=== PATIENT | female | born 2000 | race Hispanic/Latino ===

== ENCOUNTER 2022-12-12 10:17 | Inpatient (IN) | payer BC, OTHER ==
[2022-12-12] VITALS (19 sets, daily range): BP systolic 91–114; BP diastolic 43–68; PULSE 87–123; RESP 16–23; O2SAT 97–100
[~2022-12-12] VITALS: Ht 160 cm; Wt 62.1 kg
[2022-12-12 10:41] LABS: BASOPHILS # (AUTO) 0.12 K/uL (0.00-0.20); BASOPHILS % (AUTO) 0.9 % (0.0-5.0); EOSINOPHILS # (AUTO) 0.02 K/uL (0.00-0.70); EOSINOPHILS % (AUTO) 0.2 % (0.0-8.0); HEMATOCRIT 42.8 % (36-48); IMMATURE GRANULOCYTE ABSOLUTE 0.16 K/uL (0-1); LYMPHOCYTES # (AUTO) 2.2 K/uL (1.0-4.8); LYMPHOCYTES % (AUTO) 16.7 % (21.0-51.0); MEAN CORPUSCULAR HEMOGLOBIN 32.1 pg (27.0-33.0); MEAN CORPUSCULAR HGB CONC 32.2 g/dL (32.0-36.0); MEAN CORPUSCULAR VOLUME 99.5 fL (79-99); MONOCYTES # (AUTO) 0.9 K/uL (0.1-1.0); MONOCYTES % (AUTO) 6.7 % (3.0-13.0); NEUTROPHILS # (AUTO) 9.6 K/uL (1.8-7.7); NEUTROPHILS % (AUTO) 74.3 % (40.0-77.0); PLATELET COUNT (AUTO) 322 K/uL (130-400); RED CELL DISTRIBUTION WIDTH 12.7 % (11.0-15.5)
[2022-12-12] MEDS ORDERED: ONDANSETRON 4MG INJ ONE (10:59)
[2022-12-12] MEDS ORDERED: 0.9%NACL 1000ML 1,000 ML IV ONE ×2 (11:00→12:39)
[2022-12-12 11:01] LABS: ALBUMIN 3.1 g/dL (3.5-5.0); BILIRUBIN,TOTAL 0.5 mg/dL (0.2-1.0); CREATININE 1.3 mg/dL (0.5-1.5); POTASSIUM 4.5 mmol/L (3.5-5.1); TOTAL PROTEIN, SERUM 7.4 g/dL (6.0-8.3)
[2022-12-12] MEDS ORDERED: METOCLOPRAMIDE 10 MG/2 ML VIAL ONE ×2 (12:39→22:40)
[2022-12-12] MEDS ORDERED: INSULIN REGULAR, HUMAN 3ML 100 UNIT in 0.9%NACL 100ML 99 ML IV SCH ×2 (13:00)
[2022-12-12] MEDS ORDERED: METOCLOPRAMIDE 10 MG/2 ML VIAL IVP ONE (13:00)
[2022-12-12 13:07] LABS: ABG BASE EXCESS -25.5 mmol/L (-2.0-3.0); ABG OXYGEN SATURATION 97.4 % (95.0-99.0); ABG PCO2 < 15 mmHg (32-45); ABG PH 7.038 (7.350-7.450); PO2, ARTERIAL BG 133.4 mmHg (83.0-108.0); VENT MODE, BG RA (ROOM AIR)
[2022-12-12] MEDS ORDERED: 0.9%NACL 1000ML 1,000 ML IV SCH (13:30)
[2022-12-12] MEDS ORDERED: MAGNESIUM 2GM PREMIX 50ML 50 ML IV SCH (13:30)
[2022-12-12 13:46] LABS: APPEARANCE,URINE CLEAR (CLEAR); BILIRUBIN,URINE NEGATIVE (NEGATIVE); COLOR,URINE COLORLESS (YELLOW); GLUCOSE, URINE (UA) >=1000 mg/dL (NEGATIVE); KETONES,URINE 150 mg/dL (NEGATIVE); LEUKOCYTE ESTERASE ,URINE NEGATIVE Leu/uL (NEGATIVE); NITRATE,URINE NEGATIVE (NEGATIVE); OCCULT BLOOD,URINE NEGATIVE (NEGATIVE); PH,URINE 5.5 (5.0-8.0); PROTEIN,URINE 30 mg/dL (NEGATIVE); UROBILINOGEN,URINE 0.2 mg/dL (0.2-1.0)
[2022-12-12 13:47] LABS: ADD UA MICROSCOPIC YES
[2022-12-12 13:51] LABS: MUCUS,URINE RARE LPF (None Seen); RBC,URINE 0-1 /HPF (0-1); SQUAMOUS EPITHELIAL CELL,UR RARE /HPF (0-2); WBC,URINE 0-1 /HPF (0-1)
[2022-12-12] MEDS ORDERED: INSULIN GLARGINE 100 UNITS/ML 10 ML VIAL SQ ONE (13:59)
[2022-12-12] MEDS ORDERED: POTASSIUM CHLORIDE 10% ELIXIR 20 MEQ/15 ML UDCUP PO PRN (14:00)
[2022-12-12] MEDS ORDERED: LACTATED RINGERS 1000ML 1,047 ML IV ONE (14:00)
[2022-12-12] MEDS ORDERED: POTASSIUM CHLORIDE 20MEQ/100ML 100 ML IV PRN ×2 (14:00)
[2022-12-12 14:42] LABS: CHLORIDE 106 mmol/L (101-111); CREATININE 1.2 mg/dL (0.5-1.5); GLOMERULAR FILTR. RATE CALC 65 mL/min (>90); POTASSIUM 5.2 mmol/L (3.5-5.1); SODIUM SERUM 141 mmol/L (136-145); UREA NITROGEN, BLOOD 19 mg/dL (7-18)
[2022-12-12 14:49] LABS: CARBON DIOXIDE < 5 mmol/L (21-32); GLUCOSE,RANDOM 544 mg/dL (70-105)
[2022-12-12] MEDS ORDERED: SODIUM BICARB 50MEQ 50ML VIAL 150 ML ONE (15:05)
[2022-12-12 17:47] LABS: CREATININE 1.2 mg/dL (0.5-1.5); POTASSIUM 3.6 mmol/L (3.5-5.1)
[2022-12-12] MEDS: D5W-1/2 NS/20MEQ KCL 1,000 ML IV SCH (18:05)
[2022-12-12] MEDS ORDERED: INSU200I SQ (18:12)
[2022-12-12] MEDS ORDERED: PANTOPRAZOLE 40 MG/VIAL ONE (20:09)
[2022-12-12] MEDS: ONDANSETRON 4MG INJ IVP PRN (20:15)
[2022-12-12] MEDS: POTASSIUM CHLORIDE 10MEQ/100ML 100 ML IV PRN ×2 (20:15→21:41)
[2022-12-12] MEDS: INSULIN GLARGINE 100 UNITS/ML 10 ML VIAL SQ SCH (20:25)
[2022-12-12] MEDS: PANTOPRAZOLE 40 MG/VIAL IVP SCH (21:00)
[2022-12-12 21:28] LABS: CREATININE 1.1 mg/dL (0.5-1.5); POTASSIUM 3.2 mmol/L (3.5-5.1)
[2022-12-12] MEDS ORDERED: PHARMACY COMMUNICATION MISC SCH (22:30)
[2022-12-12] MEDS ORDERED: MAG/ALUM/SIMETH 30 ML UDCUP ONE (22:30)
[2022-12-12] MEDS: METOCLOPRAMIDE 10 MG/2 ML VIAL IVP SCH (22:30)
[2022-12-12] MEDS ORDERED: LIDOCAINE HCL 2% VISCOUS 15 ML UDCUP ONE (22:32)
[2022-12-13] VITALS (29 sets, daily range): BP systolic 93–115; BP diastolic 43–71; PULSE 88–115; RESP 9–22; O2SAT 97–99
[2022-12-13] MEDS: POTASSIUM CHLORIDE 10MEQ/100ML 100 ML IV PRN ×5 (00:02→08:09)
[2022-12-13 00:23] LABS: SARS-CoV-2, RNA, NAAT NEGATIVE SARS CoV-2 (NEGATIVE)
[2022-12-13 00:26] LABS: INFLUENZA TYPE A Negative For Type A (NEGATIVE); INFLUENZA TYPE B Negative For Type B (NEGATIVE)
[2022-12-13] MEDS ORDERED: COMPOUND PO MISCELLANEOUS 1 EACH MISC MISC PRN (00:30)
[2022-12-13] MEDS ORDERED: MAG/AL/SIMETH 30 ML+LIDO2% VISC+DIPHEN 75MG 30ML PO PRN ×3 (00:30)
[2022-12-13 01:26] LABS: CREATININE 1.1 mg/dL (0.5-1.5); POTASSIUM 3.5 mmol/L (3.5-5.1)
[2022-12-13] MEDS: D5W-1/2 NS/20MEQ KCL 1,000 ML IV SCH ×2 (01:30→06:44)
[2022-12-13] MEDS: ONDANSETRON 4MG INJ IVP PRN (04:06)
[2022-12-13 04:10] LABS: BASOPHILS # (AUTO) 0.04 K/uL (0.00-0.20); BASOPHILS % (AUTO) 0.3 % (0.0-5.0); HEMATOCRIT 36.6 % (36-48); IMMATURE GRANULOCYTE ABSOLUTE 0.09 K/uL (0-1); LYMPHOCYTES # (AUTO) 2.3 K/uL (1.0-4.8); LYMPHOCYTES % (AUTO) 19.2 % (21.0-51.0); MEAN CORPUSCULAR HEMOGLOBIN 32.4 pg (27.0-33.0); MEAN CORPUSCULAR HGB CONC 33.6 g/dL (32.0-36.0); MEAN CORPUSCULAR VOLUME 96.3 fL (79-99); MONOCYTES # (AUTO) 1.4 K/uL (0.1-1.0); MONOCYTES % (AUTO) 12.1 % (3.0-13.0); NEUTROPHILS # (AUTO) 8.1 K/uL (1.8-7.7); NEUTROPHILS % (AUTO) 67.6 % (40.0-77.0); PLATELET COUNT (AUTO) 301 K/uL (130-400); RED CELL DISTRIBUTION WIDTH 13.1 % (11.0-15.5)
[2022-12-13 04:21] LABS: MAGNESIUM 1.5 mg/dL (1.80-2.40); POTASSIUM 3.6 mmol/L (3.5-5.1)
[2022-12-13] MEDS: METOCLOPRAMIDE 10 MG/2 ML VIAL IVP SCH ×3 (06:30→17:37)
[2022-12-13] MEDS: INSULIN GLARGINE 100 UNITS/ML 10 ML VIAL SQ SCH ×2 (06:43→21:00)
[2022-12-13] MEDS: INSULIN HUMULIN R 100 UNIT/ML 3ML SQ SCH ×4 (07:30→21:00)
[2022-12-13] MEDS ORDERED: MAGNESIUM 2GM PREMIX 50ML 50 ML IV SCH (07:30)
[2022-12-13] MEDS: PANTOPRAZOLE 40 MG/VIAL IVP SCH ×2 (08:10→21:00)
[2022-12-13] MEDS: 0.9%NACL 1000ML 1,000 ML IV SCH ×2 (09:34→17:41)
[2022-12-13 09:45] LABS: CREATININE 0.8 mg/dL (0.5-1.5); POTASSIUM 3.6 mmol/L (3.5-5.1)
[2022-12-13] MEDS ORDERED: INSULIN GLARGINE 100 UNITS/ML 10 ML VIAL SQ ONE (12:00)
[2022-12-13 13:34] LABS: POTASSIUM 2.9 mmol/L (3.5-5.1)
[2022-12-13] MEDS: KCL 20 MEQ ERTAB PO PRN ×3 (13:48→17:37)
[2022-12-13 18:07] LABS: CREATININE 0.7 mg/dL (0.5-1.5); POTASSIUM 3.1 mmol/L (3.5-5.1)
[2022-12-13 21:40] LABS: CREATININE 0.6 mg/dL (0.5-1.5); POTASSIUM 3.3 mmol/L (3.5-5.1)
[2022-12-14 05:00] VITALS: BP 107/68; PULSE 93; RESP 16
[2022-12-14 05:03] LABS: HEMATOCRIT 33.9 % (36-48); MEAN CORPUSCULAR HEMOGLOBIN 31.8 pg (27.0-33.0); MEAN CORPUSCULAR HGB CONC 33.6 g/dL (32.0-36.0); MEAN CORPUSCULAR VOLUME 94.4 fL (79-99); RED BLOOD CELL COUNT(AUTO) 3.59 MIL/uL (4.00-5.50); RED CELL DISTRIBUTION WIDTH 12.9 % (11.0-15.5); WHITE BLOOD COUNT (AUTO) 10.1 K/uL (4.8-10.8)
[2022-12-14 05:31] LABS: ALBUMIN 2.2 g/dL (3.5-5.0); BILIRUBIN,DIRECT 0.1 mg/dL (0.0-0.3); BILIRUBIN,TOTAL 0.2 mg/dL (0.2-1.0); CREATININE 0.6 mg/dL (0.5-1.5); MAGNESIUM 2.4 mg/dL (1.80-2.40); POTASSIUM 3.4 mmol/L (3.5-5.1); TOTAL PROTEIN, SERUM 5.5 g/dL (6.0-8.3)
[2022-12-14] MEDS: METOCLOPRAMIDE 10 MG/2 ML VIAL IVP SCH ×2 (06:26→11:48)
[2022-12-14] MEDS: INSULIN HUMULIN R 100 UNIT/ML 3ML SQ SCH ×3 (06:28→11:55)
[2022-12-14] MEDS: INSULIN GLARGINE 100 UNITS/ML 10 ML VIAL SQ SCH (06:29)
[2022-12-14 08:00] VITALS: BP 119/77; PULSE 99; RESP 17; O2SAT 100
[2022-12-14] MEDS: PANTOPRAZOLE 40 MG/VIAL IVP SCH (08:18)
[2022-12-14] MEDS ORDERED: KCL 20 MEQ ERTAB PO ONE (10:30)
[2022-12-14 11:28] VITALS: BP 108/77; PULSE 103; RESP 17
[2022-12-14 11:29] VITALS: BP 161/64; PULSE 71; RESP 19
[2022-12-14] MEDS ORDERED: INSULIN HUMULIN R 100 UNIT/ML 3ML SQ SCH (11:30)
== END 2022-12-14 15:30 | disposition home or self-care (01) | DRG 637 ==
LOC: EDH 10:17 → EDHIP 10:18 → 2BH 15:43 → 4CH 12-13 12:00
PROVIDERS: ADMIT Internal Medicine; ATTEND Internal Medicine
DX: E10.10 Type 1 diabetes mellitus with ketoacidosis without coma (principal); R57.1 Hypovolemic shock; N17.9 Acute kidney failure, unspecified; E46 Unspecified protein-calorie malnutrition; E86.9 Volume depletion, unspecified; Z20.822 Contact with and (suspected) exposure to COVID-19; R00.0 Tachycardia, unspecified; E86.0 Dehydration; Z59.7 Insufficient social insurance and welfare support; Z79.4 Long term (current) use of insulin; Z91.148 Patient's other noncompliance with medication regimen for other reason; Z79.899 Other long term (current) drug therapy; Z68.24 Body mass index [BMI] 24.0-24.9, adult
CPT/HCPCS: 36415; 36600; 71045; 74176; 80048; 80053; 80061; 80076; 81001; 81025; 82010; 82803; 82948; 83036; 83605; 83690; 83735; 84145; 85025; 85027; 87635; 87804; C9113; G0378; J1815; J2405; J2765; J3475; J3480; J3490; J7030; J7120

== ENCOUNTER 2023-12-10 21:14 | Inpatient (IN) | payer BC, OTHER ==
[~2023-12-10] VITALS: Ht 160 cm; Wt 65.3 kg
[~2023-12-10 21:14] MED LIST: INSLAN SQ; INSU100V3 SQ
[2023-12-10 22:05] LABS: SARS-CoV-2, RNA, NAAT NEGATIVE SARS CoV-2 (NEGATIVE)
[2023-12-10 22:17] LABS: INFLUENZA TYPE A Negative For Type A (NEGATIVE); INFLUENZA TYPE B Negative For Type B (NEGATIVE)
[2023-12-10 22:20] LABS: RAPID GROUP A STREP positive (NEGATIVE)
[2023-12-10 22:32] LABS: BASOPHILS # (AUTO) 0.08 K/uL (0.00-0.20); BASOPHILS % (AUTO) 0.4 % (0.0-5.0); EOSINOPHILS # (AUTO) 2.13 K/uL (0.00-0.70); EOSINOPHILS % (AUTO) 10.4 % (0.0-8.0); HEMATOCRIT 40.6 % (36-48); IMMATURE GRANULOCYTE ABSOLUTE 0.16 K/uL (0-1); LYMPHOCYTES # (AUTO) 1.9 K/uL (1.0-4.8); LYMPHOCYTES % (AUTO) 9.1 % (21.0-51.0); MEAN CORPUSCULAR HGB CONC 34.7 g/dL (32.0-36.0); MEAN CORPUSCULAR VOLUME 89.2 fL (79-99); MONOCYTES % (AUTO) 4.8 % (3.0-13.0); NEUTROPHILS # (AUTO) 15.3 K/uL (1.8-7.7); NEUTROPHILS % (AUTO) 74.5 % (40.0-77.0); PLATELET COUNT (AUTO) 299 K/uL (130-400); RED BLOOD CELL COUNT(AUTO) 4.55 MIL/uL (4.00-5.50); RED CELL DISTRIBUTION WIDTH 11.6 % (11.0-15.5); WHITE BLOOD COUNT (AUTO) 20.6 K/uL (4.8-10.8)
[2023-12-10 22:44] LABS: CREATININE 1.4 mg/dL (0.5-1.0); POTASSIUM 4.5 mmol/L (3.5-5.1)
[2023-12-10] MEDS ORDERED: 0.9%NACL 1000ML 1,000 ML IV SCH (23:00)
[2023-12-10 23:56] LABS: WBC MORPHOLOGY CONSISTENT W/DIFF
[2023-12-11 00:02] LABS: ABG OXYGEN SATURATION 64.5 % (95.0-99.0); BASE EXCESS,VENOUS BLOOD GAS 0.8 (-2.0-3.0); DEVICE COMMENT VBG JOHNNY RN; HCO3,VENOUS BLOOD GAS 24.8 (21.0-28.0); PCO2,VENOUS BLOOD GAS 38 (32-45); PH,VENOUS BLOOD GAS 7.431 (7.350-7.450); PO2,VENOUS BLOOD GAS 29.5 mmHg (35.0-45.0); VENT MODE, BG RA (ROOM AIR)
[2023-12-11] MEDS: 0.9%NACL 1000ML 1,572 ML IV SCH (00:44)
[2023-12-11] MEDS: CEFTRIAXONE 1G VIAL IVPB SCH (00:57)
[2023-12-11] MEDS: ONDANSETRON 4MG INJ IVP SCH (00:57)
[2023-12-11] MEDS: INSULIN HUMULIN R 100 UNIT/ML 3ML IV ONE (02:10)
[2023-12-11] MEDS ORDERED: ACETAMINOPHEN 325 MG TAB PO PRN ×3 (03:00)
[2023-12-11] MEDS ORDERED: HYDRALAZINE 20MG/ML VIAL IV PRN (03:00)
[2023-12-11] MEDS ORDERED: VANCOMYCIN PROTOCOL PER PHARMACY IV PRN (03:00)
[2023-12-11] MEDS ORDERED: NITROGLYCERIN 0.4 MG SL TAB SL PRN (03:00)
[2023-12-11] MEDS ORDERED: OXYCODONE/ACETAMIN 5/325MG TAB PO PRN (03:00)
[2023-12-11] MEDS ORDERED: DEXTROSE 50%-WATER 50 ML DISP.SYRIN IV PRN (03:00)
[2023-12-11] MEDS ORDERED: MAG/ALUM/SIMETH 30 ML UDCUP PO PRN (03:00)
[2023-12-11] MEDS ORDERED: LACTULOSE 20 GM/30 ML UDCUP PO PRN (03:00)
[2023-12-11] MEDS ORDERED: DiphenhydrAMINE HCL 50 MG/ML VIAL IV PRN (03:00)
[2023-12-11] MEDS ORDERED: ZOLPIDEM TARTRATE 5 MG TAB PO PRN (03:00)
[2023-12-11] MEDS ORDERED: FAMOTIDINE 20MG VIAL IV PRN (03:00)
[2023-12-11] MEDS ORDERED: GLUCAGON 1MG KIT 1 MG ML IM PRN (03:00)
[2023-12-11] MEDS: METRONIDAZOLE 500MG/100ML BAG 100 ML IV SCH (04:15)
[2023-12-11] MEDS: 0.9%NACL 1000ML 1,000 ML IV SCH (04:15)
[2023-12-11] MEDS: ONDANSETRON 4MG INJ IV PRN (06:36)
[2023-12-11] MEDS: VANCOMYCIN 1.5 GM/250 ML BAG 250 ML IV ONE (06:47)
[2023-12-11 07:02] LABS: ALANINE AMINOTRANSFERASE 23 U/L (12-78); ALBUMIN 2.6 g/dL (3.5-5.0); AMMONIA 22 umol/L (11-32); ASPARTATE AMINOTRANSFERASE 14 U/L (10-37); BILIRUBIN,DIRECT < 0.1 mg/dL (0.0-0.3); BILIRUBIN,TOTAL 0.2 mg/dL (0.2-1.0); CARBON DIOXIDE 28 mmol/L (21-32); CHLORIDE 107 mmol/L (101-111); CREATININE 0.9 mg/dL (0.5-1.0); GLOMERULAR FILTR. RATE CALC 92 mL/min (>90); GLUCOSE,RANDOM 84 mg/dL (70-105); POTASSIUM 3.5 mmol/L (3.5-5.1); SODIUM SERUM 143 mmol/L (136-145); TOTAL PROTEIN, SERUM 6.6 g/dL (6.0-8.3); UREA NITROGEN, BLOOD 13 mg/dL (7-18)
[2023-12-11] MEDS: INSULIN HUMULIN R 100 UNIT/ML 3ML SQ SCH (07:30)
[2023-12-11 07:46] LABS: APPEARANCE,URINE CLOUDY (CLEAR); BILIRUBIN,URINE NEGATIVE (NEGATIVE); COLOR,URINE LIGHT-YELLOW (YELLOW); GLUCOSE, URINE (UA) >=1000 mg/dL (NEGATIVE); KETONES,URINE 20 mg/dL (NEGATIVE); LEUKOCYTE ESTERASE ,URINE NEGATIVE Leu/uL (NEGATIVE); NITRATE,URINE NEGATIVE (NEGATIVE); OCCULT BLOOD,URINE NEGATIVE (NEGATIVE); PROTEIN,URINE 10 mg/dL (NEGATIVE); UROBILINOGEN,URINE 0.2 mg/dL (0.2-1.0)
[2023-12-11 07:47] LABS: ADD UA MICROSCOPIC YES
[2023-12-11 07:53] LABS: MUCUS,URINE RARE LPF (None Seen); SQUAMOUS EPITHELIAL CELL,UR MANY /HPF (0-2)
[2023-12-11 08:52] LABS: BASOPHILS # (AUTO) 0.05 K/uL (0.00-0.20); BASOPHILS % (AUTO) 0.3 % (0.0-5.0); EOSINOPHILS # (AUTO) 0.09 K/uL (0.00-0.70); EOSINOPHILS % (AUTO) 0.5 % (0.0-8.0); HEMATOCRIT 37.9 % (36-48); IMMATURE GRANULOCYTE ABSOLUTE 0.07 K/uL (0-1); LYMPHOCYTES # (AUTO) 2.4 K/uL (1.0-4.8); LYMPHOCYTES % (AUTO) 14.1 % (21.0-51.0); MEAN CORPUSCULAR HEMOGLOBIN 31.3 pg (27.0-33.0); MONOCYTES # (AUTO) 1.8 K/uL (0.1-1.0); MONOCYTES % (AUTO) 10.6 % (3.0-13.0); NEUTROPHILS # (AUTO) 12.7 K/uL (1.8-7.7); NEUTROPHILS % (AUTO) 74.1 % (40.0-77.0); PLATELET COUNT (AUTO) 228 K/uL (130-400); RED BLOOD CELL COUNT(AUTO) 4.12 MIL/uL (4.00-5.50); RED CELL DISTRIBUTION WIDTH 11.6 % (11.0-15.5); WHITE BLOOD COUNT (AUTO) 17.1 K/uL (4.8-10.8)
[2023-12-11] MEDS ORDERED: KCL 20 MEQ ERTAB PO ONE (09:00)
[2023-12-11] MEDS ORDERED: MAGNESIUM 2GM PREMIX 50ML 50 ML IV SCH ×2 (09:00)
[2023-12-11 09:40] LABS: B-TYPE NATRIURETIC PEPTIDE 68 pg/mL (0-100)
[2023-12-11] MEDS: APAP/CODEINE 120/12MG 5ML PO PRN (09:41)
[2023-12-11] MEDS: GUAIFENESIN-DM 200/20 MG 10 ML PO PRN (09:41)
[2023-12-11] MEDS: KETOROLAC 15MG/ML VIAL (15MG/ML) IV PRN (09:42)
[2023-12-11] MEDS: POTASSIUM CHLORIDE 10% ELIXIR 20 MEQ/15 ML UDCUP PO ONE (09:42)
[2023-12-11] MEDS: FAMOTIDINE 20MG VIAL IV SCH (10:03)
[2023-12-11] MEDS ORDERED: INSLAN SQ ×2 (18:02→18:40)
[2023-12-11 18:24] VITALS: O2SAT 99
[2023-12-11] MEDS ORDERED: ESCI5TAB16 PO (18:48)
[2023-12-11] MEDS ORDERED: ESCI5TAB PO (18:50)
[2023-12-11] MEDS ORDERED: INSU500V SQ (19:14)
[2023-12-11] MEDS: VANCOMYCIN 750MG VIAL IVPB SCH (19:29)
[2023-12-11 20:00] VITALS: O2SAT 97
[2023-12-11 20:30] VITALS: BP 123/84; PULSE 64; RESP 18
[2023-12-12] VITALS (9 sets, daily range): BP systolic 127–145; BP diastolic 56–80; PULSE 85–100; RESP 18–20; TEMP 99.2; O2SAT 99–100
[2023-12-12] MEDS: ACETAMINOPHEN 650 MG/20.3 ML UDCUP PO PRN (02:58)
[2023-12-12 05:13] LABS: BASOPHILS # (AUTO) 0.03 K/uL (0.00-0.20); BASOPHILS % (AUTO) 0.2 % (0.0-5.0); EOSINOPHILS # (AUTO) 0.33 K/uL (0.00-0.70); EOSINOPHILS % (AUTO) 2.7 % (0.0-8.0); HEMATOCRIT 32.5 % (36-48); IMMATURE GRANULOCYTE ABSOLUTE 0.05 K/uL (0-1); LYMPHOCYTES # (AUTO) 1.4 K/uL (1.0-4.8); LYMPHOCYTES % (AUTO) 11.6 % (21.0-51.0); MEAN CORPUSCULAR HEMOGLOBIN 30.5 pg (27.0-33.0); MEAN CORPUSCULAR HGB CONC 33.2 g/dL (32.0-36.0); MEAN CORPUSCULAR VOLUME 91.8 fL (79-99); MONOCYTES # (AUTO) 1.1 K/uL (0.1-1.0); MONOCYTES % (AUTO) 9.2 % (3.0-13.0); NEUTROPHILS # (AUTO) 9.1 K/uL (1.8-7.7); NEUTROPHILS % (AUTO) 75.9 % (40.0-77.0); PLATELET COUNT (AUTO) 224 K/uL (130-400); RED BLOOD CELL COUNT(AUTO) 3.54 MIL/uL (4.00-5.50); RED CELL DISTRIBUTION WIDTH 11.7 % (11.0-15.5)
[2023-12-12 05:36] LABS: ALBUMIN 2.1 g/dL (3.5-5.0); BILIRUBIN,TOTAL 0.1 mg/dL (0.2-1.0); CREATININE 0.8 mg/dL (0.5-1.0); MAGNESIUM 1.7 mg/dL (1.80-2.40); POTASSIUM 3.8 mmol/L (3.5-5.1); TOTAL PROTEIN, SERUM 5.7 g/dL (6.0-8.3)
[2023-12-12] MEDS: MAGNESIUM 2GM PREMIX 50ML 50 ML IV PRN (05:52)
[2023-12-12] MEDS ORDERED: MAGNESIUM 2GM PREMIX 50ML 50 ML IV SCH (09:00)
[2023-12-12] MEDS: CEFTRIAXONE 1G VIAL IVPB SCH (15:20)
[2023-12-12] MEDS: PROMETHAZINE HCL 25 MG/ML 1ML AMPULE IM ONE (21:18)
[2023-12-13] VITALS (8 sets, daily range): BP systolic 113–138; BP diastolic 61–86; PULSE 60–75; RESP 14–19; O2SAT 100
[2023-12-13 05:28] LABS: ALBUMIN 2.2 g/dL (3.5-5.0); BILIRUBIN,TOTAL 0.2 mg/dL (0.2-1.0); CREATININE 0.7 mg/dL (0.5-1.0); MAGNESIUM 2.1 mg/dL (1.80-2.40); POTASSIUM 3.6 mmol/L (3.5-5.1); TOTAL PROTEIN, SERUM 6.2 g/dL (6.0-8.3)
[2023-12-13 05:29] LABS: BASOPHILS # (AUTO) 0.03 K/uL (0.00-0.20); BASOPHILS % (AUTO) 0.3 % (0.0-5.0); EOSINOPHILS # (AUTO) 0.23 K/uL (0.00-0.70); EOSINOPHILS % (AUTO) 2.7 % (0.0-8.0); HEMATOCRIT 35.5 % (36-48); IMMATURE GRANULOCYTE ABSOLUTE 0.03 K/uL (0-1); LYMPHOCYTES # (AUTO) 2.4 K/uL (1.0-4.8); LYMPHOCYTES % (AUTO) 28.1 % (21.0-51.0); MEAN CORPUSCULAR HEMOGLOBIN 31.4 pg (27.0-33.0); MEAN CORPUSCULAR HGB CONC 33.5 g/dL (32.0-36.0); MEAN CORPUSCULAR VOLUME 93.7 fL (79-99); MONOCYTES # (AUTO) 0.7 K/uL (0.1-1.0); MONOCYTES % (AUTO) 8.3 % (3.0-13.0); NEUTROPHILS # (AUTO) 5.2 K/uL (1.8-7.7); NEUTROPHILS % (AUTO) 60.3 % (40.0-77.0); PLATELET COUNT (AUTO) 251 K/uL (130-400); RED BLOOD CELL COUNT(AUTO) 3.79 MIL/uL (4.00-5.50); RED CELL DISTRIBUTION WIDTH 11.7 % (11.0-15.5); WHITE BLOOD COUNT (AUTO) 8.7 K/uL (4.8-10.8)
[2023-12-14 03:55] VITALS: BP 130/72; PULSE 66; RESP 18
[2023-12-14 05:30] LABS: BASOPHILS # (AUTO) 0.02 K/uL (0.00-0.20); BASOPHILS % (AUTO) 0.3 % (0.0-5.0); EOSINOPHILS # (AUTO) 0.34 K/uL (0.00-0.70); EOSINOPHILS % (AUTO) 4.8 % (0.0-8.0); HEMATOCRIT 35.5 % (36-48); IMMATURE GRANULOCYTE ABSOLUTE 0.03 K/uL (0-1); LYMPHOCYTES % (AUTO) 28.7 % (21.0-51.0); MEAN CORPUSCULAR HEMOGLOBIN 30.1 pg (27.0-33.0); MEAN CORPUSCULAR HGB CONC 32.7 g/dL (32.0-36.0); MONOCYTES # (AUTO) 0.7 K/uL (0.1-1.0); MONOCYTES % (AUTO) 10.4 % (3.0-13.0); NEUTROPHILS # (AUTO) 3.9 K/uL (1.8-7.7); NEUTROPHILS % (AUTO) 55.4 % (40.0-77.0); PLATELET COUNT (AUTO) 299 K/uL (130-400); RED BLOOD CELL COUNT(AUTO) 3.86 MIL/uL (4.00-5.50); RED CELL DISTRIBUTION WIDTH 11.7 % (11.0-15.5); WHITE BLOOD COUNT (AUTO) 7.1 K/uL (4.8-10.8)
[2023-12-14 06:01] LABS: CREATININE 0.7 mg/dL (0.5-1.0); POTASSIUM 3.2 mmol/L (3.5-5.1)
[2023-12-14 08:00] VITALS: BP 152/88; PULSE 77; RESP 16
[2023-12-14 09:00] VITALS: O2SAT 97
[2023-12-14 11:50] VITALS: BP 136/89; PULSE 71; RESP 14
== END 2023-12-14 16:30 | disposition home or self-care (01) | DRG 872 ==
LOC: EDH 21:14 → EDHIP 12-11 02:35 → 3CH 12-11 17:30
PROVIDERS: ADMIT Internal Medicine; ATTEND Internal Medicine
DX: A41.9 Sepsis, unspecified organism (principal); E87.20 Acidosis, unspecified; E10.65 Type 1 diabetes mellitus with hyperglycemia; E86.0 Dehydration; D64.9 Anemia, unspecified; J02.0 Streptococcal pharyngitis; E87.8 Other disorders of electrolyte and fluid balance, not elsewhere classified; Z22.330 Carrier of Group B streptococcus; Z83.3 Family history of diabetes mellitus; Z86.16 Personal history of COVID-19; Z79.4 Long term (current) use of insulin; Z79.899 Other long term (current) drug therapy
CPT/HCPCS: 36415; 36600; 71045; 80048; 80053; 80076; 80202; 81001; 82010; 82140; 82248; 82435; 82803; 82947; 82948; 83605; 83735; 83880; 84132; 84145; 84295; 84703; 85025; 87040; 87086; 87635; 87804; 87880; G0378; J0696; J1815; J1885; J2405; J2550; J3475; J3490; J3370

== ENCOUNTER 2024-04-10 18:58 | Emergency (ER) | payer OTHER ==
[~2024-04-10] VITALS: Ht 160 cm; Wt 61.2 kg
[~2024-04-10 18:58] MED LIST changes: +CEFD300C3 PO; +ESCI5TAB PO; -INSU100V3 SQ; +INSU200I SQ
--- NOTE | 2024-04-10 19:04 | NUR ---
UA CUP PROVIDED
--- NOTE | 2024-04-10 19:26 | ERN ---
General Chief Complaint: Nausea,Vomiting,Diarrhea Stated Complaint: N/V Time Seen by MD: 19:07 Source: patient History of Present Illness Initial Comments This is a 23-year-old female coming in to be evaluated for nausea and vomiting. Per patient these symptoms began earlier today shortly after eating pork. Patient also states that she has been having epigastric discomfort. Allergies: Coded Allergies: levofloxacin (Unverified Allergy, Unknown, 12/19/23) Home Meds Active Scripts Cefdinir (Cefdinir) 300 Mg Capsule, 300 MG PO BID for 3 Days, #6 CAP 0 Refills Prov:MONICA FIERRO MD 01/06/24 Insulin Lispro (Humalog Kwikpen) 200 Unit/Ml (3 Ml) Insuln.pen, 12 UNIT SQ TIDAC, #6 SYRINGE Prov:YELENA RUVALCABA MD 12/20/23 Reported Medications Escitalopram Oxalate (Lexapro) 5 Mg Tablet, 5 MG PO DAILY, TAB 12/11/23 Insulin Glargine,Hum.rec.anlog (Lantus) 100 Unit/Ml Inj, 30 UNITS SQ HS, ML 12/11/23 Past Medical History Past Medical History: Diabetes-Type I, Diabetes-Type II Medical History Other: DKA Past Surgical History: None Social History Social History: Negative, Lives with family Female( History) LMP: Mar 29, 2024 ROS Dictation CONSTITUTIONAL: No chills, no fever, no weakness, no diaphoresis, no malaise. HEAD/FACE: No signs of trauma. EENT: No eye pain, no blurred vision, no tearing, no double vision, no ear pain, no ear discharge, no nose pain, no nasal congestion, no throat pain, no throat swelling, no mouth pain. RESPIRATORY: No cough, no orthopnea, no SOB, no stridor, no wheezing. CARDIOVASCULAR: No chest pain, no edema, no palpitations, no syncope. GASTROINTESTINAL/ABDOMINAL: abdominal pain, no constipation, no diarrhea, nausea, vomiting. GENITOURINARY: No abnormal discharge, no dysuria, no frequent urination, no hematuria. No complaints of pain in the genitals. MUSCULOSKELETAL: No back pain, no gout, no joint pain, no joint swelling, no muscle pain, no muscle stiffness, no neck pain. INTEGUMENTARY: No change in color, no change in hair/nails, no dryness, no lesion, no lumps, no rash. NEUROLOGICAL/PSYCH: No anxiety, not depressed, no emotional problem, no headache, no numbness, no pre-existing deficit, no history of seizures, no tremors, no weakness. HEMATOLOGIC/LYMPHATIC: Not anemic, no history of blood clots, no apparent bleeding, no bruising, glands not swollen. All Systems Negative, Except as Noted. Physical Exam Physical Exam Dictation VITAL SIGNS: Reviewed. GENERAL APPEARANCE: Alert, oriented x3, no acute distress, obese. HEAD AND FACE: Non-traumatic. EYES: PERRL, pink conjunctivas, eyelid no trauma, anterior chamber clear. EARS: Pinnas intact and no signs of trauma or erythema. Ear canals clear and no discharge. TMs no erythema. NOSE: No discharge, no bleeding. OROPHARYNX: Mouth normal, teeth no caries, tongue pink. Pharynx clear, no erythema. Tonsils no exudates, no abscesses noted. Mucous membrane moist. NECK: Supple, non-tender, no thyromegaly, no masses, no JVD, no bruits. BREAST: Deferred. CHEST: No tenderness, no crepitus, no paradoxical movement, no retractions. LUNGS: Clear, well-ventilated, symmetric, no rales, no wheezing, no rhonchi, no stridor, good breath sounds bilaterally. HEART: Regular rate, regular rhythm, no murmur, no gallops. VASCULAR: No peripheral edema. ABDOMEN: Soft, positive bowel sounds, nondistended, no guarding, tender, no rebound, no masses no hepatomegaly, no splenomegaly, no Hsu's sign, no hernias. RECTAL: Deferred. GENITAL: Deferred. NEUROLOGICAL: Normal speech, gross motor function intact, gross sensory function intact. MUSCULOSKELETAL: Neck nontender, full range of motion, back nontender, full range of motion. EXTREMITIES: Nontender, full range of motion. SKIN: Color pink, dry, no turgor, no rash, no lacerations, no abrasions, no contusions. LYMPHATICS: Deferred. Results Laboratory and Microbiology Lab and Micro Result Laboratory Tests Test 04/10/24 19:24 White Blood Count 12.7 K/uL (4.8-10.8) H Red Blood Count 4.70 MIL/uL (4.00-5.50) Hemoglobin 13.7 g/dL (12.0-16.0) Hematocrit 41.2 % (36-48) Mean Corpuscular Volume 87.7 fL (79-99) Mean Corpuscular Hemoglobin 29.1 pg (27.0-33.0) Mean Corpuscular Hemoglobin Concent 33.3 g/dL (32.0-36.0) Red Cell Distribution Width 14.3 % (11.0-15.5) Platelet Count 404 K/uL (130-400) H Mean Platelet Volume 9.9 fL (7.5-10.5) Immature Granulocyte % (Auto) 0.2 % (0-1) Neutrophils (%) (Auto) 53.4 % (40.0-77.0) Lymphocytes (%) (Auto) 34.7 % (21.0-51.0) Monocytes (%) (Auto) 9.7 % (3.0-13.0) Eosinophils (%) (Auto) 1.3 % (0.0-8.0) Basophils (%) (Auto) 0.7 % (0.0-5.0) Neutrophils # (Auto) 6.8 K/uL (1.8-7.7) Lymphocytes # (Auto) 4.4 K/uL (1.0-4.8) Monocytes # (Auto) 1.2 K/uL (0.1-1.0) H Eosinophils # (Auto) 0.16 K/uL (0.00-0.70) Basophils # (Auto) 0.09 K/uL (0.00-0.20) Absolute Immature Granulocyte (auto 0.03 K/uL (0-1) Nucleated Red Blood Cells 0.0 % (0.0-0.19) Urine Color LIGHT-YELLOW (YELLOW) Urine Appearance CLOUDY (CLEAR) H Urine pH 6.5 (5.0-8.0) Urine Specific [place] 1.018 (1.001-1.031) Urine Protein 20 mg/dL (NEGATIVE) H Urine Glucose (UA) >=1000 mg/dL (NEGATIVE) H Urine Ketones 10 mg/dL (NEGATIVE) H Urine Occult Blood NEGATIVE (NEGATIVE) Urine Nitrate NEGATIVE (NEGATIVE) Urine Bilirubin NEGATIVE mg/dL (NEGATIVE) Urine Urobilinogen 0.2 mg/dL (0.2-1.0) Urine Leukocyte Esterase NEGATIVE Otf/uL Urine RBC 0-1 /HPF (0-1) Urine WBC 6-10 /HPF (0-1) H Urine Squamous Epithelial Cells FEW /HPF (0-2) Urine Bacteria RARE /HPF (None Seen) Urine Other Casts 3 /LPF (None Seen) Urine Yeast FEW /HPF (None Seen) Urine HCG, Qualitative NEGATIVE (NEGATIVE) Sodium Level 137 mmol/L (136-145) Potassium Level 3.0 mmol/L (3.5-5.1) *L Chloride Level 95 mmol/L (101-111) L Carbon Dioxide Level 37 mmol/L (21-32) H Blood Urea Nitrogen 20 mg/dL (7-18) H Creatinine 0.9 mg/dL (0.5-1.0) Glomerular Filtration Rate Calc 92 mL/min (>90) Random Glucose 159 mg/dL (70-105) H Total Calcium 9.9 mg/dL (8.5-10.1) Magnesium Level 2.20 mg/dL (1.80-2.40) Total Bilirubin 0.3 mg/dL (0.2-1.0) Aspartate Amino Transf (AST/SGOT) 13 U/L (10-37) Alanine Aminotransferase (ALT/SGPT) 29 U/L (12-78) Alkaline Phosphatase 106 U/L (50-136) Total Creatine Kinase 61 U/L (21-232) # Troponin I High Sensitivity < 4 ng/L (4-50) L Total Protein 8.6 g/dL (6.0-8.3) H Albumin 3.8 g/dL (3.5-5.0) Lipase 50 U/L (16-77) Labs Reviewed?: Yes MDM MDM: Differential diagnosis: Viral gastroenteritis, food poisoning, nausea and vomiting, Patient is a 23-year-old female coming in to be evaluated for nausea and vomiting. Laboratory workup positive for hypokalemia. Patient's potassium was replaced and patient was hydrated. Patient will be discharged with a diagnosis of viral gastroenteritis. ED Course Orders Procedure Category Date Status Time Cbc With Differential LAB 04/10/24 Complete 19:16 Comprehensive LAB 04/10/24 Complete Metabolic Panel 19:16 Troponin I High LAB 04/10/24 Complete Sensitivity 19:16 ,Urine Test LAB 04/10/24 Complete 19:16 Urinalysis Profile LAB 04/10/24 Complete 19:16 Lactated Ringers PHA 04/10/24 Complete 1000ml (Lactated 19:30 Ondansetron 4mg Inj PHA 04/10/24 Complete (Zofran 4mg Inj) 19:30 Pantoprazole 40mg Inj PHA 04/10/24 Complete (Protonix 40mg Inj 19:30 Creatine Kinase, Total LAB 04/10/24 Complete 19:16 Lipase LAB 04/10/24 Complete 19:16 Culture Urine LINDA 04/10/24 In Process 19:42 Magnesium LAB 04/10/24 Complete 20:06 Potassium Bicarb/Cit PHA 04/10/24 Complete Ac 25meq (K-Lyte Ta 20:30 0.9%Nacl 1000ml (Ns PHA 04/10/24 Complete 1000ml) 20:30 Current Medications Medications (Trade) Dose Ordered Sig/José Route PRN Reason Start Time Stop Time Status Last Admin Dose Admin Lactated Ringer's 1,000 ml @ 0 mls/hr ONCE ONCE IV 04/10/24 19:30 04/10/24 19:31 DC 04/10/24 20:50 Ondansetron HCl (zoFRAN 4MG INJ) 4 mg ONCE ONCE IVP 04/10/24 19:30 04/10/24 19:31 DC 04/10/24 20:50 Pantoprazole Sodium (PROTonix 40MG INJ) 40 mg ONCE ONCE IVP 04/10/24 19:30 04/10/24 19:31 DC 04/10/24 20:50 Potassium Bicarbonate (K-Lyte Tablet Eff 25 Meq Tablet.eff) 50 meq ONCE ONCE PO 04/10/24 20:30 04/10/24 20:31 DC 04/10/24 20:50 Sodium Chloride 1,000 ml @ 0 mls/hr ONCE ONCE IV 04/10/24 20:30 04/10/24 20:31 DC 04/10/24 20:50 Vital Signs Date Time Temp Pulse Resp B/P (MAP) Pulse Ox O2 Delivery O2 Flow Rate FiO2 04/10/24 19:36 98.8 105 20 121/85 98 Room Air* 0 21 04/10/24 19:00 95.9 115 20 124/74 98 Room Air DX & DISP Disposition: Discharge Departure Impression: Primary Impression: Dehydration Additional Impression: Viral gastroenteritis Condition: Stable Additional Instructions: FOLLOW-UP WITH PRIMARY CARE PROVIDER IN 1 TO 2 DAYS. TAKE MEDICATIONS DIRECTED HERE IN THE EMERGENCY ROOM. OKAY TO CONTINUE HOME MEDICATIONS UNLESS OTHERWISE DISCUSSED DURING YOUR VISIT IN THE EMERGENCY ROOM TODAY. RETURN TO YOUR NEAREST EMERGENCY ROOM IF SYMPTOMS WORSEN OR IF THERE IS NO IMPROVEMENT. CALL 911 IF YOU NEED IMMEDIATE ASSISTANCE. TAKE TYLENOL OPNY-LWQ-DCECCXO NEEDED AND IF NO CONTRAINDICATIONS ARE PRESENT. INCREASE ORAL HYDRATION. A WOUND CULTURE OR URINE CULTURE WAS ORDERED HERE IN THE EMERGENCY ROOM DEPARTMENT PLEASE FOLLOW-UP WITH PRIMARY CARE PROVIDER AND ADVISE THEM TO GET REPEAT PORTS FROM OUR FACILITY. IF YOU HAD ANY JENNIFER WRAP/SPLINTS THAT WERE APPLIED HERE, PLEASE DO NOT REMOVE THEM UNTIL YOU SEE YOUR PRIMARY CARE OR SPECIALTY. Referrals: Referrals: JULIET KENNEDY MD (PCP) Time of Disposition: 21:13 BRIGHT MAI MD Apr 10, 2024 19:25
[2024-04-10 19:35] LABS: BASOPHILS # (AUTO) 0.09 K/uL (0.00-0.20); BASOPHILS % (AUTO) 0.7 % (0.0-5.0); EOSINOPHILS # (AUTO) 0.16 K/uL (0.00-0.70); EOSINOPHILS % (AUTO) 1.3 % (0.0-8.0); HEMATOCRIT 41.2 % (36-48); IMMATURE GRANULOCYTE ABSOLUTE 0.03 K/uL (0-1); LYMPHOCYTES # (AUTO) 4.4 K/uL (1.0-4.8); LYMPHOCYTES % (AUTO) 34.7 % (21.0-51.0); MEAN CORPUSCULAR HEMOGLOBIN 29.1 pg (27.0-33.0); MEAN CORPUSCULAR HGB CONC 33.3 g/dL (32.0-36.0); MEAN CORPUSCULAR VOLUME 87.7 fL (79-99); MONOCYTES # (AUTO) 1.2 K/uL (0.1-1.0); MONOCYTES % (AUTO) 9.7 % (3.0-13.0); NEUTROPHILS # (AUTO) 6.8 K/uL (1.8-7.7); NEUTROPHILS % (AUTO) 53.4 % (40.0-77.0); PLATELET COUNT (AUTO) 404 K/uL (130-400); RED CELL DISTRIBUTION WIDTH 14.3 % (11.0-15.5); WHITE BLOOD COUNT (AUTO) 12.7 K/uL (4.8-10.8)
[2024-04-10 19:38] LABS: HCG,QUALITATIVE URINE NEGATIVE (NEGATIVE)
[2024-04-10 19:40] LABS: ADD UA MICROSCOPIC YES; APPEARANCE,URINE CLOUDY (CLEAR); BILIRUBIN,URINE NEGATIVE (NEGATIVE); COLOR,URINE LIGHT-YELLOW (YELLOW); GLUCOSE, URINE (UA) >=1000 mg/dL (NEGATIVE); KETONES,URINE 10 mg/dL (NEGATIVE); LEUKOCYTE ESTERASE ,URINE NEGATIVE Leu/uL (NEGATIVE); NITRATE,URINE NEGATIVE (NEGATIVE); OCCULT BLOOD,URINE NEGATIVE (NEGATIVE); PH,URINE 6.5 (5.0-8.0); PROTEIN,URINE 20 mg/dL (NEGATIVE); UROBILINOGEN,URINE 0.2 mg/dL (0.2-1.0)
[2024-04-10 19:42] LABS: BACTERIA,URINE RARE /HPF (None Seen); MUCUS,URINE RARE LPF (None Seen); OTHER CASTS, URINE 3 /LPF (None Seen); RBC,URINE 0-1 /HPF (0-1); SQUAMOUS EPITHELIAL CELL,UR FEW /HPF (0-2); YEAST,URINE BUDDING FEW /HPF (None Seen)
[2024-04-10 20:01] LABS: ALBUMIN 3.8 g/dL (3.5-5.0); BILIRUBIN,TOTAL 0.3 mg/dL (0.2-1.0); CREATININE 0.9 mg/dL (0.5-1.0); TOTAL PROTEIN, SERUM 8.6 g/dL (6.0-8.3)
[2024-04-10] MEDS: ondanSETRON 4MG INJ IVP ONE (20:50)
[2024-04-10] MEDS: PoTASSium BIcarbonate/CIT AC 25 MEQ TABLET.EFF PO ONE (20:50)
[2024-04-10] MEDS: PANTOPrazole 40 MG/VIAL IVP ONE (20:50)
[2024-04-10] MEDS: LACTATED RINGERS 1000ML 1,000 ML IV ONE (20:50)
[2024-04-10] MEDS: 0.9%NACL 1000ML 1,000 ML IV ONE (20:50)
[2024-04-10] MEDS ORDERED: FAMO20TA8 PO (21:15)
[2024-04-10] MEDS ORDERED: LACT1CAP90 PO (21:15)
[2024-04-10 21:56] VITALS: BP 120/84; PULSE 100; RESP 20; TEMP 98.7; O2SAT 98
== END 2024-04-10 22:06 | disposition home or self-care (01) ==
LOC: EDH 18:58
DX: E86.0 Dehydration (principal); A08.4 Viral intestinal infection, unspecified; E11.9 Type 2 diabetes mellitus without complications; Z79.4 Long term (current) use of insulin; Z79.899 Other long term (current) drug therapy; Z88.1 Allergy status to other antibiotic agents
CPT/HCPCS: 99284; 96374; 96361; 96375; 82550; 83735; 84484; 80053; 83690; 85025; 87086; 82948; 81001; 81025; 36415; J7120; J7030; J2405; J2470

== ENCOUNTER 2024-10-29 10:05 | Inpatient (IN) | payer OTHER ==
[~2024-10-29] VITALS: Ht 160 cm; Wt 64.0 kg
[~2024-10-29 10:05] MED LIST changes: -ESCI5TAB PO; +INSU100I29 SQ; -INSU200I SQ
[2024-10-29 11:17] LABS: BASOPHILS # (AUTO) 0.06 K/uL (0.00-0.20); BASOPHILS % (AUTO) 0.6 % (0.0-5.0); EOSINOPHILS # (AUTO) 0.08 K/uL (0.00-0.70); EOSINOPHILS % (AUTO) 0.8 % (0.0-8.0); IMMATURE GRANULOCYTE ABSOLUTE 0.04 K/uL (0-1); LYMPHOCYTES # (AUTO) 3.1 K/uL (1.0-4.8); LYMPHOCYTES % (AUTO) 30.8 % (21.0-51.0); MEAN CORPUSCULAR HEMOGLOBIN 30.6 pg (27.0-33.0); MEAN CORPUSCULAR HGB CONC 34.1 g/dL (32.0-36.0); MEAN CORPUSCULAR VOLUME 89.7 fL (79-99); MONOCYTES # (AUTO) 0.7 K/uL (0.1-1.0); MONOCYTES % (AUTO) 7.3 % (3.0-13.0); NEUTROPHILS # (AUTO) 6.1 K/uL (1.8-7.7); NEUTROPHILS % (AUTO) 60.1 % (40.0-77.0); PLATELET COUNT (AUTO) 533 K/uL (130-400); RED BLOOD CELL COUNT(AUTO) 4.57 MIL/uL (4.00-5.50); RED CELL DISTRIBUTION WIDTH 13.8 % (11.0-15.5); WHITE BLOOD COUNT (AUTO) 10.1 K/uL (4.8-10.8)
--- NOTE | 2024-10-29 11:20 | ERN ---
ED Note History of Present Illness Stated Complaint: NAUSEA/LIGHT HEADED Chief Complaint: Nausea,Vomiting,Diarrhea Time Seen by MD: 10:29 Time Seen by Midlevel: 10:33 Dictation: 24-year-old female with a history of diabetes coming in complaining of nausea. Patient was recently admitted to the hospital for DKA, was discharged on Friday with an antibiotic, cefdinir. Patient states she is having also decreased appetite, and had three episodes so emesis this morning. Patient states she did take her Lantus and Humalog. Allergies: Coded Allergies: levofloxacin (Unverified Allergy, Unknown, 12/19/23) Home Meds Active Scripts Cefdinir (Cefdinir) 300 Mg Capsule, 1 CAP PO BID for 5 Days, #10 CAP 0 Refills Prov:MONICA FIERRO MD 10/24/24 Reported Medications Insulin Glargine,Hum.rec.anlog (Lantus) 100 Unit/Ml Inj, 15 UNITS SQ DAILY, ML 10/20/24 Insulin Lispro (Humalog Brett Kwikpen) 100 Unit/Ml Ins.pen.hf, 8 UNIT SQ TIDAC 10/20/24 Past Medical History Past Medical History: Diabetes-Type I Additional Past Medical Hx: DKA Surgical History: None Social History: Negative, Lives with family LMP: Oct 22, 2024 Review of System Dictation Constitutional: Negative for fever,chills, and weight loss Eyes: Negative for injury, pain,redness, and discharge ENT: Negative for injury,pain or swelling Cardiovascular: Negative for chest pain, palpitations, and edema Respiratory: Negative for shortness of breath, cough, and wheezing, Abdomen/GI: Complaining of nausea, vomiting Back: Negative for injury and pain : Negative for injury, bleeding and discharge MS/Extremity: Negative for injury and deformity Skin: Negative for rash, and discoloration Neuro: Negative for headache, weakness, numbness, tingling, and seizure Psych: Negative for suicide ideation, homicidal ideation, and hallucinations Review of Systems: was completed Initial Vital Sign VS Vital Signs Date Time Temp Pulse Resp B/P (MAP) Pulse Ox O2 Delivery O2 Flow Rate FiO2 10/29/24 10:08 98.1 120 20 87/54 99 Room Air 0 10/29/24 11:55 21 Physical Exam Dictation General: awake, alert, NAD Head/Face: Normocephalic, atraumatic Eyes: PERRL, EOMI, vision at baseline ENT: oral cavity clear, TMs clear, no signs of infection Neck: Trachea midline, supple, no nuchal rigidity Cardiovascular: RRR, normal S1/S2, No MRGs, no JVD Respiratory: CTAB, no respiratory distress, No rales or wheezes Abdomen: Soft, non-tender, non-distended, normal bowel sounds, no guarding or rebound. Skin: Warm, dry, normal turgor, no rash MS/Extremity: Pulses equal, no cyanosis, neurovascular intact, FROM Neuro: COAx4, GCS 15, strength 5/5, CN 2-12 intact, normal cerebellar exam, normal gait, Psych: Normal behavior, mood, and affect normal Results (Laboratory/Radiology) Laboratory/Radiology Laboratory Tests Test 10/29/24 10:11 10/29/24 11:05 10/29/24 11:40 10/29/24 13:22 Whole Blood Glucose 79 MG/DL (70-110) 47 MG/DL (70-110) *L White Blood Count 10.1 K/uL (4.8-10.8) Red Blood Count 4.57 MIL/uL (4.00-5.50) Hemoglobin 14.0 g/dL (12.0-16.0) Hematocrit 41.0 % (36-48) Mean Corpuscular Volume 89.7 fL (79-99) Mean Corpuscular Hemoglobin 30.6 pg (27.0-33.0) Mean Corpuscular Hemoglobin Concent 34.1 g/dL (32.0-36.0) Red Cell Distribution Width 13.8 % (11.0-15.5) Platelet Count 533 K/uL (130-400) H Mean Platelet Volume 9.1 fL (7.5-10.5) Immature Granulocyte % (Auto) 0.4 % (0-1) Neutrophils (%) (Auto) 60.1 % (40.0-77.0) Lymphocytes (%) (Auto) 30.8 % (21.0-51.0) Monocytes (%) (Auto) 7.3 % (3.0-13.0) Eosinophils (%) (Auto) 0.8 % (0.0-8.0) Basophils (%) (Auto) 0.6 % (0.0-5.0) Neutrophils # (Auto) 6.1 K/uL (1.8-7.7) Lymphocytes # (Auto) 3.1 K/uL (1.0-4.8) Monocytes # (Auto) 0.7 K/uL (0.1-1.0) Eosinophils # (Auto) 0.08 K/uL (0.00-0.70) Basophils # (Auto) 0.06 K/uL (0.00-0.20) Absolute Immature Granulocyte (auto 0.04 K/uL (0-1) Nucleated Red Blood Cells 0.0 % (0.0-0.19) Sodium Level 143 mmol/L (136-145) Potassium Level 4.0 mmol/L (3.5-5.1) Chloride Level 102 mmol/L (101-111) Carbon Dioxide Level 29 mmol/L (21-32) Blood Urea Nitrogen 32 mg/dL (7-18) H Creatinine 1.2 mg/dL (0.5-1.0) H Glomerular Filtration Rate Calc 64 mL/min (>90) Random Glucose 63 mg/dL (70-105) L Total Calcium 10.4 mg/dL (8.5-10.1) H Urine Color LIGHT-YELLOW (YELLOW) Urine Appearance CLEAR (CLEAR) Urine pH 5.0 (5.0-8.0) Urine Specific [place] 1.021 (1.001-1.031) Urine Protein 10 mg/dL (NEGATIVE) H Urine Glucose (UA) >=1000 mg/dL (NEGATIVE) H Urine Ketones >=80 mg/dL (NEGATIVE) Urine Occult Blood NEGATIVE (NEGATIVE) Urine Nitrate NEGATIVE (NEGATIVE) Urine Bilirubin 0.5 mg/dL (NEGATIVE) H Urine Urobilinogen 2.0 mg/dL (0.2-1.0) H Urine Leukocyte Esterase NEGATIVE Otf/uL Urine RBC 0-1 /HPF (0-1) Urine WBC 6-10 /HPF (0-1) H Urine Squamous Epithelial Cells FEW /HPF (0-2) Urine Bacteria None /HPF (None Seen) Urine Hyaline Casts 11-25 /LPF (0-1 /LPF) H Urine HCG, Qualitative NEGATIVE (NEGATIVE) Test 10/29/24 13:39 10/29/24 14:55 10/29/24 15:36 10/29/24 17:19 Whole Blood Glucose 121 MG/DL (70-110) #H 107 MG/DL (70-110) 253 MG/DL (70-110) #H Hemoglobin A1c 11.8 % (4.0-6.0) H Estimated Average Glucose (eAG) 292 mg/dL (70-126) H Whole Blood Ketones Quantitative 0.7 mmol/L (0.0-0.6) H Total Bilirubin 0.2 mg/dL (0.2-1.0) Direct Bilirubin 0.1 mg/dL (0.0-0.3) Aspartate Amino Transf (AST/SGOT) 16 U/L (10-37) Alanine Aminotransferase (ALT/SGPT) 32 U/L (12-78) Alkaline Phosphatase 99 U/L (50-136) C-Reactive Protein, Quantitative 15.60 mg/L (0.5-3.0) H Total Protein 7.6 g/dL (6.0-8.3) Albumin 3.1 g/dL (3.5-5.0) L Triglycerides Level 339 mg/dL (30-200) H Lipase 59 U/L (16-77) Procalcitonin 0.07 ng/mL (0.05-0.5) Thyroid Stimulating Hormone (TSH) 1.62 uIU/mL (0.36-3.74) Serum Test, Qualitative NEGATIVE (NEGATIVE) Test 10/29/24 20:33 10/29/24 21:16 10/29/24 23:06 10/30/24 01:00 Sodium Level 135 mmol/L (136-145) L Potassium Level 4.2 mmol/L (3.5-5.1) Chloride Level 99 mmol/L (101-111) L Carbon Dioxide Level 26 mmol/L (21-32) Blood Urea Nitrogen 27 mg/dL (7-18) H Creatinine 1.1 mg/dL (0.5-1.0) H Glomerular Filtration Rate Calc 72 mL/min (>90) Random Glucose 348 mg/dL (70-105) #H Total Calcium 8.6 mg/dL (8.5-10.1) Whole Blood Glucose 344 MG/DL (70-110) H 465 MG/DL (70-110) *H 213 MG/DL (70-110) #H Bedside Glucose Comment Notified Nurse Notified Nurse Test 10/30/24 03:06 10/30/24 05:08 10/30/24 05:30 10/30/24 06:18 Whole Blood Glucose 87 MG/DL (70-110) # 59 MG/DL (70-110) L 99 MG/DL (70-110) # Bedside Glucose Comment Notified Nurse White Blood Count 7.9 K/uL (4.8-10.8) Red Blood Count 3.96 MIL/uL (4.00-5.50) L Hemoglobin 12.0 g/dL (12.0-16.0) Hematocrit 36.8 % (36-48) Mean Corpuscular Volume 92.9 fL (79-99) Mean Corpuscular Hemoglobin 30.3 pg (27.0-33.0) Mean Corpuscular Hemoglobin Concent 32.6 g/dL (32.0-36.0) Red Cell Distribution Width 13.6 % (11.0-15.5) Platelet Count 408 K/uL (130-400) H Mean Platelet Volume 9.2 fL (7.5-10.5) Immature Granulocyte % (Auto) 0.3 % (0-1) Neutrophils (%) (Auto) 36.9 % (40.0-77.0) L Lymphocytes (%) (Auto) 46.4 % (21.0-51.0) Monocytes (%) (Auto) 11.6 % (3.0-13.0) Eosinophils (%) (Auto) 4.0 % (0.0-8.0) Basophils (%) (Auto) 0.8 % (0.0-5.0) Neutrophils # (Auto) 2.9 K/uL (1.8-7.7) Lymphocytes # (Auto) 3.7 K/uL (1.0-4.8) Monocytes # (Auto) 0.9 K/uL (0.1-1.0) Eosinophils # (Auto) 0.32 K/uL (0.00-0.70) Basophils # (Auto) 0.06 K/uL (0.00-0.20) Absolute Immature Granulocyte (auto 0.02 K/uL (0-1) Nucleated Red Blood Cells 0.0 % (0.0-0.19) Sodium Level 141 mmol/L (136-145) Potassium Level 3.4 mmol/L (3.5-5.1) L Chloride Level 106 mmol/L (101-111) Carbon Dioxide Level 26 mmol/L (21-32) Blood Urea Nitrogen 20 mg/dL (7-18) H Creatinine 0.7 mg/dL (0.5-1.0) Glomerular Filtration Rate Calc 123 mL/min (>90) Random Glucose 67 mg/dL (70-105) #L Total Calcium 8.8 mg/dL (8.5-10.1) Test 10/30/24 08:02 Whole Blood Glucose 167 MG/DL (70-110) #H Labs Reviewed?: Yes ED Course ED Course Orders Procedure Category Date Status Time Cbc With Differential LAB 10/29/24 Complete 10:52 Basic Metabolic Panel LAB 10/29/24 Complete 10:52 Urinalysis Profile LAB 10/29/24 Complete 10:52 ,Urine Test LAB 10/29/24 Complete 10:52 0.9%Nacl 1000ml (Ns PHA 10/29/24 Complete 1000ml) 10:52 Ondansetron 4mg Inj PHA 10/29/24 Complete (Zofran 4mg Inj) 10:52 Famotidine 20mg Vial PHA 10/29/24 Complete (Pepcid 20mg Vial) 10:52 Dicyclomine Hcl PHA 10/29/24 Complete (Bentyl 20mg Inj) 10:52 Dextrose 50%-Water PHA 10/29/24 Complete (D50w) 11:41 Bedside Glucose CPOE 10/29/24 Transmitted Fingerstick 13:30 Regular DIET 10/29/24 Complete Lunch Culture Urine LINDA 10/29/24 In Process 14:09 Dextrose 5 %-0.45 % PHA 10/29/24 In Process Nacl (D5 1/2ns) 15:30 Admit Orders ADM 10/29/24 Transmitted 15:09 Lipase LAB 10/29/24 Complete 15:11 Hepatic Function Panel LAB 10/29/24 Complete 15:11 Ketone Blood LAB 10/29/24 Complete Quantitative 15:15 Testing, LAB 10/29/24 Complete Serum Hcg 15:17 Vital Signs(Adult CPOE 10/29/24 Transmitted Hospitalist) 15:26 Nurse To Enter Home CPOE 10/29/24 Transmitted Medication 15:26 Admit Orders ADM 10/29/24 Transmitted 15:26 Telemetry Monitoring CPOE 10/29/24 Transmitted 15:26 Consistent Carb DIET 10/29/24 Transmitted Dinner Famotidine 20mg Vial PHA 10/29/24 In Process (Pepcid 20mg Vial) 21:00 Procalcitonin LAB 10/29/24 Complete 15:26 Hemoglobin A1c LAB 10/29/24 Complete 15:26 Initiate TALYA 10/29/24 In Process Hyperglycemia Protoco 15:26 Insulin Regular, PHA 10/29/24 In Process Human 3ml (Humulin R 18:00 *Nursing CPOE 10/29/24 Transmitted Communication: 15:26 Ceftriaxone 1g Vial PHA 10/29/24 In Process (Rocephine 1g Inj) 15:30 Glucometer Checks CPOE 10/29/24 Transmitted Q__Hr: 15:26 Crp Quantitative LAB 10/29/24 Complete 15:36 Triglycerides LAB 10/29/24 Complete 15:36 Thyroid Stimulating LAB 10/29/24 Complete Hormone 15:36 Critcal Care Consult CONPHYSVC 10/29/24 Transmitted 15:49 Ct Abdomen/Pelvis W/O CT 10/29/24 Resulted Contrast 16:03 Initiate Po TALYA 10/29/24 In Process Hypokalemia Protoc 16:30 Potassium Chloride PHA 10/29/24 In Process 20meq/100ml ([place] 16:30 Potassium Chl 10% PHA 10/29/24 In Process Elixir 20meq (Kcl 10% 16:30 Potassium Chloride PHA 10/29/24 In Process 20meq Er (K-Dur/Klor- 16:30 Notify Physician If CPOE 10/29/24 Transmitted There Is 16:30 Notify Md On The Next CPOE 10/29/24 Transmitted 16:30 Notify Md On The CPOE 10/29/24 Transmitted Next(Cont.) 16:30 Eval Request For DIETOTHR 10/29/24 Transmitted Dietitian 16:42 Initiate Hypoglycemia TALYA 10/29/24 In Process Protocol 20:08 Dextrose 50%-Water PHA 10/29/24 In Process (D50w) 20:30 Glucagon 1mg Kit PHA 10/29/24 In Process (Glucagon 1mg Kit) 20:30 Basic Metabolic Panel LAB 10/29/24 Complete 20:08 0.9%Nacl 1000ml (Ns PHA 10/29/24 In Process 1000ml) 20:30 Cbc With Differential LAB 10/30/24 Complete 05:15 Basic Metabolic Panel LAB 10/30/24 Complete 05:15 Metoclopramide 5 Mg PHA 10/30/24 In Process Tablet (Reglan 5 Mg 07:30 Current Medications Medications (Trade) Dose Ordered Sig/José Route PRN Reason Start Time Stop Time Status Last Admin Dose Admin Dextrose (D50w) 50 ml ONCE STAT IV 10/29/24 11:41 10/29/24 11:42 DC 10/29/24 12:04 Dicyclomine HCl (Bentyl 20mg Inj) 20 mg ONCE STAT IM 10/29/24 10:52 10/29/24 11:01 DC 10/29/24 12:04 Famotidine (Pepcid 20mg Vial) 20 mg ONCE STAT IV 10/29/24 10:52 10/29/24 11:01 DC 10/29/24 12:04 Ondansetron HCl (zoFRAN 4MG INJ) 4 mg ONCE STAT IVP 10/29/24 10:52 10/29/24 11:01 DC 10/29/24 12:05 Sodium Chloride 1,000 ml @ 1,000 mls/hr Q1H STAT IV 10/29/24 10:52 10/29/24 11:51 DC 10/29/24 12:04 Vital Signs Date Time Temp Pulse Resp B/P (MAP) Pulse Ox O2 Delivery O2 Flow Rate FiO2 10/30/24 03:02 97.5 85 16 111/72 96 Room Air 10/29/24 23:09 98.2 96 16 125/77 97 Room Air 10/29/24 20:10 98.1 107 16 117/68 94 Room Air 10/29/24 17:55 97.2 88 18 110/62 99 Room Air* 0 21 10/29/24 15:54 97.2 94 18 109/74 99 Room Air* 0 21 10/29/24 11:55 97.2 95 18 102/67 98 Room Air* 0 21 10/29/24 10:08 98.1 120 20 87/54 99 Room Air 0 Medical Decision Making MDM MDM: 24-year-old female coming in with complaints of feeling nauseated, decreased appetite and bloating for the last three days. Patient states she was recently here admitted for DKA and was discharged on cefdinir.CBC shows no leukocytosis, no anemia, thrombocythemia he is could be related to dehydration. Chemistry shows mild elevation of BUN and creatinine also couple related dehydration. Neurologically abnormality. Initial blood sugar was 79, shortly after was reassessed and it was 47, an amp of D50 was administered. Later blood sugar was 121, then reassessed after amp of D50 in regular diet in his 107. Patient will be admitted to continue monitoring of blood sugar. Spoke to Dr. Ta mchugh to admit. Differential diagnosis: DKA, hypoglycemia, gastroenteritis, medication side effects Rationale: Tests considered and ordered secondary to shared decision making include: labs, ECG and radiology Previous outside records reviewed: Old ER visits. Risk of complication and/or morbidity or mortality of patient management: None Medications-Per medication reconciliation Need for hospitalization: Patient does meet criteria for hospitalization. Need for emergency major/minor surgery: No There are no social concerns with this patient. Prescription drug management Prescriptions will include symptomatic care Patient's prior external medical records from other ER visits were reviewed by me as indicated. Prior testing and results from previous visits were reviewed. Prior tests were taken into account with medical decision making and resource utilization, independent historian/historians were used to obtain complete medical history. I independently interpreted the test that were performed, results were reviewed by me and considered findings on radiology if ordered. Medical management and examination interpretation discussions were had by me with other qualified healthcare professionals as indicated for the patient's care. DX & DISP Disposition: Inpatient Decision to Admit Date: Oct 29, 2024 Decision to Admit Time: 15:10 Departure Impression: Primary Impression: Hypoglycemia Condition: Stable Referrals: ESTELLE BLAKE M.D. (PCP) I have reviewed the case, and I agree with, Diagnosis and Plan ASHLIE WALDRON NP Oct 29, 2024 11:20 TUNG JIANG DO Oct 30, 2024 08:07
[2024-10-29 11:26] LABS: CREATININE 1.2 mg/dL (0.5-1.0)
[2024-10-29] MEDS: DICYCLOMINE 20MG (10MG/ML) AMP IM STA (12:04)
[2024-10-29] MEDS: 0.9%NACL 1000ML 1,000 ML IV STA (12:04)
[2024-10-29] MEDS: FAMOTIDINE 20MG VIAL IV STA (12:04)
[2024-10-29] MEDS: DEXTROSE 50%-WATER 50 ML DISP.SYRIN IV STA (12:04)
[2024-10-29] MEDS: ondanSETRON 4MG INJ IVP STA (12:05)
[2024-10-29 13:46] LABS: APPEARANCE,URINE CLEAR (CLEAR); BILIRUBIN,URINE 0.5 mg/dL (NEGATIVE); COLOR,URINE LIGHT-YELLOW (YELLOW); GLUCOSE, URINE (UA) >=1000 mg/dL (NEGATIVE); KETONES,URINE >=80 mg/dL (NEGATIVE); LEUKOCYTE ESTERASE ,URINE NEGATIVE Leu/uL (NEGATIVE); NITRATE,URINE NEGATIVE (NEGATIVE); OCCULT BLOOD,URINE NEGATIVE (NEGATIVE); PROTEIN,URINE 10 mg/dL (NEGATIVE)
[2024-10-29 13:48] LABS: ADD UA MICROSCOPIC YES
[2024-10-29 13:53] LABS: HCG,QUALITATIVE URINE NEGATIVE (NEGATIVE)
[2024-10-29 14:05] LABS: MUCUS,URINE RARE LPF (None Seen); RBC,URINE 0-1 /HPF (0-1); SQUAMOUS EPITHELIAL CELL,UR FEW /HPF (0-2)
[2024-10-29] MEDS: DEXTROSE 5 %-0.45 % NACL 1,000 ML IV SCH (15:33)
--- NOTE | 2024-10-29 15:37 | HP ---
[facility] HISTORY [facility] PHYSICAL Date of Service: Oct 29, 2024 Time of Service: 15:37 HISTORY OF PRESENT ILLNESS: 24-year-old female with past medical history of diabetes mellitus type one who presented to the hospital secondary to nausea, vomiting, epigastric. Patient states since yesterday she has noted episodes of nausea, vomiting and pain in the epigastric area. Pain does not radiate. She describes the pain as sharp in nature. She has had associated vomiting. She feels after she eats she gets bloated. She states her food stays in her stomach for longer duration. She was recently hospitalized in [facility] [place] and was discharged on October 24. She is currently on Nxxfbv12 units daily and Humalog which she takes with meals. She did take her Lantus in the morning today. She did not eat very well in the morning. She denied any changes in her bowel movements. Denied any constipation diarrhea, melena, hematochezia, hematemesis. Denied any changes in her urination. Denied any dysuria. Denied any chest pain, shortness of breath, falls, syncopal episode. She sees Dr. Lamb as outpatient who has been adjusting her insulin. He is going to be approved for insulin pump. Labs were notable for white count of 10.1, hemoglobin was 14.0, platelet count was 533 K, sodium was 133, potassium was 4.0, creatinine was 1.2, BUN was 32, calcium was 10.4 Patient's blood glucose on presentation was 79 which dropped to 47. She was given D50 once. Which increased her blood glucose to 121 and thereafter it was 107. She was started on D5 NS due to concern for hypoglycemia. Imaging was done in the ED. UA was negative for REVIEW OF SYSTEMS CONSTITUTIONAL: Denies fevers, chills, or night sweats. No unintentional weight loss reported. NEUROLOGICAL: Denies headache, amaurosis fugax, motor weakness, sensory deficit, vertigo/spinning sensation, gait abnormalities, or tremors. ENT: No hearing loss, otalgia, otorrhea, rhinitis, rhinorrhea, hoarseness, or sore throat. CARDIOVASCULAR: Denies any exertional angina, dyspnea on exertion, orthopnea, paroxysmal nocturnal dyspnea, palpitations, life-threatening arrhythmias, claudication. PULMONARY: Denies any shortness of breath, cough, phlegm/sputum, hemoptysis, pleuritic chest pain. SLEEP: Denies morning headaches, daytime somnolence or napping. Denies difficulty falling asleep, staying asleep, waking from sleep. Denies knowledge of snoring. GASTROINTESTINAL: Positive for abdominal pain, nausea, vomiting. Denied any diarrhea, constipation, melena, GENITOURINARY: Denies frequency, urgency, nocturia, hematuria or incontinence (Storage/Irritative symptoms.) Low urinary stream, straining to void, urinary intermittency or hesitancy, splitting of the voiding stream, terminal dribbling. ENDOCRINOLOGIC: Denies polyuria, polydipsia, polyphagia or heat/cold intolerances. HEMATOLOGIC: Denies thrombophilia/previous clots, or coagulopathy/bleeding disorders. ONCOLOGIC: Denies personal history of malignancy. DERMATOLOGIC: Denies rashes or pruritus. PSYCHIATRIC: Denies any suicidal or homicidal ideation. Denies hallucinations. PAST MEDICAL HISTORY: Diabetes mellitus type 1, history of DKA PAST SURGICAL HISTORY: Denied any previous surgical history PAST SOCIAL HISTORY: Denied any smoking, alcohol, drug use FAMILY HISTORY: Denied any pertinent family history Coded Allergies: levofloxacin (Unverified Allergy, Unknown, 12/19/23) PHYSICAL EXAM GENERAL APPEARANCE: The patient is awake, alert, and oriented, in no acute cardiopulmonary distress. NEUROLOGICAL: Cranial nerves II-XII grossly intact. Motor is 5/5 in bilateral upper and lower extremities proximal to distal. No sensory deficits. HEENT: Face is symmetric. Pupils are equal and reactive. Extraocular movements are intact. NECK: Supple. No JVD. No thyromegaly. No submental, submandibular, pre- /postauricular, occipital or supraclavicular lymphadenopathy. CHEST: Normal chest expansion. No Telemetry. LUNGS: Absence of any rales, rhonchi or any wheezing. CARDIOVASCULAR: Regular. S1 and S2 normal. No appreciable rubs, murmurs or gallops. ABDOMEN: Soft, nontender, and nondistended. There is no rebound, voluntary guarding, or rigidity. : Deferred. No Chinchilla. EXTREMITIES: Non-edematous and not cyanotic. No clubbing. Good capillary refill. SKIN: No skin breakdown. Vital Sign (Last 24 Hours) 10/29/24 11:55 Temp 97.2 Pulse 95 Resp 18 B/P (MAP) 102/67 Pulse Ox 98 O2 Delivery Room Air* O2 Flow Rate 0 FiO2 21 LABS: Laboratory: Test 10/29/24 14:55 10/29/24 13:22 10/29/24 11:05 Range/Units Whole Blood Glucose 107 70-110 MG/DL Urine Color LIGHT-YELLOW YELLOW Urine Appearance CLEAR CLEAR Urine pH 5.0 5.0-8.0 Urine Specific [place] 1.021 1.001-1.031 Urine Protein 10 H NEGATIVE mg/dL Urine Glucose (UA) >=1000 H NEGATIVE mg/dL Urine Ketones >=80 NEGATIVE mg/dL Urine Occult Blood NEGATIVE NEGATIVE Urine Nitrate NEGATIVE NEGATIVE Urine Bilirubin 0.5 H NEGATIVE mg/dL Urine Urobilinogen 2.0 H 0.2-1.0 mg/dL Urine Leukocyte Esterase NEGATIVE NEGATIVE Otf/uL Urine RBC 0-1 0-1 /HPF Urine WBC 6-10 H 0-1 /HPF Urine Squamous Epithelial Cells FEW 0-2 /HPF Urine Bacteria None None Seen /HPF Urine Hyaline Casts 11-25 H 0-1 /LPF /LPF Urine HCG, Qualitative NEGATIVE NEGATIVE White Blood Count 10.1 4.8-10.8 K/uL Red Blood Count 4.57 4.00-5.50 MIL/uL Hemoglobin 14.0 12.0-16.0 g/dL Hematocrit 41.0 36-48 % Mean Corpuscular Volume 89.7 79-99 fL Mean Corpuscular Hemoglobin 30.6 27.0-33.0 pg Mean Corpuscular Hemoglobin Concent 34.1 32.0-36.0 g/dL Red Cell Distribution Width 13.8 11.0-15.5 % Platelet Count 533 H 130-400 K/uL Mean Platelet Volume 9.1 7.5-10.5 fL Immature Granulocyte % (Auto) 0.4 0-1 % Neutrophils (%) (Auto) 60.1 40.0-77.0 % Lymphocytes (%) (Auto) 30.8 21.0-51.0 % Monocytes (%) (Auto) 7.3 3.0-13.0 % Eosinophils (%) (Auto) 0.8 0.0-8.0 % Basophils (%) (Auto) 0.6 0.0-5.0 % Neutrophils # (Auto) 6.1 1.8-7.7 K/uL Lymphocytes # (Auto) 3.1 1.0-4.8 K/uL Monocytes # (Auto) 0.7 0.1-1.0 K/uL Eosinophils # (Auto) 0.08 0.00-0.70 K/uL Basophils # (Auto) 0.06 0.00-0.20 K/uL Absolute Immature Granulocyte (auto 0.04 0-1 K/uL Nucleated Red Blood Cells 0.0 0.0-0.19 % Sodium Level 143 136-145 mmol/L Potassium Level 4.0 3.5-5.1 mmol/L Chloride Level 102 101-111 mmol/L Carbon Dioxide Level 29 21-32 mmol/L Blood Urea Nitrogen 32 H 7-18 mg/dL Creatinine 1.2 H 0.5-1.0 mg/dL Glomerular Filtration Rate Calc 64 >90 mL/min Random Glucose 63 L 70-105 mg/dL Total Calcium 10.4 H 8.5-10.1 mg/dL Current Medications Medications (Trade) Dose Ordered Sig/José Route PRN Reason Start Time Stop Time Status Last Admin Dose Admin Ceftriaxone Sodium (ROCEphine 1G INJ) 1 gm Q24H IVPB 10/29/24 15:30 11/08/24 15:29 Dextrose (D50w) 50 ml ONCE STAT IV 10/29/24 11:41 10/29/24 11:42 DC 10/29/24 12:04 50 ML Dextrose/Sodium Chloride 1,000 ml @ 125 mls/hr Q8H IV 10/29/24 15:30 11/28/24 15:29 10/29/24 15:33 125 MLS/HR Dicyclomine HCl (Bentyl 20mg Inj) 20 mg ONCE STAT IM 10/29/24 10:52 10/29/24 11:01 DC 10/29/24 12:04 20 MG Famotidine (Pepcid 20mg Vial) 20 mg BID IV 10/29/24 21:00 11/28/24 20:59 Famotidine (Pepcid 20mg Vial) 20 mg ONCE STAT IV 10/29/24 10:52 10/29/24 11:01 DC 10/29/24 12:04 20 MG Insulin Human Regular (humuLIN R 100 UNIT/ML 3ML) INSULIN SLIDING SCAL... Q6H6 SQ 10/29/24 18:00 11/28/24 17:59 Ondansetron HCl (zoFRAN 4MG INJ) 4 mg ONCE STAT IVP 10/29/24 10:52 10/29/24 11:01 DC 10/29/24 12:05 4 MG Sodium Chloride 1,000 ml @ 1,000 mls/hr Q1H STAT IV 10/29/24 10:52 10/29/24 11:51 DC 10/29/24 12:04 1,000 MLS/HR DIAGNOSTICS / RADIOLOGY: [ ] ASSESSMENT: Hypoglycemia POA Diabetes mellitus type 1 History of recurrent DKA Suspected diabetic gastroparesis PLAN: - patient to be admitted to PCCU -in reference to hypoglycemia. We will continue on D5 NS. Once patient is able to tolerate p.o. and sugars remained stable we will discontinue D5 NS. The patient to be started on sliding scale insulin. Obtain a glucometer check Q 1-2 hours. -obtain a CT abdomen pelvis to rule out other GI etiology -we will consider starting Reglan with meals due to concern for diabetic gastroparesis -further orders per hospitalization course -obtain nutrition consult Advanced Care Planning Which of the following were discussed: Hospice care: Yes __ No _x_ Therapeutic options: Yes __ No __ Advance directives: Yes __ No __ Other discussions: Pt is full code Discussed with who?: patient (Patient, family or surrogates) Voluntary nature of this service was explained to the patient? Yes _x_ No __ Amount of time spent: 25 minutes ANA Paz MD Oct 29, 2024 15:37
[2024-10-29] MEDS: cefTRIAXone 1G VIAL IVPB SCH (15:51)
[2024-10-29 15:55] LABS: HEMOGLOBIN A1C 11.8 % (4.0-6.0)
--- NOTE | 2024-10-29 16:02 | NUR ---
NURSE WESLEY NOT READY FOR REPORT
[2024-10-29 16:22] LABS: ALBUMIN 3.1 g/dL (3.5-5.0); BILIRUBIN,DIRECT 0.1 mg/dL (0.0-0.3); BILIRUBIN,TOTAL 0.2 mg/dL (0.2-1.0); THYROID STIMULATING HORMONE 1.62 uIU/mL (0.36-3.74); TOTAL PROTEIN, SERUM 7.6 g/dL (6.0-8.3)
[2024-10-29] MEDS ORDERED: PoTASSium chloRIDE 20MEQ/100ML 100 ML IV PRN (16:30)
[2024-10-29] MEDS ORDERED: PoTASSium chl 10% ELIXIR 20MEQ 20 MEQ/15 ML UDCUP PO PRN (16:30)
--- NOTE | 2024-10-29 17:07 | HMCIMG ---
CT ABDOMEN/PELVIS W/O CONTRAST HISTORY: Epigastric pain COMPARISON: 12/18/2023 TECHNIQUE: Multiple sequential axial images of the abdomen and pelvis were obtained from the dome of the diaphragm through symphysis pubis. Patient was not given contrast through intravenous route. Oral contrast was not given. FINDINGS: No pleural effusion is seen bilaterally. There is no evidence of parenchymal disease or pulmonary nodule of the visualized lower lungs. Degenerative changes of the thoracolumbar spine are present. The heart is not enlarged. Liver measured 21 cm. The liver, spleen, adrenal glands and pancreas are unremarkable. There is no evidence of hydronephrosis bilaterally. No evidence of renal stone is seen. Fecal material is seen in the colon. There are normal size retroperitoneal and mesenteric lymph nodes. No ascites is seen. Appendix is not well-seen limiting evaluation. No definite CT evidence of acute appendicitis is seen. Pelvic sidewalls are symmetric bilaterally. Bladder is well distended without wall thickening. IMPRESSION: 1. Fecal material is seen in the colon. CT was performed with one or more following dose reduction techniques: automated exposure control, adjustment of the mA and kv according to patient's size, or use of a iterative reconstruction technique.
[2024-10-29] MEDS: INSULIN humuLIN R 100 UNIT/ML 3ML SQ SCH (17:50)
--- NOTE | 2024-10-29 18:18 | NUR ---
PER DR ZELAYA GIVE ONLY 3 OF 5 UNITS OF INSULIN
--- NOTE | 2024-10-29 18:35 | NUR ---
REPORT GIVEN TO CHARGE NURSE GA HENRY TO BE TAKEN UP AT 1900
--- NOTE | 2024-10-29 19:50 | NUR ---
PT ARRIVED TO 228 VIA STRETCHER FROM ER. PT AMBULATED TO BED, TOLERATED WELL. EDUCATED PT IN USE OF CALL LIGHT AND TO NOT GET OUT OF BED BY SELF, VERBALIZED UNDERSTANDING. LEFT BED LOW, LOCKED, RAILS UPX2, AND WITH CALL LIGHT IN REACH.
[2024-10-29 20:00] VITALS: O2SAT 96
[2024-10-29 20:10] VITALS: BP 117/68; PULSE 107; RESP 16; TEMP 98.1
[2024-10-29] MEDS ORDERED: DEXTROSE 50%-WATER 50 ML DISP.SYRIN IV PRN (20:30)
[2024-10-29] MEDS ORDERED: GLUCAGON 1MG KIT 1 MG ML IM PRN (20:30)
[2024-10-29] MEDS: FAMOTIDINE 20MG VIAL IV SCH (20:44)
[2024-10-29 20:52] LABS: CREATININE 1.1 mg/dL (0.5-1.0); POTASSIUM 4.2 mmol/L (3.5-5.1)
[2024-10-29] MEDS: 0.9%NACL 1000ML 1,000 ML IV SCH (20:53)
[2024-10-29 23:09] VITALS: BP 125/77; PULSE 96; RESP 16; TEMP 98.2
[2024-10-30] VITALS (8 sets, daily range): BP systolic 111–130; BP diastolic 72–82; PULSE 85–106; RESP 16–18; TEMP 97.5–98.3; O2SAT 97–98
[2024-10-30 05:39] LABS: BASOPHILS # (AUTO) 0.06 K/uL (0.00-0.20); BASOPHILS % (AUTO) 0.8 % (0.0-5.0); EOSINOPHILS # (AUTO) 0.32 K/uL (0.00-0.70); HEMATOCRIT 36.8 % (36-48); IMMATURE GRANULOCYTE ABSOLUTE 0.02 K/uL (0-1); LYMPHOCYTES # (AUTO) 3.7 K/uL (1.0-4.8); LYMPHOCYTES % (AUTO) 46.4 % (21.0-51.0); MEAN CORPUSCULAR HEMOGLOBIN 30.3 pg (27.0-33.0); MEAN CORPUSCULAR HGB CONC 32.6 g/dL (32.0-36.0); MEAN CORPUSCULAR VOLUME 92.9 fL (79-99); MONOCYTES # (AUTO) 0.9 K/uL (0.1-1.0); MONOCYTES % (AUTO) 11.6 % (3.0-13.0); NEUTROPHILS # (AUTO) 2.9 K/uL (1.8-7.7); NEUTROPHILS % (AUTO) 36.9 % (40.0-77.0); PLATELET COUNT (AUTO) 408 K/uL (130-400); RED BLOOD CELL COUNT(AUTO) 3.96 MIL/uL (4.00-5.50); RED CELL DISTRIBUTION WIDTH 13.6 % (11.0-15.5); WHITE BLOOD COUNT (AUTO) 7.9 K/uL (4.8-10.8)
[2024-10-30 05:56] LABS: CREATININE 0.7 mg/dL (0.5-1.0); POTASSIUM 3.4 mmol/L (3.5-5.1)
[2024-10-30] MEDS: metoCLOPRAmide 5 MG TABLET PO SCH (06:29)
--- NOTE | 2024-10-30 09:18 | CONS ---
[facility] CONSULTATION NOTE Date Patient Seen: Oct 30, 2024 Time of Visit: 09:18 Supervising Physician: [ ] Dr. Lane AARON Reason for Consultation: [ ] PROBLEM LIST: Hypoglycemia POA Diabetes mellitus type 1 History of recurrent DKA Suspected diabetic gastroparesis HPI: Patient is a 24-year-old female with a past medical history significant for diabetes with a past episodes of DKA who was admitted by primary team following an episode of hypoglycemia at home as well as an episode of epigastric pain associated with nausea and vomiting. Patient's diabetic medications has been adjusted by outpatient PCP, she does endorse that she did not eat breakfast yesterday in his currently being evaluated for insulin pump per chart review. Critical care team was asked to keep the patient under observation at primaries request. Patient's white count today is 7.9, hemoglobin is 12.0. Patient's glucose as this morning has trended up from 99 at approximately 6:00 a.m. to 398 at 9:00 a.m.. Patient has spiked to 512 at approximately 11:30 a.m. this morning and at the time of charting most recent blood glucose level is 329 after administration of 8 units regular insulin. Patient has been restarted on her Lantus and regular insulin sliding scale. Gastric emptying study has been ordered on the patient to evaluate for possible gastroparesis. PAST MEDICAL HX: see above PAST SURGICAL HX: noncontributory SOCIAL HISTORY: No tobacco, ETOH, or illicit drug use Coded Allergies: levofloxacin (Unverified Allergy, Unknown, 12/19/23) REVIEW OF SYSTEMS: 12 point ROS reviewed with patient. Pertinent positives mentioned above. Otherwise negative. PHYSICAL EXAM: GENERAL: alert, weak, awake oriented x 3 HEENT: EOMI, Sclera non icteric, moist mucosa NECK: Supple, no JVD, trachea midline LUNGS: Clear breath sounds bilaterally. No wheezes HEART: Regular rate and rhythm. Normal S1 and S2, without murmurs ABD: Abdomen soft, nontender. Bowel sounds present EXT: No clubbing cyanosis or edema NEURO: Alert and oriented to person, follows commands Vital Signs (last 8hr) Date Time Temp Pulse Resp B/P (MAP) Pulse Ox O2 Delivery O2 Flow Rate FiO2 10/30/24 07:00 98.2 103 17 112/72 100 Room Air 10/30/24 03:02 97.5 85 16 111/72 96 Room Air LABS: Hematology Labs: Test 10/30/24 05:30 Range/Units White Blood Count 7.9 4.8-10.8 K/uL Red Blood Count 3.96 L 4.00-5.50 MIL/uL Hemoglobin 12.0 12.0-16.0 g/dL Hematocrit 36.8 36-48 % Mean Corpuscular Volume 92.9 79-99 fL Mean Corpuscular Hemoglobin 30.3 27.0-33.0 pg Mean Corpuscular Hemoglobin Concent 32.6 32.0-36.0 g/dL Red Cell Distribution Width 13.6 11.0-15.5 % Platelet Count 408 H 130-400 K/uL Mean Platelet Volume 9.2 7.5-10.5 fL Immature Granulocyte % (Auto) 0.3 0-1 % Neutrophils (%) (Auto) 36.9 L 40.0-77.0 % Lymphocytes (%) (Auto) 46.4 21.0-51.0 % Monocytes (%) (Auto) 11.6 3.0-13.0 % Eosinophils (%) (Auto) 4.0 0.0-8.0 % Basophils (%) (Auto) 0.8 0.0-5.0 % Neutrophils # (Auto) 2.9 1.8-7.7 K/uL Lymphocytes # (Auto) 3.7 1.0-4.8 K/uL Monocytes # (Auto) 0.9 0.1-1.0 K/uL Eosinophils # (Auto) 0.32 0.00-0.70 K/uL Basophils # (Auto) 0.06 0.00-0.20 K/uL Absolute Immature Granulocyte (auto 0.02 0-1 K/uL Nucleated Red Blood Cells 0.0 0.0-0.19 % Chemistry Labs: Test 10/30/24 09:10 10/30/24 05:30 10/30/24 05:08 10/29/24 15:36 Range/Units Whole Blood Glucose 398 #H 70-110 MG/DL Sodium Level 141 136-145 mmol/L Potassium Level 3.4 L 3.5-5.1 mmol/L Chloride Level 106 101-111 mmol/L Carbon Dioxide Level 26 21-32 mmol/L Blood Urea Nitrogen 20 H 7-18 mg/dL Creatinine 0.7 0.5-1.0 mg/dL Glomerular Filtration Rate Calc 123 >90 mL/min Random Glucose 67 #L 70-105 mg/dL Total Calcium 8.8 8.5-10.1 mg/dL Bedside Glucose Comment Notified Nurse Hemoglobin A1c 11.8 H 4.0-6.0 % Estimated Average Glucose (eAG) 292 H 70-126 mg/dL Whole Blood Ketones Quantitative 0.7 H 0.0-0.6 mmol/L Total Bilirubin 0.2 0.2-1.0 mg/dL Direct Bilirubin 0.1 0.0-0.3 mg/dL Aspartate Amino Transf (AST/SGOT) 16 10-37 U/L Alanine Aminotransferase (ALT/SGPT) 32 12-78 U/L Alkaline Phosphatase 99 50-136 U/L C-Reactive Protein, Quantitative 15.60 H 0.5-3.0 mg/L Total Protein 7.6 6.0-8.3 g/dL Albumin 3.1 L 3.5-5.0 g/dL Triglycerides Level 339 H 30-200 mg/dL Lipase 59 16-77 U/L Procalcitonin 0.07 0.05-0.5 ng/mL Thyroid Stimulating Hormone (TSH) 1.62 0.36-3.74 uIU/mL Serum Test, Qualitative NEGATIVE NEGATIVE DIAGNOSTICS / RADIOLOGY RESULTS: [ ] PLAN NEURO: Minimize central acting medications as possible. Maintain fall precautions, adequate lighting during the day PULMONARY: Supplemental 02 as needed. Maintain aspiration precautions at all times CARDIOVASCULAR: Follow hemodynamics. Vital signs per facility protocol GI & NUTRITION: Continue with nutritional support. Continue stool softeners and laxatives as needed. KIDNEYS & ELECTROLYTES: Strict monitoring of intake, output and overall fluid balance. Avoid nephrotoxic medications to the extent possible. Medications to be dosed according to renal function. Monitor electrolytes and replace as needed ENDOCRINE: Maintain blood glucose between 100-180 at all times. Hypoglycemia protocol in place INFECTIOUS DISEASE: Trend temperature, WBC and procalcitonin level Follow cultures, deescalate antibiotics as soon as possible. Panculture if new onset fever ONCOLOGY/HEMATOLOGY/COAGULATION: Monitor for s/s of bleeding Monitor hemoglobin, coagulation studies as needed SKIN: Pressure ulcer prevention per facility protocol Specialty mattress ORTHO/REHAB: Continue PT/OT Prophylaxis: Continue GI and DVT prophylaxis Code Status: Full Resuscitation Disposition: TBD Other: Total patient care time exceeds 35 minutes excluding all procedures. IVETH CHURCHILL Oct 30, 2024 09:18
[2024-10-30] MEDS: PoTASSium chloRIDE 20MEQ ER 20 MEQ ERTAB PO PRN (11:47)
--- NOTE | 2024-10-30 14:17 | PN ---
[facility] PROGRESS NOTE Date of Service: Oct 30, 2024 Time of Service: 14:11 SUBJECTIVE: 10/30 No acute events overnight. Blood sugars improving, nausea/vomiting resolved. Patient was given reglan, which will be held. Gastric emptying study has been ordered to be done on Friday 48 hours after last dose of reglan to assess for gastroparesis. REVIEW OF SYSTEMS 12 point ROS negative unless noted in HPI PHYSICAL EXAM GENERAL APPEARANCE: The patient is awake, alert, and oriented, in no acute cardiopulmonary distress. NEUROLOGICAL: Cranial nerves II-XII grossly intact. Motor is 5/5 in bilateral upper and lower extremities proximal to distal. No sensory deficits. HEENT: Face is symmetric. Pupils are equal and reactive. Extraocular movements are intact. NECK: Supple. No JVD. No thyromegaly. No submental, submandibular, pre- /postauricular, occipital or supraclavicular lymphadenopathy. CHEST: Normal chest expansion. No Telemetry. LUNGS: Absence of any rales, rhonchi or any wheezing. CARDIOVASCULAR: Regular. S1 and S2 normal. No appreciable rubs, murmurs or gallops. ABDOMEN: Soft, nontender, and nondistended. There is no rebound, voluntary guarding, or rigidity. : Deferred. No Chinchilla. EXTREMITIES: Non-edematous and not cyanotic. No clubbing. Good capillary refill. SKIN: No skin breakdown. Vital Signs (last 8hr) Date Time Temp Pulse Resp B/P (MAP) Pulse Ox O2 Delivery O2 Flow Rate FiO2 10/30/24 11:00 98.2 96 18 123/79 97 Room Air 10/30/24 08:00 98 Room Air* 0 21 10/30/24 07:00 98.2 103 17 112/72 100 Room Air LABS: Laboratory: Test 10/30/24 13:19 10/30/24 11:38 10/30/24 05:30 10/29/24 15:36 Range/Units Whole Blood Glucose 329 H 70-110 MG/DL Bedside Glucose Comment Notified Nurse White Blood Count 7.9 4.8-10.8 K/uL Red Blood Count 3.96 L 4.00-5.50 MIL/uL Hemoglobin 12.0 12.0-16.0 g/dL Hematocrit 36.8 36-48 % Mean Corpuscular Volume 92.9 79-99 fL Mean Corpuscular Hemoglobin 30.3 27.0-33.0 pg Mean Corpuscular Hemoglobin Concent 32.6 32.0-36.0 g/dL Red Cell Distribution Width 13.6 11.0-15.5 % Platelet Count 408 H 130-400 K/uL Mean Platelet Volume 9.2 7.5-10.5 fL Immature Granulocyte % (Auto) 0.3 0-1 % Neutrophils (%) (Auto) 36.9 L 40.0-77.0 % Lymphocytes (%) (Auto) 46.4 21.0-51.0 % Monocytes (%) (Auto) 11.6 3.0-13.0 % Eosinophils (%) (Auto) 4.0 0.0-8.0 % Basophils (%) (Auto) 0.8 0.0-5.0 % Neutrophils # (Auto) 2.9 1.8-7.7 K/uL Lymphocytes # (Auto) 3.7 1.0-4.8 K/uL Monocytes # (Auto) 0.9 0.1-1.0 K/uL Eosinophils # (Auto) 0.32 0.00-0.70 K/uL Basophils # (Auto) 0.06 0.00-0.20 K/uL Absolute Immature Granulocyte (auto 0.02 0-1 K/uL Nucleated Red Blood Cells 0.0 0.0-0.19 % Sodium Level 141 136-145 mmol/L Potassium Level 3.4 L 3.5-5.1 mmol/L Chloride Level 106 101-111 mmol/L Carbon Dioxide Level 26 21-32 mmol/L Blood Urea Nitrogen 20 H 7-18 mg/dL Creatinine 0.7 0.5-1.0 mg/dL Glomerular Filtration Rate Calc 123 >90 mL/min Random Glucose 67 #L 70-105 mg/dL Total Calcium 8.8 8.5-10.1 mg/dL Hemoglobin A1c 11.8 H 4.0-6.0 % Estimated Average Glucose (eAG) 292 H 70-126 mg/dL Whole Blood Ketones Quantitative 0.7 H 0.0-0.6 mmol/L Total Bilirubin 0.2 0.2-1.0 mg/dL Direct Bilirubin 0.1 0.0-0.3 mg/dL Aspartate Amino Transf (AST/SGOT) 16 10-37 U/L Alanine Aminotransferase (ALT/SGPT) 32 12-78 U/L Alkaline Phosphatase 99 50-136 U/L C-Reactive Protein, Quantitative 15.60 H 0.5-3.0 mg/L Total Protein 7.6 6.0-8.3 g/dL Albumin 3.1 L 3.5-5.0 g/dL Triglycerides Level 339 H 30-200 mg/dL Lipase 59 16-77 U/L Procalcitonin 0.07 0.05-0.5 ng/mL Thyroid Stimulating Hormone (TSH) 1.62 0.36-3.74 uIU/mL Serum Test, Qualitative NEGATIVE NEGATIVE Test 10/29/24 13:22 Range/Units Urine Color LIGHT-YELLOW YELLOW Urine Appearance CLEAR CLEAR Urine pH 5.0 5.0-8.0 Urine Specific [place] 1.021 1.001-1.031 Urine Protein 10 H NEGATIVE mg/dL Urine Glucose (UA) >=1000 H NEGATIVE mg/dL Urine Ketones >=80 NEGATIVE mg/dL Urine Occult Blood NEGATIVE NEGATIVE Urine Nitrate NEGATIVE NEGATIVE Urine Bilirubin 0.5 H NEGATIVE mg/dL Urine Urobilinogen 2.0 H 0.2-1.0 mg/dL Urine Leukocyte Esterase NEGATIVE NEGATIVE Otf/uL Urine RBC 0-1 0-1 /HPF Urine WBC 6-10 H 0-1 /HPF Urine Squamous Epithelial Cells FEW 0-2 /HPF Urine Bacteria None None Seen /HPF Urine Hyaline Casts 11-25 H 0-1 /LPF /LPF Urine HCG, Qualitative NEGATIVE NEGATIVE Current Medications Medications (Trade) Dose Ordered Sig/José Route PRN Reason Start Time Stop Time Status Last Admin Dose Admin Ceftriaxone Sodium (ROCEphine 1G INJ) 1 gm Q24H IVPB 10/29/24 15:30 11/08/24 15:29 10/29/24 15:51 1 GM Dextrose (D50w) 50 ml AD PRN IV HYPOGLYCEMIA PROTOCOL 10/29/24 20:30 11/28/24 20:29 Dextrose (D50w) 50 ml ONCE STAT IV 10/29/24 11:41 10/29/24 11:42 DC 10/29/24 12:04 50 ML Dextrose/Sodium Chloride 1,000 ml @ 75 mls/hr [id number] IV 10/29/24 15:30 11/28/24 15:29 Hold 10/29/24 15:33 125 MLS/HR Dicyclomine HCl (Bentyl 20mg Inj) 20 mg ONCE STAT IM 10/29/24 10:52 10/29/24 11:01 DC 10/29/24 12:04 20 MG Famotidine (Pepcid 20mg Vial) 20 mg BID IV 10/29/24 21:00 11/28/24 20:59 10/30/24 09:06 20 MG Famotidine (Pepcid 20mg Vial) 20 mg ONCE STAT IV 10/29/24 10:52 10/29/24 11:01 DC 10/29/24 12:04 20 MG Glucagon (Glucagon 1mg Kit) 1 mg AD PRN IM HYPOGLYCEMIA PROTOCOL 10/29/24 20:30 11/28/24 20:29 Insulin Glargine (LANtus 100 UNITS/ML 10 ML VIAL) 15 units HS SQ 10/30/24 21:00 11/29/24 20:59 Insulin Human Regular (humuLIN R 100 UNIT/ML 3ML) INSULIN SLIDING SCAL... ACHS SQ 10/30/24 16:30 11/29/24 16:29 Insulin Human Regular (humuLIN R 100 UNIT/ML 3ML) INSULIN SLIDING SCAL... Q6H6 SQ 10/29/24 18:00 10/30/24 12:05 DC 10/30/24 11:46 8 UNIT Metoclopramide HCl (regLAN 5 MG TAB) 5 mg ACHS PO 10/30/24 07:30 10/30/24 09:19 DC 10/30/24 06:29 5 MG Ondansetron HCl (zoFRAN 4MG INJ) 4 mg ONCE STAT IVP 10/29/24 10:52 10/29/24 11:01 DC 10/29/24 12:05 4 MG Potassium Chloride 100 ml @ 100 mls/hr AD PRN IV POTASSIUM PROTOCOL 10/29/24 16:30 11/28/24 16:29 Potassium Chloride (K-Dur/Klor-Con 20meq) 20 meq AD PRN PO POTASSIUM PROTOCOL 10/29/24 16:30 11/28/24 16:29 10/30/24 11:47 20 MEQ Potassium Chloride (KCl 10% Elixir 20meq/15ml) 20 meq AD PRN PO POTASSIUM PROTOCOL 10/29/24 16:30 11/28/24 16:29 Sodium Chloride 1,000 ml @ 100 mls/hr Q10H IV 10/29/24 20:30 11/28/24 20:29 10/30/24 06:28 100 MLS/HR Sodium Chloride 1,000 ml @ 1,000 mls/hr Q1H STAT IV 10/29/24 10:52 10/29/24 11:51 DC 10/29/24 12:04 1,000 MLS/HR DIAGNOSTICS / RADIOLOGY: [ ] ASSESSMENT: Hypoglycemia POA Diabetes mellitus type 1 last A1C 11.8 History of recurrent DKA Suspected diabetic gastroparesis PLAN: - patient to be admitted to PCCU - resume sliding scale insulin - Start glargine 15U HS - Continue hypoglycemia protocol - Hold reglan - Gastric emptying study ordered for Friday Disposition: Pending gastric emptying study YELENA RUVALCABA MD Oct 30, 2024 14:17
--- NOTE | 2024-10-30 16:51 | NUR ---
Nutrition consult per education Reviewed labs, notes, and medications. Pt with T1DM, last admin 10/20/24, N/V POA, pending gastric emptying study 11/01/24, on 75 gm cho, IV fluids, BG 329 (H), A1C 11.8, K 3.4(L), elevated BUN 20, Cr WNL, elevated CRP per chart review. Wt via standing scale, 100%PO intake, last BM 10/29/24, no edema, well nourished, no ulcers per nursing. Per research low vitamin D may contribute to insulin resistance . Recommendations: -Provide 60 gm cho -Monitor PO intake -Encourage PO intake as able -Monitor BM -If no BM >3 days consider stool softener -Monitor electrolytes -Replenish electrolytes per protocol -Monitor wts -Reweigh as able -Order Vit D, vit b-12 labs to rule out deficiencies -Provide MVI QD -Recommend Pt to follow up with PCP -Monitor goals of care RD to follow + available for consult per protocol Addendum: 10/30/24 at [address] Amended: Links added.
--- NOTE | 2024-10-30 17:00 | NUR ---
INITIAL/DCP HOME Met w pt this afternoon to discuss dcp. EC mother Padmini Philip [phone]. Demographics confirmed. Pt lives w her mother. She is independent w ambulation and ADLs. 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 Her preferred pharmacy is [facility]. Pt does not report any insecurities with food, long term, and/or utilities. Pt does not have DME, home health, or provider services. Discharge goal is to return home. Addendum: 10/31/24 at 0852 by JEN VICTOR CM Amended: Links added.
[2024-10-30] MEDS: INSULIN humuLIN R 100 UNIT/ML 3ML SQ SCH (17:28)
[2024-10-30] MEDS: INSULIN GLARgine 100 UNITS/ML 10 ML VIAL SQ SCH (20:37)
[2024-10-31] VITALS (8 sets, daily range): BP systolic 124–133; BP diastolic 79–89; PULSE 84–96; RESP 16–18; TEMP 97.8–98; O2SAT 97–99
[2024-10-31 05:00] LABS: BASOPHILS # (AUTO) 0.05 K/uL (0.00-0.20); BASOPHILS % (AUTO) 0.7 % (0.0-5.0); EOSINOPHILS # (AUTO) 0.29 K/uL (0.00-0.70); EOSINOPHILS % (AUTO) 4.3 % (0.0-8.0); HEMATOCRIT 34.2 % (36-48); IMMATURE GRANULOCYTE ABSOLUTE 0.01 K/uL (0-1); LYMPHOCYTES # (AUTO) 3.3 K/uL (1.0-4.8); LYMPHOCYTES % (AUTO) 48.5 % (21.0-51.0); MEAN CORPUSCULAR HEMOGLOBIN 30.6 pg (27.0-33.0); MEAN CORPUSCULAR VOLUME 92.7 fL (79-99); MONOCYTES # (AUTO) 0.7 K/uL (0.1-1.0); MONOCYTES % (AUTO) 10.4 % (3.0-13.0); NEUTROPHILS # (AUTO) 2.5 K/uL (1.8-7.7); PLATELET COUNT (AUTO) 364 K/uL (130-400); RED BLOOD CELL COUNT(AUTO) 3.69 MIL/uL (4.00-5.50); RED CELL DISTRIBUTION WIDTH 13.7 % (11.0-15.5); WHITE BLOOD COUNT (AUTO) 6.8 K/uL (4.8-10.8)
[2024-10-31 05:17] LABS: CREATININE 0.6 mg/dL (0.5-1.0); MAGNESIUM 1.6 mg/dL (1.80-2.40); PHOSPHORUS 3.4 mg/dL (2.5-4.9); POTASSIUM 4.2 mmol/L (3.5-5.1)
[2024-10-31] MEDS: MAGNESIUM 2GM PREMIX 50ML 50 ML IV PRN (06:53)
--- NOTE | 2024-10-31 15:28 | PN ---
[facility] PROGRESS NOTE Date of Service: Oct 31, 2024 Time of Service: 15:17 SUBJECTIVE: 10/30 No acute events overnight. Blood sugars improving, nausea/vomiting resolved. Patient was given reglan, which will be held. Gastric emptying study has been ordered to be done on Friday 48 hours after last dose of reglan to assess for gastroparesis. 10/31 blood sugars now elevated, will adjust sliding scale and glargine. Pt believes she was hyoglycemic because she could not tolerate food and continued vomiting. Gastric emptying study scheduled for tomorrow. REVIEW OF SYSTEMS 12 point ROS negative unless noted in HPI PHYSICAL EXAM GENERAL APPEARANCE: The patient is awake, alert, and oriented, in no acute cardiopulmonary distress. NEUROLOGICAL: Cranial nerves II-XII grossly intact. Motor is 5/5 in bilateral upper and lower extremities proximal to distal. No sensory deficits. HEENT: Face is symmetric. Pupils are equal and reactive. Extraocular movements are intact. NECK: Supple. No JVD. No thyromegaly. No submental, submandibular, pre- /postauricular, occipital or supraclavicular lymphadenopathy. CHEST: Normal chest expansion. No Telemetry. LUNGS: Absence of any rales, rhonchi or any wheezing. CARDIOVASCULAR: Regular. S1 and S2 normal. No appreciable rubs, murmurs or gallops. ABDOMEN: Soft, nontender, and nondistended. There is no rebound, voluntary guarding, or rigidity. : Deferred. No Chinchilla. EXTREMITIES: Non-edematous and not cyanotic. No clubbing. Good capillary refill. SKIN: No skin breakdown. Vital Signs (last 8hr) Date Time Temp Pulse Resp B/P (MAP) Pulse Ox O2 Delivery O2 Flow Rate FiO2 10/31/24 12:23 97.9 91 16 127/79 97 Room Air 10/31/24 08:14 98.1 87 16 125/82 100 Room Air 10/31/24 08:00 99 Room Air* 0 21 LABS: Laboratory: Test 10/31/24 11:16 10/31/24 05:11 10/31/24 04:34 10/30/24 05:30 Range/Units Whole Blood Glucose 90 # 70-110 MG/DL Bedside Glucose Comment Notified Nurse White Blood Count 6.8 4.8-10.8 K/uL Red Blood Count 3.69 L 4.00-5.50 MIL/uL Hemoglobin 11.3 L 12.0-16.0 g/dL Hematocrit 34.2 L 36-48 % Mean Corpuscular Volume 92.7 79-99 fL Mean Corpuscular Hemoglobin 30.6 27.0-33.0 pg Mean Corpuscular Hemoglobin Concent 33.0 32.0-36.0 g/dL Red Cell Distribution Width 13.7 11.0-15.5 % Platelet Count 364 130-400 K/uL Mean Platelet Volume 9.0 7.5-10.5 fL Immature Granulocyte % (Auto) 0.1 0-1 % Neutrophils (%) (Auto) 36.0 L 40.0-77.0 % Lymphocytes (%) (Auto) 48.5 21.0-51.0 % Monocytes (%) (Auto) 10.4 3.0-13.0 % Eosinophils (%) (Auto) 4.3 0.0-8.0 % Basophils (%) (Auto) 0.7 0.0-5.0 % Neutrophils # (Auto) 2.5 1.8-7.7 K/uL Lymphocytes # (Auto) 3.3 1.0-4.8 K/uL Monocytes # (Auto) 0.7 0.1-1.0 K/uL Eosinophils # (Auto) 0.29 0.00-0.70 K/uL Basophils # (Auto) 0.05 0.00-0.20 K/uL Absolute Immature Granulocyte (auto 0.01 0-1 K/uL Nucleated Red Blood Cells 0.0 0.0-0.19 % Sodium Level 138 136-145 mmol/L Potassium Level 4.2 3.5-5.1 mmol/L Chloride Level 103 101-111 mmol/L Carbon Dioxide Level 26 21-32 mmol/L Blood Urea Nitrogen 14 7-18 mg/dL Creatinine 0.6 0.5-1.0 mg/dL Glomerular Filtration Rate Calc 128 >90 mL/min Random Glucose 323 #H 70-105 mg/dL Total Calcium 8.6 8.5-10.1 mg/dL Phosphorus Level 3.4 2.5-4.9 mg/dL Magnesium Level 1.60 L 1.80-2.40 mg/dL Vitamin B12 Level 444 193-986 pg/mL Vitamin D 25-Hydroxy 20.0 30.0-100.0 ng/mL Test 10/29/24 15:36 Range/Units Hemoglobin A1c 11.8 H 4.0-6.0 % Estimated Average Glucose (eAG) 292 H 70-126 mg/dL Whole Blood Ketones Quantitative 0.7 H 0.0-0.6 mmol/L Total Bilirubin 0.2 0.2-1.0 mg/dL Direct Bilirubin 0.1 0.0-0.3 mg/dL Aspartate Amino Transf (AST/SGOT) 16 10-37 U/L Alanine Aminotransferase (ALT/SGPT) 32 12-78 U/L Alkaline Phosphatase 99 50-136 U/L C-Reactive Protein, Quantitative 15.60 H 0.5-3.0 mg/L Total Protein 7.6 6.0-8.3 g/dL Albumin 3.1 L 3.5-5.0 g/dL Triglycerides Level 339 H 30-200 mg/dL Lipase 59 16-77 U/L Procalcitonin 0.07 0.05-0.5 ng/mL Thyroid Stimulating Hormone (TSH) 1.62 0.36-3.74 uIU/mL Serum Test, Qualitative NEGATIVE NEGATIVE Current Medications Medications (Trade) Dose Ordered Sig/José Route PRN Reason Start Time Stop Time Status Last Admin Dose Admin Ceftriaxone Sodium (ROCEphine 1G INJ) 1 gm Q24H IVPB 10/29/24 15:30 11/08/24 15:29 10/31/24 13:04 1 GM Dextrose (D50w) 50 ml AD PRN IV HYPOGLYCEMIA PROTOCOL 10/29/24 20:30 11/28/24 20:29 Dextrose (D50w) 50 ml ONCE STAT IV 10/29/24 11:41 10/29/24 11:42 DC 10/29/24 12:04 50 ML Dextrose/Sodium Chloride 1,000 ml @ 75 mls/hr [id number] IV 10/29/24 15:30 11/28/24 15:29 Hold 10/29/24 15:33 125 MLS/HR Dicyclomine HCl (Bentyl 20mg Inj) 20 mg ONCE STAT IM 10/29/24 10:52 10/29/24 11:01 DC 10/29/24 12:04 20 MG Famotidine (Pepcid 20mg Vial) 20 mg BID IV 10/29/24 21:00 7/20/25 20:59 10/31/24 08:38 20 MG Famotidine (Pepcid 20mg Vial) 20 mg ONCE STAT IV 10/29/24 10:52 10/29/24 11:01 DC 10/29/24 12:04 20 MG Glucagon (Glucagon 1mg Kit) 1 mg AD PRN IM HYPOGLYCEMIA PROTOCOL 10/29/24 20:30 11/28/24 20:29 Insulin Glargine (LANtus 100 UNITS/ML 10 ML VIAL) 15 units HS SQ 10/30/24 21:00 11/29/24 20:59 10/30/24 20:37 15 UNITS Insulin Human Regular (humuLIN R 100 UNIT/ML 3ML) INSULIN SLIDING SCAL... ACHS SQ 10/30/24 16:30 11/29/24 16:29 10/31/24 06:27 14 UNIT Insulin Human Regular (humuLIN R 100 UNIT/ML 3ML) INSULIN SLIDING SCAL... Q6H6 SQ 10/29/24 18:00 10/30/24 12:05 DC 10/30/24 11:46 8 UNIT Magnesium Sulfate 50 ml @ 0 mls/hr PROTOCOL PRN IV MAGNESIUM PROTOCOL 10/31/24 07:00 11/30/24 06:59 10/31/24 06:53 25 MLS/HR Metoclopramide HCl (regLAN 5 MG TAB) 5 mg ACHS PO 10/30/24 07:30 10/30/24 09:19 DC 10/30/24 06:29 5 MG Ondansetron HCl (zoFRAN 4MG INJ) 4 mg ONCE STAT IVP 10/29/24 10:52 10/29/24 11:01 DC 10/29/24 12:05 4 MG Potassium Chloride 100 ml @ 100 mls/hr AD PRN IV POTASSIUM PROTOCOL 10/29/24 16:30 11/28/24 16:29 Potassium Chloride (K-Dur/Klor-Con 20meq) 20 meq AD PRN PO POTASSIUM PROTOCOL 10/29/24 16:30 11/28/24 16:29 10/30/24 11:47 20 MEQ Potassium Chloride (KCl 10% Elixir 20meq/15ml) 20 meq AD PRN PO POTASSIUM PROTOCOL 10/29/24 16:30 11/28/24 16:29 Sodium Chloride 1,000 ml @ 100 mls/hr Q10H IV 10/29/24 20:30 11/28/24 20:29 10/31/24 13:01 100 MLS/HR Sodium Chloride 1,000 ml @ 1,000 mls/hr Q1H STAT IV 10/29/24 10:52 10/29/24 11:51 DC 10/29/24 12:04 1,000 MLS/HR DIAGNOSTICS / RADIOLOGY: [ ] ASSESSMENT: Hypoglycemia POA Diabetes mellitus type 1 last A1C 11.8 History of recurrent DKA Suspected diabetic gastroparesis PLAN: - patient to be admitted to [facility] - resume sliding scale insulin - Continue glargine 15U HS - Continue hypoglycemia protocol - Hold reglan - Gastric emptying study ordered for Friday Disposition: Pending gastric emptying study YELENA RUVALCABA MD Oct 31, 2024 15:27
[2024-11-01] VITALS (7 sets, daily range): BP systolic 116–142; BP diastolic 66–96; PULSE 85–93; RESP 16–20; TEMP 97.6–98.6; O2SAT 97–98
[2024-11-01 05:22] LABS: BASOPHILS # (AUTO) 0.05 K/uL (0.00-0.20); BASOPHILS % (AUTO) 0.8 % (0.0-5.0); EOSINOPHILS # (AUTO) 0.27 K/uL (0.00-0.70); EOSINOPHILS % (AUTO) 4.2 % (0.0-8.0); IMMATURE GRANULOCYTE ABSOLUTE 0.02 K/uL (0-1); LYMPHOCYTES # (AUTO) 2.8 K/uL (1.0-4.8); LYMPHOCYTES % (AUTO) 43.7 % (21.0-51.0); MEAN CORPUSCULAR HEMOGLOBIN 30.8 pg (27.0-33.0); MEAN CORPUSCULAR HGB CONC 33.3 g/dL (32.0-36.0); MEAN CORPUSCULAR VOLUME 92.3 fL (79-99); MONOCYTES # (AUTO) 0.5 K/uL (0.1-1.0); NEUTROPHILS # (AUTO) 2.8 K/uL (1.8-7.7); PLATELET COUNT (AUTO) 369 K/uL (130-400); RED CELL DISTRIBUTION WIDTH 13.7 % (11.0-15.5); WHITE BLOOD COUNT (AUTO) 6.4 K/uL (4.8-10.8)
[2024-11-01 05:45] LABS: CREATININE 0.9 mg/dL (0.5-1.0); POTASSIUM 4.6 mmol/L (3.5-5.1)
[2024-11-01] MEDS: INSULIN GLARgine 100 UNITS/ML 10 ML VIAL SQ SCH (09:31)
--- NOTE | 2024-11-01 11:43 | NUR ---
ARRIVAL TO UNIT VIA WHEELCHAIR. A&OX4. IV TO LEFT AC 20G. NON LABORED BREATHING. CLEAR LUNG SOUNDS. ANSWERED QUESTIONS.
--- NOTE | 2024-11-01 11:46 | NUR ---
report givent to
--- NOTE | 2024-11-01 14:07 | PN ---
[facility] PROGRESS NOTE Date of Service: Nov 01, 2024 Time of Service: 14:00 SUBJECTIVE: 10/30 No acute events overnight. Blood sugars improving, nausea/vomiting resolved. Patient was given reglan, which will be held. Gastric emptying study has been ordered to be done on Friday 48 hours after last dose of reglan to assess for gastroparesis. 10/31 blood sugars now elevated, will adjust sliding scale and glargine. Pt believes she was hyoglycemic because she could not tolerate food and continued vomiting. Gastric emptying study scheduled for tomorrow. 11/01 gastric emptying study pending today, will follow up post procedure. Vitals and labs relatively unremarkable. Pt denies any further nausea REVIEW OF SYSTEMS 12 point ROS negative unless noted in HPI PHYSICAL EXAM GENERAL APPEARANCE: The patient is awake, alert, and oriented, in no acute cardiopulmonary distress. NEUROLOGICAL: Cranial nerves II-XII grossly intact. Motor is 5/5 in bilateral upper and lower extremities proximal to distal. No sensory deficits. HEENT: Face is symmetric. Pupils are equal and reactive. Extraocular movements are intact. NECK: Supple. No JVD. No thyromegaly. No submental, submandibular, pre-/postauricular, occipital or supraclavicular lymphadenopathy. CHEST: Normal chest expansion. No Telemetry. LUNGS: Absence of any rales, rhonchi or any wheezing. CARDIOVASCULAR: Regular. S1 and S2 normal. No appreciable rubs, murmurs or gallops. ABDOMEN: Soft, nontender, and nondistended. There is no rebound, voluntary guarding, or rigidity. : Deferred. No Chinchilla. EXTREMITIES: Non-edematous and not cyanotic. No clubbing. Good capillary refill. SKIN: No skin breakdown. Vital Signs (last 8hr) Date Time Temp Pulse Resp B/P (MAP) Pulse Ox O2 Delivery O2 Flow Rate FiO2 11/01/24 11:08 97 Room Air* 0 21 11/01/24 11:00 98.1 93 16 116/66 98 Room Air 11/01/24 07:54 97.9 85 16 125/80 97 Room Air LABS: Laboratory: Test 11/01/24 11:14 11/01/24 05:38 11/01/24 05:16 10/31/24 04:34 Range/Units Whole Blood Glucose 151 H 70-110 MG/DL Bedside Glucose Comment Notified Nurse White Blood Count 6.4 4.8-10.8 K/uL Red Blood Count 3.90 L 4.00-5.50 MIL/uL Hemoglobin 12.0 12.0-16.0 g/dL Hematocrit 36.0 36-48 % Mean Corpuscular Volume 92.3 79-99 fL Mean Corpuscular Hemoglobin 30.8 27.0-33.0 pg Mean Corpuscular Hemoglobin Concent 33.3 32.0-36.0 g/dL Red Cell Distribution Width 13.7 11.0-15.5 % Platelet Count 369 130-400 K/uL Mean Platelet Volume 9.4 7.5-10.5 fL Immature Granulocyte % (Auto) 0.3 0-1 % Neutrophils (%) (Auto) 43.0 40.0-77.0 % Lymphocytes (%) (Auto) 43.7 21.0-51.0 % Monocytes (%) (Auto) 8.0 3.0-13.0 % Eosinophils (%) (Auto) 4.2 0.0-8.0 % Basophils (%) (Auto) 0.8 0.0-5.0 % Neutrophils # (Auto) 2.8 1.8-7.7 K/uL Lymphocytes # (Auto) 2.8 1.0-4.8 K/uL Monocytes # (Auto) 0.5 0.1-1.0 K/uL Eosinophils # (Auto) 0.27 0.00-0.70 K/uL Basophils # (Auto) 0.05 0.00-0.20 K/uL Absolute Immature Granulocyte (auto 0.02 0-1 K/uL Nucleated Red Blood Cells 0.0 0.0-0.19 % Sodium Level 136 136-145 mmol/L Potassium Level 4.6 3.5-5.1 mmol/L Chloride Level 102 101-111 mmol/L Carbon Dioxide Level 25 21-32 mmol/L Blood Urea Nitrogen 16 7-18 mg/dL Creatinine 0.9 0.5-1.0 mg/dL Glomerular Filtration Rate Calc 91 >90 mL/min Random Glucose 416 *H 70-105 mg/dL Total Calcium 8.8 8.5-10.1 mg/dL Phosphorus Level 3.4 2.5-4.9 mg/dL Magnesium Level 1.60 L 1.80-2.40 mg/dL Current Medications Medications (Trade) Dose Ordered Sig/José Route PRN Reason Start Time Stop Time Status Last Admin Dose Admin Ceftriaxone Sodium (ROCEphine 1G INJ) 1 gm Q24H IVPB 10/29/24 15:30 11/08/24 15:29 10/31/24 13:04 1 GM Dextrose (D50w) 50 ml AD PRN IV HYPOGLYCEMIA PROTOCOL 10/29/24 20:30 11/28/24 20:29 Dextrose (D50w) 50 ml ONCE STAT IV 10/29/24 11:41 10/29/24 11:42 DC 10/29/24 12:04 50 ML Dextrose/Sodium Chloride 1,000 ml @ 75 mls/hr [id number] IV 10/29/24 15:30 11/01/24 07:47 DC 10/29/24 15:33 125 MLS/HR Dicyclomine HCl (Bentyl 20mg Inj) 20 mg ONCE STAT IM 10/29/24 10:52 10/29/24 11:01 DC 10/29/24 12:04 20 MG Famotidine (Pepcid 20mg Vial) 20 mg BID IV 10/29/24 21:00 11/28/24 20:59 11/01/24 09:25 20 MG Famotidine (Pepcid 20mg Vial) 20 mg ONCE STAT IV 10/29/24 10:52 10/29/24 11:01 DC 10/29/24 12:04 20 MG Glucagon (Glucagon 1mg Kit) 1 mg AD PRN IM HYPOGLYCEMIA PROTOCOL 10/29/24 20:30 11/28/24 20:29 Insulin Glargine (LANtus 100 UNITS/ML 10 ML VIAL) 15 units BID SQ 11/01/24 09:00 11/29/24 20:59 11/01/24 09:31 15 UNITS Insulin Glargine (LANtus 100 UNITS/ML 10 ML VIAL) 15 units HS SQ 10/30/24 21:00 11/01/24 07:44 DC 10/31/24 22:18 15 UNITS Insulin Human Regular (humuLIN R 100 UNIT/ML 3ML) INSULIN SLIDING SCAL... ACHS SQ 10/30/24 16:30 11/29/24 16:29 11/01/24 06:23 16 UNIT Insulin Human Regular (humuLIN R 100 UNIT/ML 3ML) INSULIN SLIDING SCAL... Q6H6 SQ 10/29/24 18:00 10/30/24 12:05 DC 10/30/24 11:46 8 UNIT Magnesium Sulfate 50 ml @ 0 mls/hr PROTOCOL PRN IV MAGNESIUM PROTOCOL 10/31/24 07:00 11/30/24 06:59 10/31/24 06:53 25 MLS/HR Metoclopramide HCl (regLAN 5 MG TAB) 5 mg ACHS PO 10/30/24 07:30 10/30/24 09:19 DC 10/30/24 06:29 5 MG Ondansetron HCl (zoFRAN 4MG INJ) 4 mg ONCE STAT IVP 10/29/24 10:52 10/29/24 11:01 DC 10/29/24 12:05 4 MG Potassium Chloride 100 ml @ 100 mls/hr AD PRN IV POTASSIUM PROTOCOL 10/29/24 16:30 11/28/24 16:29 Potassium Chloride (K-Dur/Klor-Con 20meq) 20 meq AD PRN PO POTASSIUM PROTOCOL 10/29/24 16:30 11/28/24 16:29 10/30/24 11:47 20 MEQ Potassium Chloride (KCl 10% Elixir 20meq/15ml) 20 meq AD PRN PO POTASSIUM PROTOCOL 10/29/24 16:30 11/28/24 16:29 Sodium Chloride 1,000 ml @ 100 mls/hr Q10H IV 10/29/24 20:30 11/28/24 20:29 11/01/24 09:27 100 MLS/HR Sodium Chloride 1,000 ml @ 1,000 mls/hr Q1H STAT IV 10/29/24 10:52 10/29/24 11:51 DC 10/29/24 12:04 1,000 MLS/HR DIAGNOSTICS / RADIOLOGY: [ ] ASSESSMENT: Hypoglycemia POA Diabetes mellitus type 1 last A1C 11.8 History of recurrent DKA Suspected diabetic gastroparesis PLAN: - patient to be admitted to [facility] - resume sliding scale insulin - Continue glargine 15U HS - Continue hypoglycemia protocol - Hold reglan - Gastric emptying study ordered for Friday Disposition: Pending gastric emptying study YELENA RUVALCABA MD Nov 01, 2024 14:07
--- NOTE | 2024-11-01 16:52 | HMCIMG ---
NM GASTRIC EMPTYING STUDY REASON: uncontrolled DM, recurrent N/V. COMPARISON: None TECHNIQUE: Nuclear gastric emptying study was performed with 1.5 mCi of technetium sulfur colloid with scrambled eggs through oral route. FINDINGS: T half for gastric emptying is 3821 minutes. IMPRESSION: Abnormal delay in gastric emptying study.
[2024-11-02] VITALS: BP 130/81; PULSE 82; RESP 24; TEMP 97.8
[2024-11-02 04:00] VITALS: BP 114/78; PULSE 85; RESP 20; TEMP 97.8
[2024-11-02 06:48] LABS: BASOPHILS # (AUTO) 0.04 K/uL (0.00-0.20); BASOPHILS % (AUTO) 0.5 % (0.0-5.0); EOSINOPHILS # (AUTO) 0.26 K/uL (0.00-0.70); EOSINOPHILS % (AUTO) 3.5 % (0.0-8.0); HEMATOCRIT 38.1 % (36-48); IMMATURE GRANULOCYTE ABSOLUTE 0.04 K/uL (0-1); LYMPHOCYTES # (AUTO) 3.1 K/uL (1.0-4.8); LYMPHOCYTES % (AUTO) 42.1 % (21.0-51.0); MEAN CORPUSCULAR HEMOGLOBIN 30.4 pg (27.0-33.0); MEAN CORPUSCULAR HGB CONC 33.6 g/dL (32.0-36.0); MEAN CORPUSCULAR VOLUME 90.5 fL (79-99); MONOCYTES # (AUTO) 0.7 K/uL (0.1-1.0); MONOCYTES % (AUTO) 9.4 % (3.0-13.0); NEUTROPHILS # (AUTO) 3.3 K/uL (1.8-7.7); PLATELET COUNT (AUTO) 239 K/uL (130-400); RED BLOOD CELL COUNT(AUTO) 4.21 MIL/uL (4.00-5.50); RED CELL DISTRIBUTION WIDTH 13.5 % (11.0-15.5); WHITE BLOOD COUNT (AUTO) 7.4 K/uL (4.8-10.8)
[2024-11-02 07:14] LABS: CREATININE 0.8 mg/dL (0.5-1.0); POTASSIUM 3.7 mmol/L (3.5-5.1)
[2024-11-02 07:43] VITALS: BP 145/90; PULSE 81; RESP 16; TEMP 97.9
[2024-11-02 08:26] VITALS: O2SAT 98
[2024-11-02] MEDS: metoCLOPRAmide 5 MG TABLET PO SCH (10:20)
--- NOTE | 2024-11-02 10:58 | NUR ---
DR. RUVALCABA AT BEDSIDE. EXPLAINED REGLAN TO PT. ANSWERED QUESTIONS. NO FURTHER ORDERS AT THIS TIME.
[2024-11-02 11:37] VITALS: BP 148/92; PULSE 79; RESP 16; TEMP 98.2
[2024-11-02] MEDS ORDERED: METO5TAB2 PO (12:02)
--- NOTE | 2024-11-02 12:37 | NUR ---
DISCHARGE DC'D IV. NO COMPLICATIONS. AWARE OF NEW PRESCRIPTION SENT TO PHARMACY, TO FOLLOW UP WITH PCP IN 3-7 DAYS, AND TO FOLLOW UP WITH ENDOCRONOLOGIST. ANSWERED ALL QUESTIONS.
--- NOTE | 2024-11-02 13:08 | NUR ---
Pt d/c before RD could educate Addendum: 11/02/24 at [address] Amended: Links added.
--- NOTE | 2024-11-02 15:13 | DS ---
Discharge Summary Hospital Course Summary: 24-year-old female with past medical history of diabetes mellitus type one who presented to the hospital secondary to nausea, vomiting, epigastric. Patient states since yesterday she has noted episodes of nausea, vomiting and pain in the epigastric area. Pain does not radiate. She describes the pain as sharp in nature. She has had associated vomiting. She feels after she eats she gets bloated. She states her food stays in her stomach for longer duration. She was recently hospitalized in [facility] for DKA and was discharged on October 24. She is currently on [id number] units daily and Humalog which she takes with meals. She did take her Lantus in the morning today. She did not eat very well in the morning. She denied any changes in her bowel movements. Denied any constipation diarrhea, melena, hematochezia, hematemesis. Denied any changes in her urination. Denied any dysuria. Denied any chest pain, shortness of breath, falls, syncopal episode. She sees Dr. Lamb as outpatient who has been adjusting her insulin. He is going to be approved for insulin pump. Labs were notable for white count of 10.1, hemoglobin was 14.0, platelet count was 533 K, sodium was 133, potassium was 4.0, creatinine was 1.2, BUN was 32, calcium was 10.4 Patient's blood glucose on presentation was 79 which dropped to 47. She was given D50 once. Which increased her blood glucose to 121 and thereafter it was 107. She was started on D5 NS due to concern for hypoglycemia. Imaging was done in the ED. UA was negative for . 10/30 No acute events overnight. Blood sugars improving, nausea/vomiting resolved. Patient was given reglan, which will be held. Gastric emptying study has been ordered to be done on Friday 48 hours after last dose of reglan to assess for gastroparesis. 10/31 blood sugars now elevated, will adjust sliding scale and glargine. Pt believes she was hyoglycemic because she could not tolerate food and continued vomiting. Gastric emptying study scheduled for tomorrow. 11/01 gastric emptying study pending today, will follow up post procedure. Vitals and labs relatively unremarkable. Pt denies any further nausea Gastric emptying study showed delayed emptying and she was stdarted on reglan. By hospital day 4 she was stable, blood sugars stable and discharged back home. She will need close follow up with her PCP and rn cardiology to get set for her insulin pump and dexcom for more stable glycemic control. Procedure(s): NM GASTRIC EMPTYING STUDY REASON: uncontrolled DM, recurrent N/V. COMPARISON: None TECHNIQUE: Nuclear gastric emptying study was performed with 1.5 mCi of technetium sulfur colloid with scrambled eggs through oral route. FINDINGS: T half for gastric emptying is 3821 minutes. IMPRESSION: Abnormal delay in gastric emptying study. CT ABDOMEN/PELVIS W/O CONTRAST HISTORY: Epigastric pain COMPARISON: 12/18/2023 TECHNIQUE: Multiple sequential axial images of the abdomen and pelvis were obtained from the dome of the diaphragm through symphysis pubis. Patient was not given contrast through intravenous route. Oral contrast was not given. FINDINGS: No pleural effusion is seen bilaterally. There is no evidence of parenchymal disease or pulmonary nodule of the visualized lower lungs. Degenerative changes of the thoracolumbar spine are present. The heart is not enlarged. Liver measured 21 cm. The liver, spleen, adrenal glands and pancreas are unremarkable. There is no evidence of hydronephrosis bilaterally. No evidence of renal stone is seen. Fecal material is seen in the colon. There are normal size retroperitoneal and mesenteric lymph nodes. No ascites is seen. Appendix is not well-seen limiting evaluation. No definite CT evidence of acute appendicitis is seen. Pelvic sidewalls are symmetric bilaterally. Bladder is well distended without wall thickening. IMPRESSION: 1. Fecal material is seen in the colon. Assessment/Plan: Hypoglycemia, resolved POA Diabetes mellitus type 1 last A1C 11.8 History of recurrent DKA Diabetic gastroparesis Discharge Instructions: Follow up with PCP in 3-7 days. Please have patient follow up with rn cardiology immediately to start insulin pump as soon as possible Home Medications: Active Scripts Metoclopramide HCl (Metoclopramide HCl) 5 Mg Tablet, 5 MG PO BID, #60 TAB Prov:YELENA RUVALCABA MD 11/02/24 Reported Medications Insulin Glargine,Hum.rec.anlog (Lantus) 100 Unit/Ml Inj, 15 UNITS SQ DAILY, ML 10/20/24 Insulin Lispro (Humalog Brett Kwikpen) 100 Unit/Ml Ins.pen.hf, 8 UNIT SQ TIDAC 10/20/24 Discontinued Scripts Cefdinir (Cefdinir) 300 Mg Capsule, 1 CAP PO BID for 5 Days, #10 CAP 0 Refills Prov:MONICA FIERRO MD 10/24/24 New Medications: Metoclopramide HCl (Metoclopramide HCl) 5 Mg Tablet 5 MG PO BID, #60 TAB Continued Medications: Insulin Glargine,Hum.rec.anlog (Lantus) 100 Unit/Ml Inj 15 UNITS SQ DAILY, ML Insulin Lispro (Humalog Brett Kwikpen) 100 Unit/Ml Ins.pen.hf 8 UNIT SQ TIDAC Time spent arranging discharge: 31-60 minutes YELENA RUVALCABA MD Nov 02, 2024 15:13
== END 2024-11-02 13:05 | disposition home or self-care (01) | DRG 74 ==
LOC: EDH 10:05 → OBSVTOIN 15:09 → EDHIP 15:09 → 2DH 19:50 → 3AH 11-01 11:45
PROVIDERS: ADMIT Internal Medicine; ATTEND Internal Medicine
DX: E10.43 Type 1 diabetes mellitus with diabetic autonomic (poly)neuropathy (principal); E10.649 Type 1 diabetes mellitus with hypoglycemia without coma; K31.84 Gastroparesis; Z79.4 Long term (current) use of insulin; Z79.899 Other long term (current) drug therapy
CPT/HCPCS: 36415; 74176; 78264; 80048; 80076; 81001; 81025; 82010; 82306; 82607; 82948; 83036; 83690; 83735; 84100; 84145; 84443; 84478; 84703; 85025; 86140; 87086; 99285; A9541; G0378; J0500; J0696; J1815; J2405; J3475; J3490; J7030; J7042; J7070

== ENCOUNTER 2025-02-21 19:37 | Inpatient (IN) | payer OTHER ==
[~2025-02-21] VITALS: Ht 160 cm; Wt 68.7 kg
[~2025-02-21 19:37] MED LIST changes: -CEFD300C3 PO; +METO5TAB2 PO
--- NOTE | 2025-02-21 19:58 | ERN ---
ED Note History of Present Illness Stated Complaint: C/O HIGH SUGAR, ABD PAIN, N X V Chief Complaint: Blood Sugar Problem Time Seen by MD: 19:46 Dictation: This is a 24-year-old female who has a known history of diabetes comes in stating that he has been having nausea and vomitings and thinks her blood sugar is very high. Patient states since yesterday she has noted episodes of nausea, vomiting and pain in the epigastric area. Pain does not radiate. She describes the pain as sharp in nature. She has had associated vomiting. She feels after she eats she gets bloated. She states her food stays in her stomach for longer duration. She did not eat very well in the morning. She denied any changes in her bowel movements. Denied any constipation diarrhea, melena, hematochezia, hematemesis. Denied any changes in her urination. Denied any dysuria. Denied any chest pain, shortness of breath, falls, syncopal episode. She is on an insulin pump. Temperature 98.2 pulse 119 respirations 20 blood pressure 101/52 with a pulse oximetry of 98% on room air Allergies: Coded Allergies: levofloxacin (Unverified Allergy, Unknown, 12/19/23) Home Meds Reported Medications Insulin Glargine,Hum.rec.anlog (Lantus) 100 Unit/Ml Inj, 15 UNITS SQ DAILY, ML 10/20/24 Insulin Lispro (Humalog Brett Kwikpen) 100 Unit/Ml Ins.pen.hf, 8 UNIT SQ TIDAC 10/20/24 Discontinued Scripts Metoclopramide HCl (Metoclopramide HCl) 5 Mg Tablet, 5 MG PO BID, #60 TAB Prov:YELENA RUVALCABA MD 11/02/24 Past Medical History Past Medical History: Diabetes-Type I Additional Past Medical Hx: DKA Surgical History: None Social History: Negative, Lives with family LMP: Mar 01, 2025 RN Note Reviewed/Agreed w/PFSH: Yes Review of System Dictation Constitutional: Negative for fever,chills, and weight loss Eyes: Negative for injury, pain,redness, and discharge ENT: Negative for injury,pain or swelling Cardiovascular: Negative for chest pain, palpitations, and edema Respiratory: Negative for shortness of breath, cough, and wheezing, Abdomen/GI: Positive for abdominal pain, nausea, vomiting, denied diarrhea, and constipation Back: Negative for injury and pain : Negative for injury, bleeding and discharge MS/Extremity: Negative for injury and deformity Skin: Negative for rash, and discoloration Neuro: Negative for headache, weakness, numbness, tingling, and seizure Psych: Negative for suicide ideation, homicidal ideation, and hallucinations Initial Vital Sign VS Vital Signs Date Time Temp Pulse Resp B/P (MAP) Pulse Ox O2 Delivery O2 Flow Rate FiO2 02/21/25 19:42 98.2 119 20 101/52 99 Room Air 02/21/25 19:50 0 21 Physical Exam Dictation General: awake, alert, NAD Head/Face: Normocephalic, atraumatic Eyes: PERRL, EOMI, vision at baseline ENT: oral cavity clear, TMs clear, no signs of infection Neck: Trachea midline, supple, no nuchal rigidity Cardiovascular: RRR, normal S1/S2, No MRGs, no JVD Respiratory: CTAB, no respiratory distress, No rales or wheezes Abdomen: Soft, non-tender, non-distended, normal bowel sounds, no guarding or rebound. Skin: Warm, dry, normal turgor, no rash MS/Extremity: Pulses equal, no cyanosis, neurovascular intact, FROM Neuro: COAx4, GCS 15, strength 5/5, CN 2-12 intact, normal cerebellar exam, normal gait, Psych: Normal behavior, mood, and affect normal Extremities-trace edema without any palpable cords, Homans sign is negative Results (Laboratory/Radiology) Laboratory/Radiology Laboratory Tests Test 02/21/25 19:54 02/21/25 20:21 02/21/25 21:30 02/21/25 22:14 Whole Blood Glucose 536 MG/DL (70-110) *H 429 MG/DL (70-110) *H White Blood Count 15.2 K/uL (4.8-10.8) H Red Blood Count 4.80 MIL/uL (4.00-5.50) Hemoglobin 14.1 g/dL (12.0-16.0) Hematocrit 42.9 % (36-48) Mean Corpuscular Volume 89.4 fL (79-99) Mean Corpuscular Hemoglobin 29.4 pg (27.0-33.0) Mean Corpuscular Hemoglobin Concent 32.9 g/dL (32.0-36.0) Red Cell Distribution Width 12.1 % (11.0-15.5) Platelet Count 310 K/uL (130-400) Mean Platelet Volume 10.4 fL (7.5-10.5) Immature Granulocyte % (Auto) 0.5 % (0-1) Neutrophils (%) (Auto) 86.5 % (40.0-77.0) H Lymphocytes (%) (Auto) 7.8 % (21.0-51.0) L Monocytes (%) (Auto) 4.7 % (3.0-13.0) Eosinophils (%) (Auto) 0.1 % (0.0-8.0) Basophils (%) (Auto) 0.4 % (0.0-5.0) Neutrophils # (Auto) 13.1 K/uL (1.8-7.7) H Lymphocytes # (Auto) 1.2 K/uL (1.0-4.8) Monocytes # (Auto) 0.7 K/uL (0.1-1.0) Eosinophils # (Auto) 0.01 K/uL (0.00-0.70) Basophils # (Auto) 0.06 K/uL (0.00-0.20) Absolute Immature Granulocyte (auto 0.08 K/uL (0-1) Nucleated Red Blood Cells 0.0 % (0.0-0.19) White Cell Morphology Comment See comments Sodium Level 134 mmol/L (136-145) L Potassium Level 5.0 mmol/L (3.5-5.1) Chloride Level 93 mmol/L (101-111) L Carbon Dioxide Level 15 mmol/L (21-32) L Blood Urea Nitrogen 32 mg/dL (7-18) H Creatinine 1.4 mg/dL (0.5-1.0) H Glomerular Filtration Rate Calc 54 mL/min (>90) Random Glucose 524 mg/dL (70-105) *H Hemoglobin A1c 7.6 % (4.0-6.0) H Estimated Average Glucose (eAG) 171 mg/dL (70-126) H Total Calcium 9.6 mg/dL (8.5-10.1) Urine Color COLORLESS (YELLOW) Urine Appearance CLEAR (CLEAR) Urine pH 5.0 (5.0-8.0) Urine Specific [place] 1.020 (1.001-1.031) Urine Protein NEGATIVE mg/dL (NEGATIVE) Urine Glucose (UA) >=1000 mg/dL (NEGATIVE) H Urine Ketones 150 mg/dL (NEGATIVE) H Urine Occult Blood NEGATIVE (NEGATIVE) Urine Nitrate NEGATIVE (NEGATIVE) Urine Bilirubin NEGATIVE mg/dL (NEGATIVE) Urine Urobilinogen 0.2 mg/dL (0.2-1.0) Urine Leukocyte Esterase NEGATIVE Otf/uL Urine RBC 0-1 /HPF (0-1) Urine WBC 0-1 /HPF (0-1) Urine Squamous Epithelial Cells MOD /HPF (0-2) Urine Bacteria None /HPF (None Seen) Urine Hyaline Casts 2-5 /LPF (0-1 /LPF) H Urine Other Casts 2 /LPF (None Seen) Urine HCG, Qualitative NEGATIVE (NEGATIVE) Urine Opiates Screen NEGATIVE (NEGATIVE) Urine Barbiturates Screen NEGATIVE (NEGATIVE) Urine Phencyclidine Screen NEGATIVE (NEGATIVE) Urine Amphetamines Screen NEGATIVE (NEGATIVE) Urine Benzodiazepines Screen NEGATIVE (NEGATIVE) Urine Cocaine Screen NEGATIVE (NEGATIVE) Urine Marijuana (THC) Screen NEGATIVE (NEGATIVE) Bedside Glucose Comment Protocol Initiated Test 02/21/25 22:55 02/21/25 23:09 02/21/25 23:50 02/22/25 01:21 Sodium Level 140 mmol/L (136-145) Potassium Level 4.4 mmol/L (3.5-5.1) Chloride Level 101 mmol/L (101-111) Carbon Dioxide Level 20 mmol/L (21-32) L Blood Urea Nitrogen 27 mg/dL (7-18) H Creatinine 1.2 mg/dL (0.5-1.0) H Glomerular Filtration Rate Calc 64 mL/min (>90) Random Glucose 298 mg/dL (70-105) H Whole Blood Ketones Quantitative 5.8 mmol/L (0.0-0.6) H Total Calcium 9.0 mg/dL (8.5-10.1) Whole Blood Glucose 291 MG/DL (70-110) H 229 MG/DL (70-110) H 189 MG/DL (70-110) H Test 02/22/25 02:24 02/22/25 03:30 02/22/25 04:43 02/22/25 05:38 Whole Blood Glucose 154 MG/DL (70-110) H 128 MG/DL (70-110) H 107 MG/DL (70-110) White Blood Count 12.5 K/uL (4.8-10.8) H Red Blood Count 3.88 MIL/uL (4.00-5.50) L Hemoglobin 11.5 g/dL (12.0-16.0) L Hematocrit 34.1 % (36-48) #L Mean Corpuscular Volume 87.9 fL (79-99) Mean Corpuscular Hemoglobin 29.6 pg (27.0-33.0) Mean Corpuscular Hemoglobin Concent 33.7 g/dL (32.0-36.0) Red Cell Distribution Width 12.2 % (11.0-15.5) Platelet Count 312 K/uL (130-400) Mean Platelet Volume 9.9 fL (7.5-10.5) Immature Granulocyte % (Auto) 0.2 % (0-1) Neutrophils (%) (Auto) 48.7 % (40.0-77.0) Lymphocytes (%) (Auto) 37.9 % (21.0-51.0) Monocytes (%) (Auto) 11.1 % (3.0-13.0) Eosinophils (%) (Auto) 1.6 % (0.0-8.0) Basophils (%) (Auto) 0.5 % (0.0-5.0) Neutrophils # (Auto) 6.1 K/uL (1.8-7.7) Lymphocytes # (Auto) 4.8 K/uL (1.0-4.8) Monocytes # (Auto) 1.4 K/uL (0.1-1.0) H Eosinophils # (Auto) 0.20 K/uL (0.00-0.70) Basophils # (Auto) 0.06 K/uL (0.00-0.20) Absolute Immature Granulocyte (auto 0.02 K/uL (0-1) Nucleated Red Blood Cells 0.0 % (0.0-0.19) Sodium Level 140 mmol/L (136-145) Potassium Level 4.0 mmol/L (3.5-5.1) Chloride Level 107 mmol/L (101-111) Carbon Dioxide Level 24 mmol/L (21-32) Blood Urea Nitrogen 19 mg/dL (7-18) H Creatinine 0.8 mg/dL (0.5-1.0) Glomerular Filtration Rate Calc 105 mL/min (>90) Random Glucose 68 mg/dL (70-105) #L Total Calcium 8.3 mg/dL (8.5-10.1) L Triglycerides Level 64 mg/dL (30-200) Cholesterol Level 193 mg/dL (<200) # LDL Cholesterol 114 mg/dL (0-99) H HDL Cholesterol 56 mg/dL (35-85) Lipase 14 U/L (16-77) L Thyroid Stimulating Hormone (TSH) 1.65 uIU/mL (0.36-3.74) Test 02/22/25 05:45 02/22/25 06:57 02/22/25 07:51 02/22/25 09:55 Whole Blood Glucose 52 MG/DL (70-110) #L 65 MG/DL (70-110) L 76 MG/DL (70-110) 104 MG/DL (70-110) Test 02/22/25 10:53 02/22/25 11:32 02/22/25 13:41 02/22/25 14:42 Sodium Level 138 mmol/L (136-145) 140 mmol/L (136-145) Potassium Level 3.9 mmol/L (3.5-5.1) 3.6 mmol/L (3.5-5.1) Chloride Level 106 mmol/L (101-111) 108 mmol/L (101-111) Carbon Dioxide Level 21 mmol/L (21-32) 23 mmol/L (21-32) Blood Urea Nitrogen 16 mg/dL (7-18) 13 mg/dL (7-18) Creatinine 0.7 mg/dL (0.5-1.0) 0.8 mg/dL (0.5-1.0) Glomerular Filtration Rate Calc 123 mL/min (>90) 105 mL/min (>90) Random Glucose 114 mg/dL (70-105) #H 129 mg/dL (70-105) H Total Calcium 7.9 mg/dL (8.5-10.1) L 7.7 mg/dL (8.5-10.1) L Whole Blood Glucose 89 MG/DL (70-110) 60 MG/DL (70-110) L Test 02/22/25 16:34 02/22/25 19:15 02/22/25 20:35 02/22/25 23:10 Whole Blood Glucose 138 MG/DL (70-110) #H 345 MG/DL (70-110) #H Sodium Level 135 mmol/L (136-145) L 140 mmol/L (136-145) Potassium Level 4.6 mmol/L (3.5-5.1) 3.4 mmol/L (3.5-5.1) L Chloride Level 104 mmol/L (101-111) 107 mmol/L (101-111) Carbon Dioxide Level 20 mmol/L (21-32) L 24 mmol/L (21-32) Blood Urea Nitrogen 12 mg/dL (7-18) 14 mg/dL (7-18) Creatinine 0.7 mg/dL (0.5-1.0) 0.7 mg/dL (0.5-1.0) Glomerular Filtration Rate Calc 123 mL/min (>90) 123 mL/min (>90) Random Glucose 350 mg/dL (70-105) #H 129 mg/dL (70-105) #H Total Calcium 7.9 mg/dL (8.5-10.1) L 8.5 mg/dL (8.5-10.1) Labs Reviewed?: Yes ED Course ED Course Orders Procedure Category Date Status Time Cbc With Differential LAB 02/21/25 Complete 19:48 Basic Metabolic Panel LAB 02/21/25 Complete 19:48 Urinalysis Profile LAB 02/21/25 Complete 19:48 0.9%Nacl 1000ml (Ns PHA 02/21/25 Complete 1000ml) 20:00 Ondansetron 4mg Inj PHA 02/21/25 Complete (Zofran 4mg Inj) 20:00 Drug Screen Urine LAB 02/21/25 Complete 19:48 Ketorolac PHA 02/21/25 Complete Tromethamine 15mg/Ml 20:00 ,Urine Test LAB 02/21/25 Complete 19:51 Dka Prtcl:Restrict To CPOE 02/21/25 Transmitted Icu/Ccu 21:34 Dka Protcl:Dc All CPOE 02/21/25 Transmitted Meds/Feeding 21:34 Dka Protocol: Bmp Q4h CPOE 02/21/25 Transmitted Until 21:34 0.9%Nacl 1000ml (Ns PHA 02/21/25 Complete 1000ml) 22:00 D5w-1/2 Ns/20meq Kcl PHA 02/21/25 Complete (D5w-1/2 Ns/20meq K 22:00 Ns-20 Meq Kcl 1000ml PHA 02/21/25 Complete (Ns-20 Meq Kcl 1000 22:00 Magnesium 2gm Premix PHA 02/21/25 Complete 50ml (Magnesium 2gm 22:00 Insulin Regular, PHA 02/21/25 Complete Human 3ml (Humulin R 22:00 Mannitol 20% 250ml PHA 02/21/25 Complete Bag (Osmitrol 20% 250 22:00 Dka Protocol: Bs, Vs, CPOE 02/21/25 Transmitted Neuro 21:34 Dextrose 5 %-0.45 % PHA 02/21/25 Complete Nacl (D5 1/2ns) 22:00 Ketone Blood LAB 02/21/25 Complete Quantitative 21:35 Edm Admit Bridge Order ADM 02/21/25 Transmitted 22:04 Vital Signs(Adult CPOE 02/21/25 Transmitted Hospitalist) 22:41 Daily Weights CPOE 02/21/25 Transmitted 22:41 I&O Q Shift CPOE 02/21/25 Transmitted 22:41 Acetaminophen 325 Tab PHA 02/21/25 In Process (Tylenol 325mg Tab 23:00 Acetaminophen 325 Tab PHA 02/21/25 In Process (Tylenol 325mg Tab 23:00 Ondansetron 4mg Inj PHA 02/21/25 In Process (Zofran 4mg Inj) 23:00 Nurse To Enter Home CPOE 02/21/25 Transmitted Medication 22:41 Admit Orders ADM 02/21/25 Transmitted 22:41 Condition: CPOE 02/21/25 Transmitted 22:41 Telemetry Monitoring CPOE 02/21/25 Transmitted 22:41 Activity: Ad Bethany CPOE 02/21/25 Transmitted 22:41 Nothing By Mouth DIET 02/22/25 Complete Breakfast Apply Scds CPOE 02/21/25 Transmitted 22:41 Famotidine 20mg Vial PHA 02/22/25 In Process (Pepcid 20mg Vial) 09:00 Dka Prtcl:Restrict To CPOE 02/21/25 Transmitted Icu/Ccu 22:41 Dka Protcl:Dc All CPOE 02/21/25 Transmitted Meds/Feeding 22:41 Dka Protocol: Bmp Q4h CPOE 02/21/25 Transmitted Until 22:41 Basic Metabolic Panel LAB 02/21/25 Complete 22:41 Basic Metabolic Panel LAB 02/22/25 Complete 02:41 Basic Metabolic Panel LAB 02/22/25 Complete 10:41 Basic Metabolic Panel LAB 02/22/25 Complete 14:41 Basic Metabolic Panel LAB 02/22/25 Complete 18:41 Basic Metabolic Panel LAB 02/22/25 Complete 22:41 0.9%Nacl 1000ml (Ns PHA 02/21/25 Complete 1000ml) 23:00 D5w-1/2 Ns/20meq Kcl PHA 02/21/25 Complete (D5w-1/2 Ns/20meq K 23:00 Ns-20 Meq Kcl 1000ml PHA 02/21/25 Complete (Ns-20 Meq Kcl 1000 23:00 Magnesium 2gm Premix PHA 02/21/25 In Process 50ml (Magnesium 2gm 23:00 Insulin Regular, PHA 02/21/25 Complete Human 3ml (Humulin R 23:00 Dka Protocol: Bs, Vs, CPOE 02/21/25 Transmitted Neuro 22:41 Dextrose 5 %-0.45 % PHA 02/21/25 Complete Nacl (D5 1/2ns) 23:00 Critcal Care Consult CONPHYSVC 02/21/25 Transmitted 22:41 Endocrinology Consult CONPHYSVC 02/21/25 Transmitted 22:41 Cbc With Differential LAB 02/22/25 Complete 04:00 Hemoglobin A1c LAB 02/22/25 Complete 04:00 Ketorolac PHA 02/21/25 In Process Tromethamine 15mg/Ml 23:00 Lipase LAB 02/22/25 Complete 02:41 Lipid Panel LAB 02/22/25 Complete 02:41 Thyroid Stimulating LAB 02/22/25 Complete Hormone 02:41 Insulin PHA 02/22/25 In Process Glargine,Hum.Rec.Anlog 21:00 Initiate TALYA 02/22/25 In Process Hyperglycemia Protoco 12:04 Insulin Regular, PHA 02/22/25 In Process Human 3ml (Humulin R 16:30 Regular DIET 02/22/25 Complete Lunch Transfer To: CPOE 02/22/25 Transmitted 13:41 Cbc Without LAB 02/23/25 In Process Differential 04:00 Basic Metabolic Panel LAB 02/23/25 In Process 04:00 Ketone Blood LAB 02/23/25 In Process Quantitative 04:00 Consistent Carb DIET 02/23/25 Transmitted Breakfast Potassium Chloride PHA 02/23/25 In Process 20meq/100ml ([place] 00:00 Potassium Chl 10% PHA 02/23/25 In Process Elixir 20meq (Kcl 10% 00:00 Potassium Chloride PHA 02/23/25 In Process 20meq Er (K-Dur/Klor- 00:00 Current Medications Medications (Trade) Dose Ordered Sig/José Route PRN Reason Start Time Stop Time Status Last Admin Dose Admin Dextrose/Sodium Chloride 1,000 ml @ 0 mls/hr AD IV 02/21/25 22:00 02/21/25 22:51 DC Insulin Human Regular 100 unit/ Sodium Chloride 101 ml @ 0 mls/hr PROTOCOL IV 02/21/25 22:00 02/21/25 22:53 DC 02/21/25 22:16 Ketorolac Tromethamine (toRADol) 15 mg ONCE ONCE IV 02/21/25 20:00 02/21/25 19:53 DC Magnesium Sulfate 50 ml @ 0 mls/hr PROTOCOL IV 02/21/25 22:00 02/21/25 22:51 DC Mannitol (Osmitrol 20% 250ml Bag) 33 gm AD IV 02/21/25 22:00 02/21/25 21:42 DC Ondansetron HCl (zoFRAN 4MG INJ) 4 mg ONCE ONCE IVP 02/21/25 20:00 02/21/25 20:01 DC 02/21/25 20:21 Potassium Chloride/Dextrose/ Sod Cl 1,000 ml @ 0 mls/hr AD IV 02/21/25 22:00 02/21/25 22:51 DC Potassium Chloride/Sodium Chloride 1,000 ml @ 0 mls/hr PROTOCOL IV 02/21/25 22:00 02/21/25 22:51 DC Sodium Chloride 1,000 ml @ 0 mls/hr ONCE ONCE IV 02/21/25 20:00 02/21/25 20:01 DC 02/21/25 20:21 Sodium Chloride 1,000 ml @ 200 mls/hr PROTOCOL IV 02/21/25 22:00 02/21/25 22:51 DC 02/21/25 22:07 Vital Signs Date Time Temp Pulse Resp B/P (MAP) Pulse Ox O2 Delivery O2 Flow Rate FiO2 02/22/25 21:55 98.4 105 18 122/74 100 Room Air 21 02/22/25 21:55 Room Air* 0 21 02/22/25 21:49 100 18 103/68 99 Room Air* 0 21 02/22/25 16:02 98.4 104 20 103/68 100 Room Air 02/22/25 12:05 100 Room Air* 0 21 02/22/25 12:00 98.6 108 18 118/78 99 Room Air 02/22/25 07:33 98.2 108 18 112/78 100 Room Air* 0 21 02/22/25 06:59 98.2 105 20 104/64 97 Room Air* 0 21 02/22/25 04:34 98.1 102 18 98/52 98 Room Air* 0 21 02/22/25 02:15 98.1 108 20 106/62 99 Room Air* 0 21 02/22/25 00:13 98.1 114 16 125/6 98 Room Air* 0 21 02/21/25 21:45 97.9 119 20 128/87 96 Room Air* 0 21 02/21/25 20:45 97.9 121 19 119/82 98 Room Air* 0 21 02/21/25 19:50 98.1 115 19 126/82 97 Room Air* 0 21 02/21/25 19:42 98.2 119 20 101/52 99 Room Air 9:40 p.m. patient accepted by [facility] mid-level provider for [facility] hospitalist group for admission and further management of DKA to intensive care unit Medical Decision Making MDM Differential diagnosis: DKA, gastritis, cholecystitis, pancreatitis, esopha gitis This is a 24-year-old female who has a known history of diabetes comes in stating that he has been having nausea and vomitings and thinks her blood sugar is very high. Patient states since yesterday she has noted episodes of nausea, vomiting and pain in the epigastric area. Pain does not radiate. She describes the pain as sharp in nature. She has had associated vomiting. She feels after she eats she gets bloated. She states her food stays in her stomach for longer duration. She did not eat very well in the morning. She denied any changes in her bowel movements. Denied any constipation diarrhea, melena, hematochezia, hematemesis. Denied any changes in her urination. Denied any dysuria. Denied any chest pain, shortness of breath, falls, syncopal episode. She is on an insulin pump. Temperature 98.2 pulse 119 respirations 20 blood pressure 101/52 with a pulse oximetry of 98% on room air Patient's initial Accu-Chek was 536. She was initiated on IV fluids and her insulin pump was stopped. 9:13 p.m. CBC showed a white count of 15.2 hemoglobin 14 platelets 310. BNP 7 is significant for a sodium of 134 chloride 93 bicarbonate 15 BUN and creatinine are 32 and 1.4 with a glucose of 524 I updated the patient that she is in diabetic ketoacidosis with increased anion gap and very high sugar and need for hospitalization and she is agreeable She will be admitted to the intensive care unit Rationale: Tests considered and ordered secondary to shared decision making include: labs, ECG and radiology Previous outside records reviewed: Old ER visits. Risk of complication and/or morbidity or mortality of patient management: None Medications-Per medication reconciliation Need for hospitalization: Patient does meet criteria for hospitalization. Need for emergency major/minor surgery: No There are no social concerns with this patient. Prescription drug management Prescriptions will include symptomatic care Patient's prior external medical records from other ER visits were reviewed by me as indicated. Prior testing and results from previous visits were reviewed. Prior tests were taken into account with medical decision making and resource utilization, independent historian/historians were used to obtain complete medical history. I independently interpreted the test that were performed, results were reviewed by me and considered findings on radiology if ordered. Medical management and examination interpretation discussions were had by me with other qualified healthcare professionals as indicated for the patient's care. Problem List Problem List: (1) Diabetic ketoacidosis (2) Leukocytosis (3) Elevated lactic acid level (4) Dehydration DX & DISP Disposition: Inpatient Departure Impression: Primary Impression: Diabetic ketoacidosis Additional Impressions: Dehydration, Leukocytosis, Elevated lactic acid level Condition: Stable Additional Instructions: Patient was informed of all the diagnostic labs and procedures conducted in the emergency room today and demonstrated understanding of the results. I personally reviewed and interpreted all the diagnostic exams performed in the ER today. The patient will be admitted to the hospital for further treatment and evaluation. Disposition-admit to facility Condition-stable/guarded Course-uncertain at this time Pain status-decreased Assessment-exam unchanged Admission Certification- I certify that the patients status is appropriate and is based on my best clinical judgment and the patient's condition as documented in the medical records Referrals: ESTELLE BLAKE M.D. (PCP) KRISTA SMITH MD Feb 21, 2025 19:58
[2025-02-21] MEDS: 0.9%NACL 1000ML 1,000 ML IV ONE (20:21)
[2025-02-21 20:30] LABS: IMMATURE GRANULOCYTE ABSOLUTE 0.08 K/uL (0-1); NUCLEATED RED BLOOD CELLS 0.0 % (0.0-0.19); PLATELET COUNT (AUTO) 310 K/uL (130-400); RED BLOOD CELL COUNT(AUTO) 4.80 MIL/uL (4.00-5.50); RED CELL DISTRIBUTION WIDTH 12.1 % (11.0-15.5); WHITE BLOOD COUNT (AUTO) 15.2 K/uL (4.8-10.8)
[2025-02-21 20:57] LABS: CREATININE 1.4 mg/dL (0.5-1.0); GLOMERULAR FILTR. RATE CALC 54.0 mL/min (>90); SODIUM SERUM 134.0 mmol/L (136-145); UREA NITROGEN, BLOOD 32.0 mg/dL (7-18)
[2025-02-21 21:08] LABS: GLUCOSE,RANDOM 524.0 mg/dL (70-105)
[2025-02-21 21:48] LABS: AMPHET/METH SCREEN,URINE NEGATIVE (NEGATIVE); BARBITURATE SCREEN, URINE NEGATIVE (NEGATIVE); CANNABINOID SCREEN,URINE NEGATIVE (NEGATIVE); COCAINE SCREEN,URINE NEGATIVE (NEGATIVE)
[2025-02-21 22:00] LABS: APPEARANCE,URINE CLEAR (CLEAR); GLUCOSE, URINE (UA) >=1000 mg/dL (NEGATIVE); LEUKOCYTE ESTERASE ,URINE NEGATIVE Leu/uL (NEGATIVE); NITRATE,URINE NEGATIVE (NEGATIVE); OCCULT BLOOD,URINE NEGATIVE (NEGATIVE)
[2025-02-21] MEDS ORDERED: MAGNESIUM 2GM PREMIX 50ML 50 ML IV SCH ×2 (22:00→23:00)
[2025-02-21] MEDS ORDERED: MANNITOL 20% 250ML IV.SOLN IV SCH (22:00)
[2025-02-21] MEDS ORDERED: DEXTROSE 5 %-0.45 % NACL 1,000 ML IV SCH ×2 (22:00→23:00)
[2025-02-21] MEDS ORDERED: NS-20 MEQ KCL 1000ML 1,000 ML IV SCH ×2 (22:00→23:00)
[2025-02-21] MEDS ORDERED: D5W-1/2 NS/20MEQ KCL 1,000 ML IV SCH (22:00)
[2025-02-21 22:02] LABS: ADD UA MICROSCOPIC YES
[2025-02-21 22:05] LABS: OTHER CASTS, URINE 2 /LPF (None Seen); SQUAMOUS EPITHELIAL CELL,UR MOD /HPF (0-2)
[2025-02-21] MEDS: 0.9%NACL 1000ML 1,000 ML IV SCH (22:07)
[2025-02-21] MEDS: INSULIN REGULAR, HUMAN 3ML 100 UNIT in 0.9%NACL 100ML 100 ML IV SCH (22:16)
--- NOTE | 2025-02-21 22:40 | HP ---
[facility] HISTORY [facility] PHYSICAL Date of Service: Feb 21, 2025 Time of Service: 22:40 PCP: Dipika Brandon HISTORY OF PRESENT ILLNESS: This is a 24-year-old female with past medical history of type 1 diabetes with previous history of DKA who presented to the ED for complaints of nausea and vomiting x 3 today.Patient has an insulin pump however she missed her dose during lunch and dinner because she ran out while she was out of state and when gets here at night she said she tried to give herself a shot and rechecked her blood sugar remains high so she decided to come to the ED for evaluation.Patient also reports having mild epigastric pain and pain does not radiate.Patient has similar episode in the past and has to be admitted in ICU for insulin drip.Patient reports she has an outpatient cardiology appointment tomorrow for evaluation of palpitation. Seen and examined patient in the ER awake,alert and coherent,in no apparent distress. Latest vital signs temperature 97.9, heart rate 119, blood pressure 128/87, saturation 96% on room air. Labs: WBC 15 with negative left shift of neutrophils 86, hemoglobin 14, hematocrit 42, platelet count 310. Sodium 134, potassium five, chloride 93, carbon dioxide 15, BUN 32, creatinine 1.4, GFR 54 random glucose 536 total calcium 9.6 urine toxicology negative. Urinalysis significant for urine glucose above 1000 and urine ketones 150 hyaline casts 2- 5. Urine test negative. While in the ER patient received 1 L NS bolus, Zofran 4 mg IV, and Toradol 15 mg IV. We will admit patient to ICU for further medical management. REVIEW OF SYSTEMS CONSTITUTIONAL: Denies fevers, chills, or night sweats. No unintentional weight loss reported. NEUROLOGICAL: Denies headache, amaurosis fugax, motor weakness, sensory deficit, vertigo/spinning sensation, gait abnormalities, or tremors. ENT: No hearing loss, otalgia, otorrhea, rhinitis, rhinorrhea, hoarseness, or sore throat. CARDIOVASCULAR: Denies any exertional angina, dyspnea on exertion, orthopnea, paroxysmal nocturnal dyspnea, palpitations, life-threatening arrhythmias, claudication. PULMONARY: Denies any shortness of breath, cough, phlegm/sputum, hemoptysis, pleuritic chest pain. SLEEP: Denies morning headaches, daytime somnolence or napping. Denies difficulty falling asleep, staying asleep, waking from sleep. Denies knowledge of snoring. GASTROINTESTINAL: Complains of nausea vomiting and abdominal pain Denies any type of dysphagia to either liquids or solids. Denies pyrosis, early satiety, diarrhea, constipation, or changes in stool consistency or caliber. Denies coffee-ground emesis, hematemesis, hematochezia, or melanotic stools. GENITOURINARY: Denies frequency, urgency, nocturia, hematuria or incontinence (Storage/Irritative symptoms.) Low urinary stream, straining to void, urinary intermittency or hesitancy, splitting of the voiding stream, terminal dribbling. ENDOCRINOLOGIC: Denies polyuria, polydipsia, polyphagia or heat/cold intolerances. HEMATOLOGIC: Denies thrombophilia/previous clots, or coagulopathy/bleeding disorders. ONCOLOGIC: Denies personal history of malignancy. DERMATOLOGIC: Denies rashes or pruritus. PSYCHIATRIC: Denies any suicidal or homicidal ideation. Denies hallucinations. PAST MEDICAL HISTORY: [ Diabetes type 1 with history of DKA on insulin pump ] PAST SURGICAL HISTORY: [ Patient denies ] PAST SOCIAL HISTORY: [ Patient lives with family. Patient denies alcohol tobacco and recreational drug use ] FAMILY HISTORY: [ Diabetes ] Coded Allergies: levofloxacin (Unverified Allergy, Unknown, 12/19/23) PHYSICAL EXAM GENERAL APPEARANCE: The patient is awake, alert, and oriented, in no acute cardiopulmonary distress. NEUROLOGICAL: Cranial nerves II-XII grossly intact. Motor is 5/5 in bilateral upper and lower extremities proximal to distal. No sensory deficits. HEENT: Face is symmetric. Pupils are equal and reactive. Extraocular movements are intact. NECK: Supple. No JVD. No thyromegaly. No submental, submandibular, pre- /postauricular, occipital or supraclavicular lymphadenopathy. CHEST: Normal chest expansion. No Telemetry. LUNGS: Absence of any rales, rhonchi or any wheezing. CARDIOVASCULAR: Regular. S1 and S2 normal. No appreciable rubs, murmurs or gallops. ABDOMEN: Abdominal tenderness around epigastric area Soft and nondistended. There is no rebound, voluntary guarding, or rigidity. : Deferred. No Chinchilla. EXTREMITIES: Non-edematous and not cyanotic. No clubbing. Good capillary refill. SKIN: No skin breakdown. Vital Sign (Last 24 Hours) 02/21/25 21:45 Temp 97.9 Pulse 119 Resp 20 B/P (MAP) 128/87 Pulse Ox 96 O2 Delivery Room Air* O2 Flow Rate 0 FiO2 21 LABS: Laboratory: Test 02/21/25 22:14 02/21/25 21:30 02/21/25 20:21 Range/Units Whole Blood Glucose 429 *H 70-110 MG/DL Bedside Glucose Comment Protocol Initiated Urine Color COLORLESS YELLOW Urine Appearance CLEAR CLEAR Urine pH 5.0 5.0-8.0 Urine Specific [place] 1.020 1.001-1.031 Urine Protein NEGATIVE NEGATIVE mg/dL Urine Glucose (UA) >=1000 H NEGATIVE mg/dL Urine Ketones 150 H NEGATIVE mg/dL Urine Occult Blood NEGATIVE NEGATIVE Urine Nitrate NEGATIVE NEGATIVE Urine Bilirubin NEGATIVE NEGATIVE mg/dL Urine Urobilinogen 0.2 0.2-1.0 mg/dL Urine Leukocyte Esterase NEGATIVE NEGATIVE Otf/uL Urine RBC 0-1 0-1 /HPF Urine WBC 0-1 0-1 /HPF Urine Squamous Epithelial Cells MOD 0-2 /HPF Urine Bacteria None None Seen /HPF Urine Hyaline Casts 2-5 H 0-1 /LPF /LPF Urine Other Casts 2 None Seen /LPF Urine HCG, Qualitative NEGATIVE NEGATIVE Urine Opiates Screen NEGATIVE NEGATIVE Urine Barbiturates Screen NEGATIVE NEGATIVE Urine Phencyclidine Screen NEGATIVE NEGATIVE Urine Amphetamines Screen NEGATIVE NEGATIVE Urine Benzodiazepines Screen NEGATIVE NEGATIVE Urine Cocaine Screen NEGATIVE NEGATIVE Urine Marijuana (THC) Screen NEGATIVE NEGATIVE White Blood Count 15.2 H 4.8-10.8 K/uL Red Blood Count 4.80 4.00-5.50 MIL/uL Hemoglobin 14.1 12.0-16.0 g/dL Hematocrit 42.9 36-48 % Mean Corpuscular Volume 89.4 79-99 fL Mean Corpuscular Hemoglobin 29.4 27.0-33.0 pg Mean Corpuscular Hemoglobin Concent 32.9 32.0-36.0 g/dL Red Cell Distribution Width 12.1 11.0-15.5 % Platelet Count 310 130-400 K/uL Mean Platelet Volume 10.4 7.5-10.5 fL Immature Granulocyte % (Auto) 0.5 0-1 % Neutrophils (%) (Auto) 86.5 H 40.0-77.0 % Lymphocytes (%) (Auto) 7.8 L 21.0-51.0 % Monocytes (%) (Auto) 4.7 3.0-13.0 % Eosinophils (%) (Auto) 0.1 0.0-8.0 % Basophils (%) (Auto) 0.4 0.0-5.0 % Neutrophils # (Auto) 13.1 H 1.8-7.7 K/uL Lymphocytes # (Auto) 1.2 1.0-4.8 K/uL Monocytes # (Auto) 0.7 0.1-1.0 K/uL Eosinophils # (Auto) 0.01 0.00-0.70 K/uL Basophils # (Auto) 0.06 0.00-0.20 K/uL Absolute Immature Granulocyte (auto 0.08 0-1 K/uL Nucleated Red Blood Cells 0.0 0.0-0.19 % White Cell Morphology Comment See comments Sodium Level 134 L 136-145 mmol/L Potassium Level 5.0 3.5-5.1 mmol/L Chloride Level 93 L 101-111 mmol/L Carbon Dioxide Level 15 L 21-32 mmol/L Blood Urea Nitrogen 32 H 7-18 mg/dL Creatinine 1.4 H 0.5-1.0 mg/dL Glomerular Filtration Rate Calc 54 >90 mL/min Random Glucose 524 *H 70-105 mg/dL Total Calcium 9.6 8.5-10.1 mg/dL Current Medications Medications (Trade) Dose Ordered Sig/José Route PRN Reason Start Time Stop Time Status Last Admin Dose Admin Dextrose/Sodium Chloride 1,000 ml @ 0 mls/hr AD IV 02/21/25 22:00 03/23/25 21:59 Insulin Human Regular 100 unit/ Sodium Chloride 101 ml @ 0 mls/hr PROTOCOL IV 02/21/25 22:00 03/23/25 21:59 02/21/25 22:16 6.5 MLS/HR Magnesium Sulfate 50 ml @ 0 mls/hr PROTOCOL IV 02/21/25 22:00 03/23/25 21:59 Mannitol (Osmitrol 20% 250ml Bag) 33 gm AD IV 02/21/25 22:00 02/21/25 21:42 DC Potassium Chloride/Dextrose/ Sod Cl 1,000 ml @ 0 mls/hr AD IV 02/21/25 22:00 03/23/25 21:59 Potassium Chloride/Sodium Chloride 1,000 ml @ 0 mls/hr PROTOCOL IV 02/21/25 22:00 03/23/25 21:59 Sodium Chloride 1,000 ml @ 200 mls/hr PROTOCOL IV 02/21/25 22:00 03/23/25 21:59 02/21/25 22:07 200 MLS/HR DIAGNOSTICS / RADIOLOGY: [ ] ASSESSMENT: Diabetic ketoacidosis POA Acute kidney injury POA Possible dehydration POA Uncontrolled diabetes type 1 on insulin pump POA Pseudohyponatremia due to hyperglycemia POA Acute leukocytosis POA PLAN: We will admit patient in ICU We will keep nothing by mouth We will start on insulin drip, IV fluids and electrolyte replacement as per DKA protocol We will start on famotidine 20 mg IV daily for GI prophylaxis We will add prn medication for fever,pain,cough , nausea and vomiting We will reconcile home meds once medlist available We will seek endocrinology consultation We will seek critical care consultation Insulin pump needs to be turned off/removed while patient is on insulin drip We will request labs in am Further orders to follow depending on above results Case discussed with attending physician and came up with above treatment and plan of care. ADVANCED CARE PLANNING 1. Which of the following were discussed? Hospice Care - No Therapeutic options - Yes Advance Directives - No Other discussions - 2. Discussed with who? Patient 3. Voluntary nature of this service was explained to the patient? Yes 4. Amount of time spent - 25 min 5. Reviewed by Physician? (if this service was performed by NPP) Yes NOELLE KINGSTONP Feb 21, 2025 22:40
[2025-02-21] MEDS ORDERED: INSULIN REGULAR, HUMAN 3ML 100 UNIT in 0.9%NACL 100ML 100 ML IV SCH (23:00)
[2025-02-21] MEDS: D5W-1/2 NS/20MEQ KCL 1,000 ML IV SCH (23:17)
[2025-02-21 23:27] LABS: CREATININE 1.2 mg/dL (0.5-1.0); GLOMERULAR FILTR. RATE CALC 64.0 mL/min (>90); GLUCOSE,RANDOM 298.0 mg/dL (70-105); SODIUM SERUM 140.0 mmol/L (136-145); UREA NITROGEN, BLOOD 27.0 mg/dL (7-18)
[2025-02-22 06:09] LABS: IMMATURE GRANULOCYTE ABSOLUTE 0.02 K/uL (0-1); NUCLEATED RED BLOOD CELLS 0.0 % (0.0-0.19); PLATELET COUNT (AUTO) 312 K/uL (130-400); RED BLOOD CELL COUNT(AUTO) 3.88 MIL/uL (4.00-5.50); RED CELL DISTRIBUTION WIDTH 12.2 % (11.0-15.5); WHITE BLOOD COUNT (AUTO) 12.5 K/uL (4.8-10.8)
[2025-02-22 06:29] LABS: CREATININE 0.8 mg/dL (0.5-1.0); GLOMERULAR FILTR. RATE CALC 105.0 mL/min (>90); GLUCOSE,RANDOM 68.0 mg/dL (70-105); LDL DIRECT 114.0 mg/dL (0-99); SODIUM SERUM 140.0 mmol/L (136-145); UREA NITROGEN, BLOOD 19.0 mg/dL (7-18)
--- NOTE | 2025-02-22 07:17 | NUR ---
assumed patient care at this time
[2025-02-22] MEDS: 0.9%NACL 1000ML 1,000 ML IV SCH (08:10)
--- NOTE | 2025-02-22 08:17 | NUR ---
called and spoke to [employer] to get orders and recommendations for insulin drip and possible abgs to monitor patient anion gap, since insulin drip has been paused for past 3 hours and patients blood sugars have been 52 @ 0545, 65 @ 0645, and 76 @ 0745, patient resting in bed, call light in reach
[2025-02-22] MEDS: FAMOTIDINE 20MG VIAL IV SCH (10:57)
[2025-02-22 11:12] LABS: CREATININE 0.7 mg/dL (0.5-1.0); GLOMERULAR FILTR. RATE CALC 123.0 mL/min (>90); GLUCOSE,RANDOM 114.0 mg/dL (70-105); SODIUM SERUM 138.0 mmol/L (136-145); UREA NITROGEN, BLOOD 16.0 mg/dL (7-18)
[2025-02-22 12:00] VITALS: BP 118/78; PULSE 108; RESP 18; TEMP 98.6
[2025-02-22 12:05] VITALS: O2SAT 100
--- NOTE | 2025-02-22 13:46 | PN ---
[facility] PROGRESS NOTE Date of Service: Feb 22, 2025 Time of Service: 13:46 HISTORY OF PRESENT ILLNESS: This is a 24-year-old female with past medical history of type 1 diabetes with previous history of DKA who presented to the ED for complaints of nausea and vomiting x 3 today.Patient has an insulin pump however she missed her dose during lunch and dinner because she ran out while she was [place] of state and when gets here at night she said she tried to give herself a shot and rechecked her blood sugar remains high so she decided to come to the ED for evaluation.Patient also reports having mild epigastric pain and pain does not radiate.Patient has similar episode in the past and has to be admitted in ICU for insulin drip.Patient reports she has an outpatient cardiology appointment tomorrow for evaluation of palpitation. Seen and examined patient in the ER awake,alert and coherent,in no apparent distress. Latest vital signs temperature 97.9, heart rate 119, blood pressure 128/87, saturation 96% on room air. Labs: WBC 15 with negative left shift of neutrophils 86, hemoglobin 14, hematocrit 42, platelet count 310. Sodium 134, potassium five, chloride 93, carbon dioxide 15, BUN 32, creatinine 1.4, GFR 54 random glucose 536 total calcium 9.6 urine toxicology negative. Urinalysis significant for urine glucose above 1000 and urine ketones 150 hyaline casts 2- 5. Urine test negative. While in the ER patient received 1 L NS bolus, Zofran 4 mg IV, and Toradol 15 mg IV. We will admit patient to ICU for further medical management. SUBJECTIVE: 02/22/2025: Patient was evaluated at the bedside in the emergency department. Patient reports running out of insulin medication her pump when she was out of state. Patient had complaints of nausea and vomiting upon admission to ED. Patient was placed on IV insulin drip that resolved her DKA with the gap closed. Patient is started on Lantus 10 units and on regular diet. Patient will be admitted to med surg unit for further observation. Endocrinology consult was placed and we will follow their recommendations. REVIEW OF SYSTEMS CONSTITUTIONAL: Denies fevers, chills, or night sweats. No unintentional weight loss reported. NEUROLOGICAL: Denies headache, amaurosis fugax, motor weakness, sensory deficit, vertigo/spinning sensation, gait abnormalities, or tremors. ENT: No hearing loss, otalgia, otorrhea, rhinitis, rhinorrhea, hoarseness, or sore throat. CARDIOVASCULAR: Denies any exertional angina, dyspnea on exertion, orthopnea, paroxysmal nocturnal dyspnea, palpitations, life-threatening arrhythmias, claudication. PULMONARY: Denies any shortness of breath, cough, phlegm/sputum, hemoptysis, pleuritic chest pain. SLEEP: Denies morning headaches, daytime somnolence or napping. Denies difficulty falling asleep, staying asleep, waking from sleep. Denies knowledge of snoring. GASTROINTESTINAL: Complains of nausea vomiting and abdominal pain Denies any type of dysphagia to either liquids or solids. Denies pyrosis, early satiety, diarrhea, constipation, or changes in stool consistency or caliber. Denies coffee-ground emesis, hematemesis, hematochezia, or melanotic stools. GENITOURINARY: Denies frequency, urgency, nocturia, hematuria or incontinence (Storage/Irritative symptoms.) Low urinary stream, straining to void, urinary intermittency or hesitancy, splitting of the voiding stream, terminal dribbling. ENDOCRINOLOGIC: Denies polyuria, polydipsia, polyphagia or heat/cold intolerances. PHYSICAL EXAM GENERAL APPEARANCE: The patient is awake, alert, and oriented, in no acute cardiopulmonary distress. NEUROLOGICAL: Cranial nerves II-XII grossly intact. Motor is 5/5 in bilateral upper and lower extremities proximal to distal. No sensory deficits. HEENT: Face is symmetric. Pupils are equal and reactive. Extraocular movements are intact. NECK: Supple. No JVD. No thyromegaly. No submental, submandibular, pre- /postauricular, occipital or supraclavicular lymphadenopathy. CHEST: Normal chest expansion. No Telemetry. LUNGS: Absence of any rales, rhonchi or any wheezing. CARDIOVASCULAR: Regular. S1 and S2 normal. No appreciable rubs, murmurs or gallops. ABDOMEN: Abdominal tenderness around epigastric area Soft and nondistended. There is no rebound, voluntary guarding, or rigidity. : Deferred. No Chinchilla. EXTREMITIES: Non-edematous and not cyanotic. No clubbing. Good capillary refill. SKIN: No skin breakdown. Vital Signs (last 8hr) Date Time Temp Pulse Resp B/P (MAP) Pulse Ox O2 Delivery O2 Flow Rate FiO2 10/14/25 07:33 98.2 108 18 112/78 100 Room Air* 0 21 02/22/25 06:59 98.2 105 20 104/64 97 Room Air* 0 21 LABS: Laboratory: Test 02/22/25 13:41 02/22/25 10:53 02/22/25 05:38 02/21/25 22:55 Range/Units Whole Blood Glucose 60 L 70-110 MG/DL Sodium Level 138 136-145 mmol/L Potassium Level 3.9 3.5-5.1 mmol/L Chloride Level 106 101-111 mmol/L Carbon Dioxide Level 21 21-32 mmol/L Blood Urea Nitrogen 16 7-18 mg/dL Creatinine 0.7 0.5-1.0 mg/dL Glomerular Filtration Rate Calc 123 >90 mL/min Random Glucose 114 #H 70-105 mg/dL Total Calcium 7.9 L 8.5-10.1 mg/dL White Blood Count 12.5 H 4.8-10.8 K/uL Red Blood Count 3.88 L 4.00-5.50 MIL/uL Hemoglobin 11.5 L 12.0-16.0 g/dL Hematocrit 34.1 #L 36-48 % Mean Corpuscular Volume 87.9 79-99 fL Mean Corpuscular Hemoglobin 29.6 27.0-33.0 pg Mean Corpuscular Hemoglobin Concent 33.7 32.0-36.0 g/dL Red Cell Distribution Width 12.2 11.0-15.5 % Platelet Count 312 130-400 K/uL Mean Platelet Volume 9.9 7.5-10.5 fL Immature Granulocyte % (Auto) 0.2 0-1 % Neutrophils (%) (Auto) 48.7 40.0-77.0 % Lymphocytes (%) (Auto) 37.9 21.0-51.0 % Monocytes (%) (Auto) 11.1 3.0-13.0 % Eosinophils (%) (Auto) 1.6 0.0-8.0 % Basophils (%) (Auto) 0.5 0.0-5.0 % Neutrophils # (Auto) 6.1 1.8-7.7 K/uL Lymphocytes # (Auto) 4.8 1.0-4.8 K/uL Monocytes # (Auto) 1.4 H 0.1-1.0 K/uL Eosinophils # (Auto) 0.20 0.00-0.70 K/uL Basophils # (Auto) 0.06 0.00-0.20 K/uL Absolute Immature Granulocyte (auto 0.02 0-1 K/uL Nucleated Red Blood Cells 0.0 0.0-0.19 % Triglycerides Level 64 30-200 mg/dL Cholesterol Level 193 # <200 mg/dL LDL Cholesterol 114 H 0-99 mg/dL HDL Cholesterol 56 35-85 mg/dL Lipase 14 L 16-77 U/L Thyroid Stimulating Hormone (TSH) 1.65 0.36-3.74 uIU/mL Whole Blood Ketones Quantitative 5.8 H 0.0-0.6 mmol/L Test 02/21/25 22:14 02/21/25 21:30 02/21/25 20:21 Range/Units Bedside Glucose Comment Protocol Initiated Urine Color COLORLESS YELLOW Urine Appearance CLEAR CLEAR Urine pH 5.0 5.0-8.0 Urine Specific [place] 1.020 1.001-1.031 Urine Protein NEGATIVE NEGATIVE mg/dL Urine Glucose (UA) >=1000 H NEGATIVE mg/dL Urine Ketones 150 H NEGATIVE mg/dL Urine Occult Blood NEGATIVE NEGATIVE Urine Nitrate NEGATIVE NEGATIVE Urine Bilirubin NEGATIVE NEGATIVE mg/dL Urine Urobilinogen 0.2 0.2-1.0 mg/dL Urine Leukocyte Esterase NEGATIVE NEGATIVE Otf/uL Urine RBC 0-1 0-1 /HPF Urine WBC 0-1 0-1 /HPF Urine Squamous Epithelial Cells MOD 0-2 /HPF Urine Bacteria None None Seen /HPF Urine Hyaline Casts 2-5 H 0-1 /LPF /LPF Urine Other Casts 2 None Seen /LPF Urine HCG, Qualitative NEGATIVE NEGATIVE Urine Opiates Screen NEGATIVE NEGATIVE Urine Barbiturates Screen NEGATIVE NEGATIVE Urine Phencyclidine Screen NEGATIVE NEGATIVE Urine Amphetamines Screen NEGATIVE NEGATIVE Urine Benzodiazepines Screen NEGATIVE NEGATIVE Urine Cocaine Screen NEGATIVE NEGATIVE Urine Marijuana (THC) Screen NEGATIVE NEGATIVE White Cell Morphology Comment See comments Hemoglobin A1c 7.6 H 4.0-6.0 % Estimated Average Glucose (eAG) 171 H 70-126 mg/dL Current Medications Medications (Trade) Dose Ordered Sig/José Route PRN Reason Start Time Stop Time Status Last Admin Dose Admin Acetaminophen (TYLenol 325MG TAB) 650 mg Q4H PRN PO MILD PAIN (1-3) 02/21/25 23:00 03/23/25 22:59 Acetaminophen (TYLenol 325MG TAB) 650 mg Q6H PRN PO TEMPERATURE GREATER THAN 101.5 02/21/25 23:00 03/23/25 22:59 Dextrose/Sodium Chloride 1,000 ml @ 0 mls/hr AD IV 02/21/25 22:00 02/21/25 22:51 DC Dextrose/Sodium Chloride 1,000 ml @ 0 mls/hr AD IV 02/21/25 23:00 02/22/25 12:10 DC Famotidine (Pepcid 20mg Vial) 20 mg DAILY IV 02/22/25 09:00 03/24/25 08:59 02/22/25 10:57 20 MG Insulin Glargine (LANtus 100 UNITS/ML 10 ML VIAL) 10 units HS SQ 02/22/25 21:00 03/24/25 20:59 Insulin Human Regular (humuLIN R 100 UNIT/ML 3ML) INSULIN SLIDING SCAL... ACHS SQ 02/22/25 16:30 03/24/25 16:29 Insulin Human Regular 100 unit/ Sodium Chloride 101 ml @ 0 mls/hr PROTOCOL IV 02/21/25 22:00 02/21/25 22:53 DC 02/21/25 22:16 6.5 MLS/HR Insulin Human Regular 100 unit/ Sodium Chloride 101 ml @ 0 mls/hr PROTOCOL IV 02/21/25 23:00 03/23/25 22:59 Ketorolac Tromethamine (toRADol) 15 mg Q6H PRN IV MODERATE PAIN (4-6) 02/21/25 23:00 02/26/25 22:59 Magnesium Sulfate 50 ml @ 0 mls/hr PROTOCOL IV 02/21/25 22:00 02/21/25 22:51 DC Magnesium Sulfate 50 ml @ 0 mls/hr PROTOCOL IV 02/21/25 23:00 03/23/25 22:59 Mannitol (Osmitrol 20% 250ml Bag) 33 gm AD IV 02/21/25 22:00 02/21/25 21:42 DC Ondansetron HCl (zoFRAN 4MG INJ) 4 mg Q6H PRN IV NAUSEA/VOMITING 02/21/25 23:00 03/23/25 22:59 Potassium Chloride/Dextrose/ Sod Cl 1,000 ml @ 0 mls/hr AD IV 02/21/25 22:00 02/21/25 22:51 DC Potassium Chloride/Dextrose/ Sod Cl 1,000 ml @ 0 mls/hr AD IV 02/21/25 23:00 02/22/25 12:10 DC 02/22/25 05:29 175 MLS/HR Potassium Chloride/Sodium Chloride 1,000 ml @ 0 mls/hr PROTOCOL IV 02/21/25 22:00 02/21/25 22:51 DC Potassium Chloride/Sodium Chloride 1,000 ml @ 0 mls/hr PROTOCOL IV 02/21/25 23:00 03/23/25 22:59 Sodium Chloride 1,000 ml @ 200 mls/hr PROTOCOL IV 02/21/25 22:00 02/21/25 22:51 DC 02/21/25 22:07 200 MLS/HR Sodium Chloride 1,000 ml @ 200 mls/hr PROTOCOL IV 02/21/25 23:00 03/23/25 22:59 02/22/25 08:10 200 MLS/HR DIAGNOSTICS / RADIOLOGY: [ ] ASSESSMENT: Diabetic ketoacidosis with elevated anion gap, POA, resolved Acute kidney injury POA, resolved Possible dehydration POA Uncontrolled diabetes type 1 on insulin pump POA Pseudohyponatremia due to hyperglycemia POA, resolved Acute leukocytosis POA, most likely secondary to dehydration PLAN: Diabetic ketoacidosis with elevated anion gap, POA, resolved * On admission blood glucose was 536, bicarbonate 15, whole blood ketones 5.8 and anion gap of 26 * Patient's was started on insulin drip along with D5 NS and normal saline * Anion gap reduced to 9, bicarb at 24 * We will repeat whole blood ketones tomorrow * Patient transitioned to insulin Lantus 10 units and medium dose sliding scale insulin * Patient started on regular diet and is transferred to med surg unit Acute kidney injury, secondary to dehydration POA, resolved * Patient's creatinine was elevated on admission at 1.4, secondary to emesis and dehydration * Patient's creatinine has returned to her baseline at 0.8 With adequate hydration * We will continue to monitor the hydration status Uncontrolled type 1 diabetes on insulin pump, POA * Patient currently uses insulin pump at home which is managed by 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 Lamb * Her HB A1c is 7.6 * Continue insulin Lantus 10 units and medium dose sliding scale insulin * Endocrinology consult was placed and we will follow their recommendation GI prophylaxis with famotidine and PRN medications for nausea and pain. ATTESTATION BY PHYSICIAN I have seen and examined the patient. I reviewed the documentation, medical decision making, and treatment plan as noted by the resident physician above. I agree with the findings and plan of care. FELICITA KEITH MD, HARSHAVARDHA MD Feb 22, 2025 13:46
--- NOTE | 2025-02-22 13:58 | NUR ---
DCP:HOME Pt currently lives with her ex mother in law Padmini [phone]. Pt does not have any DME, home health, or provider services. Pt states that she is able to complete ADLs independently. PCP is [facility] and uses [facility] for any RX needs. At [place] pt will want to go home and family can assist with transportation. Addendum: 02/22/25 at 1403 by CLEMENT PETERSON SS Amended: Links added.
--- NOTE | 2025-02-22 14:58 | CONS ---
[facility] CONSULTATION NOTE Date Patient Seen: Feb 22, 2025 Time of Visit: 14:57 Supervising Physician: Dr Lacie Hou Reason for Consultation: ICU medical management Primary Care Physician: [ ] Outpatient Specialists: [ ] Inpatient Consults: [ ] PROBLEM LIST: DKA TAL Diabetes type 1, insulin dependent HPI: 24-year-old female with past medical history of type 1 diabetes with previous history of DKA who presented to the ED for complaints of nausea and vomiting x 3 today.Patient has an insulin pump however she missed her dose during lunch and dinner because she ran out [place] was [place] and when gets here at night she said she tried to give herself a shot and rechecked her blood sugar remains high so she decided to come to the ED for evaluation.Patient also reports having mild epigastric pain and pain does not radiate.Patient has similar episode in the past and has to be admitted in ICU for insulin drip.Patient reports she has an outpatient cardiology appointment tomorrow for evaluation of palpitation. Seen and examined patient in the ER awake,alert and coherent,in no apparent distress. Latest vital signs temperature 97.9, heart rate 119, blood pressure 128/87, saturation 96% on room air. Labs: WBC 15 with negative left shift of neutrophils 86, hemoglobin 14, hematocrit 42, platelet count 310. Sodium 134, potassium five, chloride 93, carbon dioxide 15, BUN 32, creatinine 1.4, GFR 54 random glucose 536 total calcium 9.6 urine toxicology negative. Urinalysis significant for urine glucose above 1000 and urine ketones 150 hyaline casts 2- 5. Urine test negative. While in the ER patient received 1 L NS bolus, Zofran 4 mg IV, and Toradol 15 mg IV. We will admit patient to ICU for further medical management. PAST MEDICAL HX: see above PAST SURGICAL HX: noncontributory SOCIAL HISTORY: No tobacco, ETOH, or illicit drug use Coded Allergies: levofloxacin (Unverified Allergy, Unknown, 12/19/23) REVIEW OF SYSTEMS: 12 point ROS reviewed with patient. Pertinent positives mentioned above. Otherwise negative. PHYSICAL EXAM: GENERAL: alert, weak, awake oriented x 3 HEENT: EOMI, Sclera non icteric, moist mucosa NECK: Supple, no JVD, trachea midline LUNGS: Clear breath sounds bilaterally. No wheezes HEART: Regular rate and rhythm. Normal S1 and S2, without murmurs ABD: Abdomen soft, nontender. Bowel sounds present EXT: No clubbing cyanosis or edema NEURO: Alert and oriented to person, follows commands Vital Signs (last 8hr) Date Time Temp Pulse Resp B/P (MAP) Pulse Ox O2 Delivery O2 Flow Rate FiO2 02/22/25 12:00 98.6 108 18 118/78 99 Room Air 02/22/25 07:33 98.2 108 18 112/78 100 Room Air* 0 21 02/22/25 06:59 98.2 105 20 104/64 97 Room Air* 0 21 LABS: Hematology Labs: Test 02/22/25 05:38 02/21/25 20:21 Range/Units White Blood Count 12.5 H 4.8-10.8 K/uL Red Blood Count 3.88 L 4.00-5.50 MIL/uL Hemoglobin 11.5 L 12.0-16.0 g/dL Hematocrit 34.1 #L 36-48 % Mean Corpuscular Volume 87.9 79-99 fL Mean Corpuscular Hemoglobin 29.6 27.0-33.0 pg Mean Corpuscular Hemoglobin Concent 33.7 32.0-36.0 g/dL Red Cell Distribution Width 12.2 11.0-15.5 % Platelet Count 312 130-400 K/uL Mean Platelet Volume 9.9 7.5-10.5 fL Immature Granulocyte % (Auto) 0.2 0-1 % Neutrophils (%) (Auto) 48.7 40.0-77.0 % Lymphocytes (%) (Auto) 37.9 21.0-51.0 % Monocytes (%) (Auto) 11.1 3.0-13.0 % Eosinophils (%) (Auto) 1.6 0.0-8.0 % Basophils (%) (Auto) 0.5 0.0-5.0 % Neutrophils # (Auto) 6.1 1.8-7.7 K/uL Lymphocytes # (Auto) 4.8 1.0-4.8 K/uL Monocytes # (Auto) 1.4 H 0.1-1.0 K/uL Eosinophils # (Auto) 0.20 0.00-0.70 K/uL Basophils # (Auto) 0.06 0.00-0.20 K/uL Absolute Immature Granulocyte (auto 0.02 0-1 K/uL Nucleated Red Blood Cells 0.0 0.0-0.19 % White Cell Morphology Comment See comments Chemistry Labs: Test 02/22/25 13:41 02/22/25 10:53 02/22/25 05:38 02/21/25 22:55 Range/Units Whole Blood Glucose 60 L 70-110 MG/DL Sodium Level 138 136-145 mmol/L Potassium Level 3.9 3.5-5.1 mmol/L Chloride Level 106 101-111 mmol/L Carbon Dioxide Level 21 21-32 mmol/L Blood Urea Nitrogen 16 7-18 mg/dL Creatinine 0.7 0.5-1.0 mg/dL Glomerular Filtration Rate Calc 123 >90 mL/min Random Glucose 114 #H 70-105 mg/dL Total Calcium 7.9 L 8.5-10.1 mg/dL Triglycerides Level 64 30-200 mg/dL Cholesterol Level 193 # <200 mg/dL LDL Cholesterol 114 H 0-99 mg/dL HDL Cholesterol 56 35-85 mg/dL Lipase 14 L 16-77 U/L Thyroid Stimulating Hormone (TSH) 1.65 0.36-3.74 uIU/mL Whole Blood Ketones Quantitative 5.8 H 0.0-0.6 mmol/L Test 02/21/25 22:14 02/21/25 20:21 Range/Units Bedside Glucose Comment Protocol Initiated Hemoglobin A1c 7.6 H 4.0-6.0 % Estimated Average Glucose (eAG) 171 H 70-126 mg/dL DIAGNOSTICS / RADIOLOGY RESULTS: [ ] PLAN Admit to ICU DKA protocol Follow potassium levels Fluids Resume diet Pending 2nd BNP for closed gap? NEURO: Minimize central acting medications as possible. Fall Precautions. Well lighted room through the day and minimize interruptions through the night to prevent acute delirium. PULMONARY: Supplemental 02 as needed Titrate Fio2 to keep Spo2 > or = 90% DuoNebs and CPT as needed IS hourly while awake for pulmonary hygiene Out of bed to chair as tolerated VAP Bundle Vent/BIPAP Settings: [ ] Driving pressure: [ ] P Plat: [ ] Static C: [ ] Static R: [ ] P/F Ratio: [ ] CARDIOVASCULAR: Follow hemodynamics. Titrate vasopressor to keep MAP >65 or systolic blood pressure >95mmHg DIPS: [ ] LINES: [ ] GI & NUTRITION: Continue nutritional support Aspirations precautions Prokinetic agents and laxatives as needed KIDNEYS & ELECTROLYTES: Strict monitoring of intake and output Daily weights Avoid nephrotoxic agents Monitor electrolytes and replace as needed Goal urine output of 30mL/hr or 0.5mL/kg/hr Urine output: [ ] Fluid Balance: [ ] ENDOCRINE: Maintain blood glucose between 100-180 at all times. Insulin sliding scale for blood glucose management INFECTIOUS DISEASE: Trend temperature. Noriega-culture if febrile. Micro: [ ] Antibiotics: [ ] HEMATOLOGY & COAGULATION: Monitor H&H. Keep Hgb > 7 Transfuse 1 unit of PRBC for Hgb < 7 Transfuse 1 pack of platelets of platelets < 20, 000 Watch for any signs and symptoms of bleeding SKIN: Pressure ulcer prevention per facility protocol Rehab: PT/OT Prophylaxis: GI: [ ] DVT: [ ] Code Status: Full Resuscitation Disposition: [ ] Other: Total patient critical care time exceeds 35 minutes excluding all procedures. Case was discussed and seen with my supervising physician. The above plan was formulated and agreed upon. MANOLO RUBIN PAC Feb 22, 2025 14:58
[2025-02-22 15:04] LABS: CREATININE 0.8 mg/dL (0.5-1.0); GLOMERULAR FILTR. RATE CALC 105.0 mL/min (>90); GLUCOSE,RANDOM 129.0 mg/dL (70-105); SODIUM SERUM 140.0 mmol/L (136-145); UREA NITROGEN, BLOOD 13.0 mg/dL (7-18)
[2025-02-22 16:02] VITALS: BP 103/68; PULSE 104; RESP 20; TEMP 98.4
--- NOTE | 2025-02-22 18:00 | NUR ---
PT HAS BEEN OFF INSULIN DRIP AND HAS BEEN ADVISED OF PROCEDURES PRIOR TO RENDERING. RICHARD WARREN SAW PT AND ADVISED PT THAT SHE MIGHT BE DISCHARGED TOMORROW IF HER BLOOD SUGARS STAY STABLE.
[2025-02-22 19:31] LABS: CREATININE 0.7 mg/dL (0.5-1.0); GLOMERULAR FILTR. RATE CALC 123.0 mL/min (>90); GLUCOSE,RANDOM 350.0 mg/dL (70-105); SODIUM SERUM 135.0 mmol/L (136-145); UREA NITROGEN, BLOOD 12.0 mg/dL (7-18)
--- NOTE | 2025-02-22 21:48 | NUR ---
REPORT GIVEN TO MAAME RN, PT GOING TO RM [id number]
[2025-02-22 21:55] VITALS: BP 122/74; PULSE 105; RESP 18; TEMP 98.4
[2025-02-22 23:24] LABS: CREATININE 0.7 mg/dL (0.5-1.0); GLOMERULAR FILTR. RATE CALC 123.0 mL/min (>90); GLUCOSE,RANDOM 129.0 mg/dL (70-105); SODIUM SERUM 140.0 mmol/L (136-145); UREA NITROGEN, BLOOD 14.0 mg/dL (7-18)
[2025-02-23] MEDS ORDERED: PoTASSium chl 10% ELIXIR 20MEQ 20 MEQ/15 ML UDCUP PO PRN
[2025-02-23] MEDS: PoTASSium chloRIDE 20MEQ ER 20 MEQ ERTAB PO PRN (00:07)
[2025-02-23 03:52] VITALS: BP 108/71; PULSE 102; RESP 17; TEMP 98.2
[2025-02-23 05:29] LABS: NUCLEATED RED BLOOD CELLS 0.0 % (0.0-0.19); PLATELET COUNT (AUTO) 269.0 K/uL (130-400); RED BLOOD CELL COUNT(AUTO) 4.04 MIL/uL (4.00-5.50); RED CELL DISTRIBUTION WIDTH 12.1 % (11.0-15.5); WHITE BLOOD COUNT (AUTO) 9.3 K/uL (4.8-10.8)
[2025-02-23 05:46] LABS: CREATININE 0.8 mg/dL (0.5-1.0); GLOMERULAR FILTR. RATE CALC 105.0 mL/min (>90); GLUCOSE,RANDOM 150.0 mg/dL (70-105); SODIUM SERUM 138.0 mmol/L (136-145); UREA NITROGEN, BLOOD 13.0 mg/dL (7-18)
[2025-02-23 07:58] VITALS: O2SAT 98
[2025-02-23 08:00] VITALS: BP 118/80; PULSE 103; RESP 18; TEMP 98.5
[2025-02-23 12:00] VITALS: BP 125/79; PULSE 98; RESP 18; TEMP 98.3
--- NOTE | 2025-02-23 13:57 | DS ---
Discharge Summary Hospital Course Summary: This is a 24-year-old female with past medical history of type 1 diabetes with previous history of DKA who presented to the ED for complaints of nausea and vomiting x 3 today. Patient has an insulin pump however she missed her dose during lunch and dinner because she ran out while she was [place] of state and when gets here at night she said she tried to give herself a shot and rechecked her blood sugar remains high so she decided to come to the ED for evaluation. Patient also reports having mild epigastric pain and pain does not radiate. Patient has similar episode in the past and physician to be admitted to ICU was made. The patient showed rapid improvement to therapy while still in the ED and she was directly transferred to [facility] floor. On admission vital signs temperature 97.9, heart rate 119, blood pressure 128/87, saturation 96% on room air. Labs: WBC 15 with negative left shift of neutrophils 86, hemoglobin 14, hematocrit 42, platelet count 310. Sodium 134, potassium five, chloride 93, carbon dioxide 15, BUN 32, creatinine 1.4, GFR 54, random glucose 536 total calcium 9.6. Anion gap was 26 and whole blood ketones were 5.8 suggestive of diabetic ketoacidosis. Urinalysis significant for urine glucose above 1000 and urine ketones 150 and hyaline casts 2-5. Urine test negative. While in the ER patient received 1 L NS bolus, Zofran 4 mg IV, and Toradol 15 mg IV. Patient has responded very well to IV hydration and insulin therapy. Patient was transitioned to basal insulin with 10 units Lantus and medium dose sliding scale insulin. Her anion gap reduced subsequently to 7 and ketones were 1 on 02/23/2025. Patient bicarbonate was 25. Patient was tolerating diet without any nausea and vomiting and she had no abdominal pain. Patient will be discharged home in stable condition and it was confirmed with the patient that a prescription for Omnipod was readily available with her pharmacy. Dr. Manuel also evaluated the patient and educated the patient to adhere to insulin regimen and in the unforeseen events, instructed to use [id number] NovoLog insulin. Patient was informed to look for red flag signs like increasing nausea, vomiting, abdominal pain, fever and return to ED if needed. Central Scheduler(s): Dr. Manuel, Diesel Lube Tech Procedure(s): None Assessment/Plan: ASSESSMENT: Diabetic ketoacidosis with elevated anion gap, resolved Acute kidney injury, due to dehydration, resolved Pseudohyponatremia due to hyperglycemia POA, resolved Acute leukocytosis POA, most likely secondary to dehydration, resolved Uncontrolled diabetes type 1 on insulin pump Discharge Instructions: ADMISSION DATE : 02/21/25 DISCHARGE DATE: 02/23/25 DISPOSITION : Home CONDITION : Stable SOFTWARE SALES EXECUTIVE(S) : Dr. Manuel, environmental services project manager FOLLOW UP APPOINTMENT(S) : f/u with PCP in one 3-5 days PROCEDURES: None IMAGING (S) : report attached to summary MICROBIOLOGY : report attached to summary ACTIVITY : ad lorrie HOME MEDICATIONS : Continued Home Medications: Discontinued Reported Medications Insulin Glargine,Hum.rec.anlog (Lantus) 100 Unit/Ml Inj, 15 UNITS SQ DAILY, ML 10/20/24 Insulin Lispro (Humalog Brett Kwikpen) 100 Unit/Ml Ins.pen.hf, 8 UNIT SQ TIDAC 10/20/24 Discontinued Scripts Metoclopramide HCl (Metoclopramide HCl) 5 Mg Tablet, 5 MG PO BID, #60 TAB Prov:YELENA RUVALCABA MD 11/02/24 Medication Profile: No Active Prescriptions or Reported Meds Time spent arranging discharge: 1-30 minutes ATTESTATION BY PHYSICIAN I have seen and examined the patient. I reviewed the documentation, medical decision making, and treatment plan as noted by the resident physician above. I agree with the findings and plan of care. FELICITA KEITH MD, HARSHAVARDHA MD Feb 23, 2025 13:57
[2025-02-23 16:00] VITALS: BP 97/62; PULSE 103; RESP 18; TEMP 97.8
--- NOTE | 2025-02-23 16:10 | NUR ---
DISCHARGE DISCHARGE EDUCATION AND INSTRUCTIONS PROVIDED TO PATIENT PATIENT AWARE TO FOLLOW UP WITH PCP IN 3-5 DAYS PATIENT AWARE TO CONTINUE USING INSULIN PUMP DIRECTED. PATIENT AWARE TO TAKE NEW PRESCRIPTION TO PREFERRED PHARMACY. ALL QUESTIONS ANSWERED.
--- NOTE | 2025-02-23 19:00 | PN ---
[facility] PROGRESS NOTE BACK SOFTWARE ANALYST FOR 02/23/2025 Date Patient Seen: Feb 23, 2025 Time of Visit: 10:34 Supervising Physician: Dr. Lacie Hou Primary Care Physician: [ ] Outpatient Specialists: [ ] Inpatient Consults: [ ] PROBLEM LIST: DKA TAL Diabetes type 1, insulin dependent PLAN; Education on medications Continuation of current DVT/GI prophylaxis. Case management assisting with discharge arrangement for patient's medication Dispo per primary team INTERVAL HISTORY: 02/23-assessed in seen in the patient resting in bed in a high Rizo's position watching television friendly and conversant. Awake, oriented x3, alert, as well as in no acute distress. Reviewed and discussed the importance of medications for the management of diabetes mellitus type 1 Reviewed and discussed diagnostic tests, treatment, laboratory results, and vital signs. Vital signs stable. Afebrile. Critical care management we will be signing off at this time, thank you for the opportunity to participate in the care for this patient. REVIEW OF SYSTEMS: 12 point ROS reviewed with patient. Pertinent positives mentioned above. Otherwise negative. PHYSICAL EXAM: GENERAL: alert, weak, awake oriented x 3 HEENT: EOMI, Sclera non icteric, moist mucosa NECK: Supple, no JVD, trachea midline LUNGS: Clear breath sounds bilaterally. No wheezes HEART: Regular rate and rhythm. Normal S1 and S2, without murmurs ABD: Abdomen soft, nontender. Bowel sounds present EXT: No clubbing cyanosis or edema NEURO: Alert and oriented to person, follows commands Vital Signs (last 8hr) Date Time Temp Pulse Resp B/P (MAP) Pulse Ox O2 Delivery O2 Flow Rate FiO2 02/23/25 16:00 97.9 103 18 97/62 96 Room Air 02/23/25 12:00 98.2 98 18 125/79 100 Room Air 21 LABS: Hematology Labs: Test 02/23/25 05:22 02/22/25 05:38 02/21/25 20:21 Range/Units White Blood Count 9.3 # 4.8-10.8 K/uL Red Blood Count 4.04 4.00-5.50 MIL/uL Hemoglobin 11.7 L 12.0-16.0 g/dL Hematocrit 35.4 L 36-48 % Mean Corpuscular Volume 87.6 79-99 fL Mean Corpuscular Hemoglobin 29.0 27.0-33.0 pg Mean Corpuscular Hemoglobin Concent 33.1 32.0-36.0 g/dL Red Cell Distribution Width 12.1 11.0-15.5 % Platelet Count 269 130-400 K/uL Mean Platelet Volume 9.6 7.5-10.5 fL Nucleated Red Blood Cells 0.0 0.0-0.19 % Immature Granulocyte % (Auto) 0.2 0-1 % Neutrophils (%) (Auto) 48.7 40.0-77.0 % Lymphocytes (%) (Auto) 37.9 21.0-51.0 % Monocytes (%) (Auto) 11.1 3.0-13.0 % Eosinophils (%) (Auto) 1.6 0.0-8.0 % Basophils (%) (Auto) 0.5 0.0-5.0 % Neutrophils # (Auto) 6.1 1.8-7.7 K/uL Lymphocytes # (Auto) 4.8 1.0-4.8 K/uL Monocytes # (Auto) 1.4 H 0.1-1.0 K/uL Eosinophils # (Auto) 0.20 0.00-0.70 K/uL Basophils # (Auto) 0.06 0.00-0.20 K/uL Absolute Immature Granulocyte (auto 0.02 0-1 K/uL White Cell Morphology Comment See comments Chemistry Labs: Test 02/23/25 14:51 02/23/25 05:22 02/22/25 05:38 02/21/25 22:14 Range/Units Whole Blood Glucose 155 H 70-110 MG/DL Sodium Level 138 136-145 mmol/L Potassium Level 4.0 3.5-5.1 mmol/L Chloride Level 104 101-111 mmol/L Carbon Dioxide Level 25 21-32 mmol/L Blood Urea Nitrogen 13 7-18 mg/dL Creatinine 0.8 0.5-1.0 mg/dL Glomerular Filtration Rate Calc 105 >90 mL/min Random Glucose 150 H 70-105 mg/dL Whole Blood Ketones Quantitative 1.0 H 0.0-0.6 mmol/L Total Calcium 8.4 L 8.5-10.1 mg/dL Triglycerides Level 64 30-200 mg/dL Cholesterol Level 193 # <200 mg/dL LDL Cholesterol 114 H 0-99 mg/dL HDL Cholesterol 56 35-85 mg/dL Lipase 14 L 16-77 U/L Thyroid Stimulating Hormone (TSH) 1.65 0.36-3.74 uIU/mL Bedside Glucose Comment Protocol Initiated Test 02/21/25 20:21 Range/Units Hemoglobin A1c 7.6 H 4.0-6.0 % Estimated Average Glucose (eAG) 171 H 70-126 mg/dL DIAGNOSTICS / RADIOLOGY RESULTS: [ ] PLAN NEURO: Minimize central acting medications as possible. Maintain fall precautions, adequate lighting during the day PULMONARY: Supplemental 02 as needed. Maintain aspiration precautions at all times CARDIOVASCULAR: Follow hemodynamics. Vital signs per facility protocol GI & NUTRITION: Continue with nutritional support. Continue stool softeners and laxatives as needed. KIDNEYS & ELECTROLYTES: Strict monitoring of intake, output and overall fluid balance. Avoid nephrotoxic medications to the extent possible. Medications to be dosed according to renal function. Monitor electrolytes and replace as needed ENDOCRINE: Maintain blood glucose between 100-180 at all times. Hypoglycemia protocol in place INFECTIOUS DISEASE: Trend temperature, WBC and procalcitonin level Follow cultures, deescalate antibiotics as soon as possible. Panculture if new onset fever ONCOLOGY/HEMATOLOGY/COAGULATION: Monitor for s/s of bleeding Monitor hemoglobin, coagulation studies as needed SKIN: Pressure ulcer prevention per facility protocol Specialty mattress ORTHO/REHAB: Continue PT/OT Prophylaxis: Continue GI and DVT prophylaxis Code Status: Full Resuscitation Disposition: TBD Other: Total patient care time exceeds 35 minutes excluding all procedures. AYLA ROSENBERG AGACNP Feb 23, 2025 19:00
--- NOTE | 2025-02-23 21:26 | CONS ---
CONSULT NOTE: Endocrinology Consult Chief complaint: nausea/vomiting and dka Reason for consult: dka and uncontrolled dm-1 DOS:02/23/25 HISTORY OF PRESENT ILLNESS: This is a 24-year-old female with past medical history of type 1 diabetes with previous history of DKA who presented to the ED for complaints of nausea and vomiting x 3 today.Patient has been on insulin pump however she missed her dose during lunch and dinner because [place] and when gets here at night she said she tried to give herself a shot and rechecked her blood sugar remains high so she decided to come to the ED for evaluation.Patient also reports having mild epigastric pain and pain does not radiate.Patient has similar episode in the past and has to be admitted in ICU for insulin drip.Patient reports she has an outpatient cardiology appointment tomorrow for evaluation of palpitation. Seen and examined patient in the ER awake,alert and coherent,in no apparent distress. Latest vital signs temperature 97.9, heart rate 119, blood pressure 128/87, saturation 96% on room air. Labs: WBC 15 with negative left shift of neutrophils 86, hemoglobin 14, hematocrit 42, platelet count 310. Sodium 134, potassium five, chloride 93, carbon dioxide 15, BUN 32, creatinine 1.4, GFR 54 random glucose 536 total calcium 9.6 urine toxicology negative. Urinalysis significant for urine glucose above 1000 and urine ketones 150 hyaline casts 2- 5. Urine test negative. While in the ER patient received 1 L NS bolus, Zofran 4 mg IV, and Toradol 15 mg IV. Home diabetic regimen: on omnipod 5 g 6 insulin pump Hba1c 7.6% off insulin drip and dka resolved. bicarbs improved to normal. REVIEW OF SYSTEMS CONSTITUTIONAL: Denies fevers, chills, or night sweats. No unintentional weight loss reported. NEUROLOGICAL: Denies headache, amaurosis fugax, motor weakness, sensory deficit, vertigo/spinning sensation, gait abnormalities, or tremors. ENT: No hearing loss, otalgia, otorrhea, rhinitis, rhinorrhea, hoarseness, or sore throat. CARDIOVASCULAR: Denies any exertional angina, dyspnea on exertion, orthopnea, p aroxysmal nocturnal dyspnea, palpitations, life-threatening arrhythmias, claudication. PULMONARY: Denies any shortness of breath, cough, phlegm/sputum, hemoptysis, pleuritic chest pain. SLEEP: Denies morning headaches, daytime somnolence or napping. Denies difficulty falling asleep, staying asleep, waking from sleep. Denies knowledge of snoring. GASTROINTESTINAL: Denies any type of dysphagia to either liquids or solids. Denies pyrosis, early satiety, diarrhea, constipation, or changes in stool consistency or caliber. Denies coffee-ground emesis, hematemesis, hematochezia, or melanotic stools. GENITOURINARY: Denies frequency, urgency, nocturia, hematuria or incontinence (Storage/Irritative symptoms.) Low urinary stream, straining to void, urinary intermittency or hesitancy, splitting of the voiding stream, terminal dribbling. ENDOCRINOLOGIC: Denies polyuria, polydipsia, polyphagia or heat/cold intolerances. HEMATOLOGIC: Denies thrombophilia/previous clots, or coagulopathy/bleeding disorders. ONCOLOGIC: Denies personal history of malignancy. DERMATOLOGIC: Denies rashes or pruritus. PSYCHIATRIC: Denies any suicidal or homicidal ideation. Denies hallucinations. PAST MEDICAL HISTORY: [ Diabetes type 1 with history of DKA on insulin pump ] PAST SURGICAL HISTORY: [ Patient denies ] PAST SOCIAL HISTORY: [ Patient lives with family. Patient denies alcohol tobacco and recreational drug use ] FAMILY HISTORY: [ Diabetes ] Coded Allergies: levofloxacin (Unverified Allergy, Unknown, 12/19/23) PHYSICAL EXAM GENERAL APPEARANCE: The patient is awake, alert, and oriented, in no acute cardiopulmonary distress. NEUROLOGICAL: Cranial nerves II-XII grossly intact. Motor is 5/5 in bilateral upper and lower extremities proximal to distal. No sensory deficits. HEENT: Face is symmetric. Pupils are equal and reactive. Extraocular movements are intact. NECK: Supple. No JVD. No thyromegaly. No submental, submandibular, pre- /postauricular, occipital or supraclavicular lymphadenopathy. CHEST: Normal chest expansion. No Telemetry. LUNGS: Absence of any rales, rhonchi or any wheezing. CARDIOVASCULAR: Regular. S1 and S2 normal. No appreciable rubs, murmurs or gallops. ABDOMEN: Soft and nondistended. There is no rebound, voluntary guarding, or rigidity. : Deferred. No [place]illa. EXTREMITIES: Non-edematous and not cyanotic. No clubbing. Good capillary refill. SKIN: No skin breakdown. ASSESSMENT: Diabetic ketoacidosis POA resolved Home diabetic regimen: on omnipod 5 g 6 insulin pump Hba1c 7.6% off insulin drip and dka resolved. bicarbs improved to normal. glucose runs greater than 200 mg/dl. Acute kidney injury POA improved Possible dehydration POA improved Uncontrolled diabetes type 1 on insulin pump POA Pseudohyponatremia due to hyperglycemia POA PLAN: increase Lantus to 15 units daily and adjust for fasting glucose. start Regular insulin 5 units three times before meals and adjust for post- prandial glucose. Continue medium dose sliding scale insulin. Monitor glucose q x 6 hourly. Continue carb consistent diet. Keep glucose less than 180 mg/dl. resume dexcom g 7 cgm and omnipod 5 g 6 insulin pump. follow with endocrinology dr. sullivan. prescription for insulin pump pods given as she ran out. Thanks for allowing me to participate in patient care and will continue to follow up. Vital Signs 02/23/25 02/23/25 02/23/25 07:58 12:00 16:00 Temp 97.9 Pulse 103 Resp 18 B/P (MAP) 97/62 Pulse Ox 96 O2 Delivery Room Air O2 Flow Rate 0 FiO2 21 Hematology Labs: Test 02/23/25 05:22 02/22/25 05:38 Range/Units White Blood Count 9.3 # 4.8-10.8 K/uL Red Blood Count 4.04 4.00-5.50 MIL/uL Hemoglobin 11.7 L 12.0-16.0 g/dL Hematocrit 35.4 L 36-48 % Mean Corpuscular Volume 87.6 79-99 fL Mean Corpuscular Hemoglobin 29.0 27.0-33.0 pg Mean Corpuscular Hemoglobin Concent 33.1 32.0-36.0 g/dL Red Cell Distribution Width 12.1 11.0-15.5 % Platelet Count 269 130-400 K/uL Mean Platelet Volume 9.6 7.5-10.5 fL Nucleated Red Blood Cells 0.0 0.0-0.19 % Immature Granulocyte % (Auto) 0.2 0-1 % Neutrophils (%) (Auto) 48.7 40.0-77.0 % Lymphocytes (%) (Auto) 37.9 21.0-51.0 % Monocytes (%) (Auto) 11.1 3.0-13.0 % Eosinophils (%) (Auto) 1.6 0.0-8.0 % Basophils (%) (Auto) 0.5 0.0-5.0 % Neutrophils # (Auto) 6.1 1.8-7.7 K/uL Lymphocytes # (Auto) 4.8 1.0-4.8 K/uL Monocytes # (Auto) 1.4 H 0.1-1.0 K/uL Eosinophils # (Auto) 0.20 0.00-0.70 K/uL Basophils # (Auto) 0.06 0.00-0.20 K/uL Absolute Immature Granulocyte (auto 0.02 0-1 K/uL Chemistry Labs: Test 02/23/25 14:51 02/23/25 05:22 02/22/25 05:38 02/21/25 22:14 Range/Units Whole Blood Glucose 155 H 70-110 MG/DL Sodium Level 138 136-145 mmol/L Potassium Level 4.0 3.5-5.1 mmol/L Chloride Level 104 101-111 mmol/L Carbon Dioxide Level 25 21-32 mmol/L Blood Urea Nitrogen 13 7-18 mg/dL Creatinine 0.8 0.5-1.0 mg/dL Glomerular Filtration Rate Calc 105 >90 mL/min Random Glucose 150 H 70-105 mg/dL Whole Blood Ketones Quantitative 1.0 H 0.0-0.6 mmol/L Total Calcium 8.4 L 8.5-10.1 mg/dL Triglycerides Level 64 30-200 mg/dL Cholesterol Level 193 # <200 mg/dL LDL Cholesterol 114 H 0-99 mg/dL HDL Cholesterol 56 35-85 mg/dL Lipase 14 L 16-77 U/L Thyroid Stimulating Hormone (TSH) 1.65 0.36-3.74 uIU/mL Bedside Glucose Comment Protocol Initiated Current Medications Medications (Trade) Dose Ordered Sig/José Route Start Time Stop Time Status Last Admin Dose Admin Dextrose/Sodium Chloride 1,000 ml @ 0 mls/hr AD IV 02/21/25 22:00 02/21/25 22:51 DC Dextrose/Sodium Chloride 1,000 ml @ 0 mls/hr AD IV 02/21/25 23:00 02/22/25 12:10 DC Famotidine (Pepcid 20mg Vial) 20 mg DAILY IV 02/22/25 09:00 02/23/25 16:29 DC 02/23/25 07:58 20 MG Insulin Glargine (LANtus 100 UNITS/ML 10 ML VIAL) 10 units HS SQ 02/22/25 21:00 02/23/25 16:29 DC 02/22/25 20:42 10 UNITS Insulin Human Regular (humuLIN R 100 UNIT/ML 3ML) INSULIN SLIDING SCAL... ACHS SQ 02/22/25 16:30 02/23/25 16:29 DC 02/23/25 12:02 14 UNIT Insulin Human Regular 100 unit/ Sodium Chloride 101 ml @ 0 mls/hr PROTOCOL IV 02/21/25 22:00 02/21/25 22:53 DC 02/21/25 22:16 6.5 MLS/HR Insulin Human Regular 100 unit/ Sodium Chloride 101 ml @ 0 mls/hr PROTOCOL IV 02/21/25 23:00 02/23/25 00:00 DC Magnesium Sulfate 50 ml @ 0 mls/hr PROTOCOL IV 02/21/25 22:00 02/21/25 22:51 DC Magnesium Sulfate 50 ml @ 0 mls/hr PROTOCOL IV 02/21/25 23:00 02/23/25 16:29 DC Mannitol (Osmitrol 20% 250ml Bag) 33 gm AD IV 02/21/25 22:00 02/21/25 21:42 DC Potassium Chloride/Dextrose/ Sod Cl 1,000 ml @ 0 mls/hr AD IV 02/21/25 22:00 02/21/25 22:51 DC Potassium Chloride/Dextrose/ Sod Cl 1,000 ml @ 0 mls/hr AD IV 02/21/25 23:00 02/22/25 12:10 DC 02/22/25 05:29 175 MLS/HR Potassium Chloride/Sodium Chloride 1,000 ml @ 0 mls/hr PROTOCOL IV 02/21/25 22:00 02/21/25 22:51 DC Potassium Chloride/Sodium Chloride 1,000 ml @ 0 mls/hr PROTOCOL IV 02/21/25 23:00 02/23/25 00:00 DC Sodium Chloride 1,000 ml @ 200 mls/hr PROTOCOL IV 02/21/25 22:00 02/21/25 22:51 DC 02/21/25 22:07 200 MLS/HR Sodium Chloride 1,000 ml @ 200 mls/hr PROTOCOL IV 02/21/25 23:00 02/23/25 00:00 DC 02/22/25 08:10 200 MLS/HR NARESH MORENO MD Feb 23, 2025 21:26
== END 2025-02-23 16:16 | disposition home or self-care (01) | DRG 638 ==
LOC: EDH 19:37 → EDHIP 22:41 → 3BH 02-22 22:09
PROVIDERS: ADMIT Internal Medicine; ATTEND Internal Medicine
DX: E10.10 Type 1 diabetes mellitus with ketoacidosis without coma (principal); N17.9 Acute kidney failure, unspecified; R65.10 Systemic inflammatory response syndrome (SIRS) of non-infectious origin without acute organ dysfunction; E86.0 Dehydration; Z96.41 Presence of insulin pump (external) (internal); D72.829 Elevated white blood cell count, unspecified; Z79.4 Long term (current) use of insulin; Z83.3 Family history of diabetes mellitus; Z79.899 Other long term (current) drug therapy
CPT/HCPCS: 36415; 80048; 80061; 80305; 81001; 81025; 82010; 82948; 83036; 83690; 84443; 85025; 85027; 96365; 96375; 99285; G0378; J1815; J2405; J3480; J1308